=== PATIENT | female | born 1940 | race Caucasian/White ===

== ENCOUNTER 2017-03-16 14:24 | Emergency (ER) | payer MEDICARE, BC ==
[2017-03-16] MEDS ORDERED: SODIUM CHLORIDE 0.9% 1,000 ML IV ONE (14:33)
[2017-03-16] MEDS ORDERED: ONDANSETRON 4 MG/2 ML VIAL IVP STA (14:33)
--- NOTE | 2017-03-16 14:36 | ED ---
Dizziness HPI - General Stated Complaint: Dizziness Time Seen by Provider: 03/16/17 14:31 Source: patient, EMS Mode of arrival: EMS Limitations: no limitations - History of Present Illness Initial Comments: This is a 76-year-old female with a history of CAD and asthma who presents emergency department for an episode of lightheadedness associated with nausea and vomiting. She states that she had eaten a sandwich and then came home and laid on the couch. The phone rang and she got up to answer the phone answered talking to her son area and shortly after talking to her son she felt very nauseated and lightheaded and thought she was going to pass out. She did not pass out and called an ambulance. She states that she not have any associated chest pain or shortness of breath. She states that she no longer feels lightheaded however has some persistent nausea. No current chest pain. No history of blood clots. No recent trauma or surgeries. No other complaints. - Related Data Home Medications Medication Instructions Recorded Confirmed Beclomethasone Dipropionate [Qvar 2 puff INHALATION RT-BID 04/17/14 03/16/17 80 mcg/puff] Clopidogrel [Plavix] 75 mg PO Q48H 04/17/14 03/16/17 Famotidine [Pepcid] 20 mg PO BID 04/17/14 03/16/17 Montelukast [Singulair] 10 mg PO HS 04/17/14 03/16/17 Nitroglycerin Sl Tabs [Nitrostat] 0.4 mg SL Q5M PRN 04/17/14 03/16/17 Rosuvastatin Calcium [Crestor] 10 mg PO Q48H 04/17/14 03/16/17 Aspirin 81 mg PO DAILY 04/18/14 03/16/17 Metoprolol Tartrate [Lopressor] 25 mg PO BID 04/18/14 03/16/17 Ascorbic Acid [Vitamin C] 500 mg PO DAILY 03/16/17 03/16/17 Multivitamins, Thera [Multivitamin 1 tab PO DAILY 03/16/17 03/16/17 (formulary)] Vitamin E 200 unit PO DAILY 03/16/17 03/16/17 Allergies Allergy/AdvReac Type Severity Reaction Status Date / Time codeine Allergy Unknown Verified 03/16/17 15:20 Milk Containing Products AdvReac Mild Wheezing Verified 03/16/17 15:22 [Dairy] Review of Systems ROS Statement: Those systems with pertinent positive or pertinent negative responses have been documented in the HPI. ROS Other: All systems not noted in ROS Statement are negative. Past Medical History Past Medical History: Asthma, Coronary Artery Disease (CAD), Chest Pain / Angina , Fibromyalgia, GERD/Reflux, Hyperlipidemia, Hypertension Additional Past Medical History / Comment(s): hiatal hernia History of Any Multi-Drug Resistant Organisms: None Reported Past Surgical History: Appendectomy, Heart Catheterization With Stent, Tonsillectomy, Tubal Ligation Past Anesthesia/Blood Transfusion Reactions: No Reported Reaction Date of Last Stent Placement:: 12/2013 Past Psychological History: No Psychological Hx Reported Smoking Status: Never smoker Past Alcohol Use History: None Reported Past Drug Use History: None Reported - Past Family History Father Family Medical History: Coronary Artery Disease (CAD), Diabetes Mellitus General Exam - General Exam Comments Initial Comments: Constitutional: Awake alert Appears comfortable Head: Normocephalic atraumatic Eyes: no conjunctival injection No scleral icterus EOMI pupils are 3 mm reactive bilaterally Neck: No JVD Supple Heart: Regular rate rhythm normal S1-S2 no murmurs Lungs: Clear to auscultation bilaterally No wheezing No rales Abdomen: Soft nondistended nontender Extremities: Non edematous DP pulses intact Radial pulses intact Neuro: A&Ox3 No focal neurologic deficits Psych: Appropriate mood and affect Limitations: no limitations Course Vital Signs 03/16/17 14:30 Temperature 96.9 F L Pulse Rate 85 Respiratory 18 Rate Blood Pressure 169/77 O2 Sat by Pulse 99 Oximetry EKG Findings - EKG Comments: EKG Findings:: EKG showing normal sinus rhythm with a rate of 88. No abnormal ST segment changes or T-wave inversions. QTC is 433. Other intervals are normal. No ectopy. Medical Decision Making - Medical Decision Making This is a 76-year-old female came in for an episode of presyncope. The patient felt improved after IV fluids and Zofran in emergency department. Blood work was reviewed and unremarkable. EKG was unremarkable as well. At this time feel the patient's symptoms were likely neurocardiogenic in nature and likely a result of her getting up from laying down on the couch. This time I feel the patient is okay to go home. She is close follow-up with her primary doctor. If she has any worsening or changing symptoms please return emergency Department for reevaluation. All questions were answered. - Lab Data Result diagrams: 03/16/17 14:20 03/16/17 14:20 Lab Results 03/16/17 03/16/17 03/16/17 Range/Units 14:20 14:20 14:20 WBC 6.0 (3.8-10.6) k/uL RBC 4.37 (3.80-5.40) m/uL Hgb 13.5 (11.4-16.0) gm/dL Hct 42.2 (34.0-46.0) % MCV 96.6 (80.0-100.0) fL MCH 30.9 (25.0-35.0) pg MCHC 32.1 (31.0-37.0) g/dL RDW 12.9 (11.5-15.5) % Plt Count 303 (150-450) k/uL Neutrophils % 64 % Lymphocytes % 24 % Monocytes % 5 % Eosinophils % 1 % Basophils % 3 % Neutrophils # 3.8 (1.3-7.7) k/uL Lymphocytes # 1.5 (1.0-4.8) k/uL Monocytes # 0.3 (0-1.0) k/uL Eosinophils # 0.1 (0-0.7) k/uL Basophils # 0.2 (0-0.2) k/uL Sodium 139 (137-145) mmol/L Potassium 4.3 (3.5-5.1) mmol/L Chloride 103 (98-107) mmol/L Carbon Dioxide 26 (22-30) mmol/L Anion Gap 10 mmol/L BUN 19 H (7-17) mg/dL Creatinine 0.65 (0.52-1.04) mg/dL Est GFR (MDRD) Af Amer >60 (>60 ml/min/1.73 sqM) Est GFR (MDRD) Non-Af >60 (>60 ml/min/1.73 sqM) Glucose 123 H (74-99) mg/dL Calcium 9.6 (8.4-10.2) mg/dL Magnesium 1.9 (1.6-2.3) mg/dL Total Bilirubin 0.7 (0.2-1.3) mg/dL AST 35 (14-36) U/L ALT 20 (9-52) U/L Alkaline Phosphatase 54 (38-126) U/L Troponin I <0.012 (0.000-0.034) ng/mL Total Protein 8.3 H (6.3-8.2) g/dL Albumin 4.3 (3.5-5.0) g/dL Disposition Clinical Impression: Pre-syncope Disposition: HOME SELF-CARE Condition: Stable Instructions: Near Syncope (ED), Lightheadedness (ED) Referrals: Cedric Mccormack MD [Primary Care Provider] - 1-2 days
[2017-03-16 14:53] LABS: Basophils # (A) 0.2 k/uL (0-0.2); Basophils % (A) 3 %; CH 31.4; CHCM 32.7; Eosinophils # (A) 0.1 k/uL (0-0.7); Eosinophils % (A) 1 %; HCT 42.2 % (34.0-46.0); HDW 2.33; HGB 13.5 gm/dL (11.4-16.0); Luc # (Auto) 0.17; Luc % (Auto) 3; Lymphocytes # (A) 1.5 k/uL (1.0-4.8); Lymphocytes % (A) 24 %; MCH 30.9 pg (25.0-35.0); MCHC 32.1 g/dL (31.0-37.0); MCV 96.6 fL (80.0-100.0); Mean Platelet Volume 6.9; Monocytes # (A) 0.3 k/uL (0-1.0); Monocytes % (A) 5 %; Neutrophils # (A) 3.8 k/uL (1.3-7.7); Neutrophils % (A) 64 %; RBC 4.37 m/uL (3.80-5.40); RDW 12.9 % (11.5-15.5); WBC (Perox) 5.84
[2017-03-16 15:17] LABS: ALT 20 U/L (9-52); AST 35 U/L (14-36); Alkaline Phosphatase 54 U/L (38-126); Anion Gap 10 mmol/L; Blood Urea Nitrogen 19 mg/dL (7-17); Calcium 9.6 mg/dL (8.4-10.2); Carbon Dioxide 26 mmol/L (22-30); Chloride 103 mmol/L (98-107); Glucose 123 mg/dL (74-99); Magnesium 1.9 mg/dL (1.6-2.3); Non-African American GFR(MDRD) >60 (>60 ml/min/1.73 sqM); Sodium 139 mmol/L (137-145); Total Bilirubin 0.7 mg/dL (0.2-1.3); Total Protein 8.3 g/dL (6.3-8.2)
[2017-03-16 15:36] LABS: Potassium 4.3 mmol/L (3.5-5.1)
[2017-03-16 16:15] VITALS: BP 153/82; PULSE 86; RESP 16; TEMP 98.1
== END 2017-03-16 16:27 | disposition home or self-care (01) ==
LOC: EC 14:24
DX: R55 Syncope and collapse (principal); R11.2 Nausea with vomiting, unspecified; J45.909 Unspecified asthma, uncomplicated; I25.10 Atherosclerotic heart disease of native coronary artery without angina pectoris; M79.7 Fibromyalgia; K21.9 Gastro-esophageal reflux disease without esophagitis; E78.5 Hyperlipidemia, unspecified; I10 Essential (primary) hypertension; Z79.82 Long term (current) use of aspirin; Z79.51 Long term (current) use of inhaled steroids; Z79.02 Long term (current) use of antithrombotics/antiplatelets; Z79.899 Other long term (current) drug therapy; Z88.5 Allergy status to narcotic agent; Z91.011 Allergy to milk products; Z86.79 Personal history of other diseases of the circulatory system; Z95.5 Presence of coronary angioplasty implant and graft
CPT/HCPCS: 36415; 93005; 80053; 83735; 84484; 85025; 99284; 96374; 96361; J2405

== ENCOUNTER 2017-08-31 03:37 | Observation (INO) | payer MEDICARE, BC ==
--- NOTE | 2017-08-31 04:04 | ED ---
General Adult HPI - General Chief complaint: Recheck/Abnormal Lab/Rx Stated complaint: jaw pain,nausea Time Seen by Provider: 08/31/17 04:00 Source: patient, RN notes reviewed Mode of arrival: ambulatory Limitations: no limitations - History of Present Illness Initial comments: This is a 76-year-old female history of heart disease and cardiac stents the last stent being in 2013 states she was awakened by jaw pain tonight. It lasted for about an hour. She did take a baby aspirin during this time. She states she does not normally get jaw pain or chest pain. No nausea vomiting or other symptoms reported. The pain was mild to moderate in severity currently is 0 - Related Data Home Medications Medication Instructions Recorded Confirmed Beclomethasone Dipropionate [Qvar 2 puff INHALATION RT-BID 04/17/14 08/31/17 80 mcg/puff] Famotidine [Pepcid] 20 mg PO BID 04/17/14 08/31/17 Montelukast [Singulair] 10 mg PO HS 04/17/14 08/31/17 Nitroglycerin Sl Tabs [Nitrostat] 0.4 mg SL Q5M PRN 04/17/14 08/31/17 Rosuvastatin Calcium [Crestor] 10 mg PO Q48H 04/17/14 08/31/17 Aspirin 81 mg PO DAILY 04/18/14 08/31/17 Metoprolol Tartrate [Lopressor] 25 mg PO BID 04/18/14 08/31/17 Ascorbic Acid [Vitamin C] 500 mg PO DAILY 03/16/17 08/31/17 Multivitamins, Thera [Multivitamin 1 tab PO DAILY 03/16/17 08/31/17 (formulary)] Vitamin E 200 unit PO DAILY 03/16/17 08/31/17 Aspirin 81 mg PO DAILY 08/31/17 08/31/17 Allergies Allergy/AdvReac Type Severity Reaction Status Date / Time codeine Allergy Unknown Verified 08/31/17 03:43 Milk Containing Products AdvReac Mild Wheezing Verified 08/31/17 03:43 [Dairy] Review of Systems ROS Statement: Those systems with pertinent positive or pertinent negative responses have been documented in the HPI. ROS Other: All systems not noted in ROS Statement are negative. Past Medical History Past Medical History: Asthma, Coronary Artery Disease (CAD), Chest Pain / Angina , Fibromyalgia, GERD/Reflux, Hyperlipidemia, Hypertension Additional Past Medical History / Comment(s): hiatal hernia History of Any Multi-Drug Resistant Organisms: None Reported Past Surgical History: Appendectomy, Heart Catheterization With Stent, Tonsillectomy, Tubal Ligation Past Anesthesia/Blood Transfusion Reactions: No Reported Reaction Date of Last Stent Placement:: 12/2013 Past Psychological History: No Psychological Hx Reported Smoking Status: Never smoker Past Alcohol Use History: None Reported Past Drug Use History: None Reported - Past Family History Father Family Medical History: Coronary Artery Disease (CAD), Diabetes Mellitus General Exam - General Exam Comments Initial Comments: This is a well-developed well-nourished awake alert oriented 3 female Limitations: no limitations General appearance: alert, in no apparent distress Head exam: Present: atraumatic, normocephalic, normal inspection Eye exam: Present: normal appearance, PERRL, EOMI. Absent: scleral icterus, conjunctival injection, periorbital swelling ENT exam: Present: normal exam, mucous membranes moist Neck exam: Present: normal inspection. Absent: tenderness, meningismus, lymphadenopathy Respiratory exam: Present: normal lung sounds bilaterally. Absent: respiratory distress, wheezes, rales, rhonchi, stridor Cardiovascular Exam: Present: regular rate, normal rhythm, normal heart sounds. Absent: systolic murmur, diastolic murmur, rubs, gallop, clicks GI/Abdominal exam: Present: soft, normal bowel sounds. Absent: distended, tenderness, guarding, rebound, rigid Extremities exam: Present: normal inspection, full ROM, normal capillary refill. Absent: tenderness, pedal edema, joint swelling, calf tenderness Back exam: Present: normal inspection Neurological exam: Present: alert, oriented X3, CN II-XII intact Psychiatric exam: Present: normal affect, normal mood Skin exam: Present: warm, dry, intact, normal color. Absent: rash Course Vital Signs 08/31/17 08/31/17 08/31/17 03:41 04:25 05:27 Temperature 98.1 F Pulse Rate 103 H 93 89 Respiratory 16 18 16 Rate Blood Pressure 158/82 150/82 140/71 O2 Sat by Pulse 94 L 96 96 Oximetry EKG Findings - EKG Results: EKG: interpreted by AMBER, sinus rhythm (Sinus rhythm rate of 98 PA interval 198 QRS 70 daily QT since QTC of 336/428 evidence of old septal changes.) Medical Decision Making - Medical Decision Making Patient remains pain-free at did have a long discussion with her regarding the findings patient has not had any type of pain since the stenting procedure in 2013 this is a new occurrence she will be admitted for observation for evaluation by cardiology. She remains pain-free at this time. - Lab Data Result diagrams: 08/31/17 04:14 08/31/17 04:14 Lab Results 08/31/17 08/31/17 08/31/17 Range/Units 04:14 04:14 04:14 WBC 5.7 (3.8-10.6) k/uL RBC 4.03 (3.80-5.40) m/uL Hgb 12.5 (11.4-16.0) gm/dL Hct 40.1 (34.0-46.0) % MCV 99.6 (80.0-100.0) fL MCH 31.0 (25.0-35.0) pg MCHC 31.2 (31.0-37.0) g/dL RDW 13.8 (11.5-15.5) % Plt Count 278 (150-450) k/uL Neutrophils % 57 % Lymphocytes % 29 % Monocytes % 9 % Eosinophils % 2 % Basophils % 1 % Neutrophils # 3.3 (1.3-7.7) k/uL Lymphocytes # 1.7 (1.0-4.8) k/uL Monocytes # 0.5 (0-1.0) k/uL Eosinophils # 0.1 (0-0.7) k/uL Basophils # 0.0 (0-0.2) k/uL PT (9.0-12.0) sec INR (<1.2) APTT (22.0-30.0) sec Sodium 141 (137-145) mmol/L Potassium 4.4 (3.5-5.1) mmol/L Chloride 107 (98-107) mmol/L Carbon Dioxide 24 (22-30) mmol/L Anion Gap 10 mmol/L BUN 22 H (7-17) mg/dL Creatinine 0.59 (0.52-1.04) mg/dL Est GFR (MDRD) Af Amer >60 (>60 ml/min/1.73 sqM) Est GFR (MDRD) Non-Af >60 (>60 ml/min/1.73 sqM) Glucose 99 (74-99) mg/dL Calcium 9.3 (8.4-10.2) mg/dL Magnesium 2.0 (1.6-2.3) mg/dL Total Bilirubin 0.2 (0.2-1.3) mg/dL AST 20 (14-36) U/L ALT 32 (9-52) U/L Alkaline Phosphatase 57 (38-126) U/L Total Creatine Kinase 43 (30-135) U/L CK-MB (CK-2) 1.8 (0.0-2.4) ng/mL CK-MB (CK-2) Rel Index 4.2 Troponin I <0.012 (0.000-0.034) ng/mL Total Protein 6.9 (6.3-8.2) g/dL Albumin 4.0 (3.5-5.0) g/dL 08/31/17 Range/Units 04:35 WBC (3.8-10.6) k/uL RBC (3.80-5.40) m/uL Hgb (11.4-16.0) gm/dL Hct (34.0-46.0) % MCV (80.0-100.0) fL MCH (25.0-35.0) pg MCHC (31.0-37.0) g/dL RDW (11.5-15.5) % Plt Count (150-450) k/uL Neutrophils % % Lymphocytes % % Monocytes % % Eosinophils % % Basophils % % Neutrophils # (1.3-7.7) k/uL Lymphocytes # (1.0-4.8) k/uL Monocytes # (0-1.0) k/uL Eosinophils # (0-0.7) k/uL Basophils # (0-0.2) k/uL PT 9.6 (9.0-12.0) sec INR 0.9 (<1.2) APTT 18.6 L (22.0-30.0) sec Sodium (137-145) mmol/L Potassium (3.5-5.1) mmol/L Chloride (98-107) mmol/L Carbon Dioxide (22-30) mmol/L Anion Gap mmol/L BUN (7-17) mg/dL Creatinine (0.52-1.04) mg/dL Est GFR (MDRD) Af Amer (>60 ml/min/1.73 sqM) Est GFR (MDRD) Non-Af (>60 ml/min/1.73 sqM) Glucose (74-99) mg/dL Calcium (8.4-10.2) mg/dL Magnesium (1.6-2.3) mg/dL Total Bilirubin (0.2-1.3) mg/dL AST (14-36) U/L ALT (9-52) U/L Alkaline Phosphatase (38-126) U/L Total Creatine Kinase (30-135) U/L CK-MB (CK-2) (0.0-2.4) ng/mL CK-MB (CK-2) Rel Index Troponin I (0.000-0.034) ng/mL Total Protein (6.3-8.2) g/dL Albumin (3.5-5.0) g/dL - Radiology Data Radiology results: report reviewed (Imaging review shows no acute findings.), image reviewed Disposition Clinical Impression: Unstable angina Disposition: ADMITTED IP TO THIS [facility] Condition: Stable Referrals: Cedric Mccormack MD [Primary Care Provider] - 1-2 days
[2017-08-31 04:40] LABS: Basophils % (A) 1 %; CH 32.5; CHCM 32.9; Eosinophils # (A) 0.1 k/uL (0-0.7); Eosinophils % (A) 2 %; HCT 40.1 % (34.0-46.0); HDW 2.32; HGB 12.5 gm/dL (11.4-16.0); Luc # (Auto) 0.14; Luc % (Auto) 3; Lymphocytes # (A) 1.7 k/uL (1.0-4.8); Lymphocytes % (A) 29 %; MCHC 31.2 g/dL (31.0-37.0); MCV 99.6 fL (80.0-100.0); Mean Platelet Volume 7.4; Monocytes # (A) 0.5 k/uL (0-1.0); Monocytes % (A) 9 %; Neutrophils # (A) 3.3 k/uL (1.3-7.7); Neutrophils % (A) 57 %; RBC 4.03 m/uL (3.80-5.40); RDW 13.8 % (11.5-15.5); WBC 5.7 k/uL (3.8-10.6); WBC (Perox) 5.76
[2017-08-31 04:41] LABS: ALT 32 U/L (9-52); AST 20 U/L (14-36); Alkaline Phosphatase 57 U/L (38-126); Anion Gap 10 mmol/L; Blood Urea Nitrogen 22 mg/dL (7-17); Calcium 9.3 mg/dL (8.4-10.2); Carbon Dioxide 24 mmol/L (22-30); Chloride 107 mmol/L (98-107); Glucose 99 mg/dL (74-99); Non-African American GFR(MDRD) >60 (>60 ml/min/1.73 sqM); Potassium 4.4 mmol/L (3.5-5.1); Sodium 141 mmol/L (137-145); Total Bilirubin 0.2 mg/dL (0.2-1.3); Total Protein 6.9 g/dL (6.3-8.2)
--- NOTE | 2017-08-31 04:44 | XR ---
EXAM: XR Chest, 2 Views CLINICAL HISTORY: Reason: Chest Pain TECHNIQUE: Frontal and lateral views of the chest. COMPARISON: 04/17/14. FINDINGS: Lungs: Unremarkable. No consolidation. Pleural space: Unremarkable. No pneumothorax. Heart: Unremarkable. No cardiomegaly. Mediastinum: Unremarkable. Bones/joints: Osteopenia. IMPRESSION: No acute findings or substantial change
[2017-08-31 04:59] LABS: Creatine Kinase 43 U/L (30-135)
[2017-08-31 05:02] LABS: INR 0.9 (<1.2); Prothrombin Time 9.6 sec (9.0-12.0)
[2017-08-31 05:12] LABS: Creatine Kinase MB 1.8 ng/mL (0.0-2.4); Troponin I <0.012 ng/mL (0.000-0.034)
[2017-08-31 05:17] LABS: Partial Thromboplastin Time 18.6 sec (22.0-30.0)
[2017-08-31] MEDS ORDERED: NITROGLYCERIN SL TABS 0.4 MG TAB SUBLINGUAL PRN (06:10)
[2017-08-31] MEDS ORDERED: HEPARIN SODIUM,PORCINE 5,000 UNIT/ML 1 ML VIAL IV ONE (06:10)
[2017-08-31] MEDS ORDERED: ASPIRIN 81 MG PO STA (06:13)
[2017-08-31] MEDS ORDERED: HEPARIN SODIUM,PORCINE/D5W PMX 25,000 UNIT in DEXTROSE/WATER 1 500ML.BAG IV SCH (06:15)
[2017-08-31] MEDS ORDERED: ATORVASTATIN 20 MG TAB PO SCH (06:15)
[2017-08-31] MEDS ORDERED: SODIUM CHLORIDE 0.9% 1,000 ML IV SCH (06:15)
--- NOTE | 2017-08-31 08:35 | P.CRDCN ---
History of Present Illness Consult date: 08/31/17 Chief complaint: Jaw pain History of present illness: This is a pleasant 76-year-old female patient who sees Dr. RITIKA Pop in the office on regular basis with a known history of coronary artery disease and prior stenting of the LAD and left circumflex in 2013, hypertension, dyslipidemia, presented to the emergency room complaining of jaw The patient was in her usual state of health until yesterday when she had no power at home and she woke up at the middle of the night complaining of jaw pain. No chest pain or discomfort. No shortness of breath. No dizziness or lightheadedness and no syncope. The EKG shows sinus rhythm without any significant ST or T-wave abnormalities. We only have one set of enzymes came in to be unremarkable. The patient is not aware of any recent stress test was performed as an outpatient but we will obtain previous medical records and review them. She seems to be pain-free at this point and she is laying comfortably. Past Medical History Past Medical History: Asthma, Coronary Artery Disease (CAD), Chest Pain / Angina , Fibromyalgia, GERD/Reflux, Hyperlipidemia, Hypertension, Syncope Additional Past Medical History / Comment(s): Syncope twice in airplane, allergic rhinitis, UTIs, hiatal hernia History of Any Multi-Drug Resistant Organisms: None Reported Past Surgical History: Appendectomy, Heart Catheterization With Stent, Tonsillectomy, Tubal Ligation Past Anesthesia/Blood Transfusion Reactions: No Reported Reaction Date of Last Stent Placement:: 04/2014 Smoking Status: Never smoker - Past Family History Mother Family Medical History: Coronary Artery Disease (CAD), Diabetes Mellitus Additional Family Medical History / Comment(s): Pt is adopted. Father Family Medical History: Coronary Artery Disease (CAD), Diabetes Mellitus Additional Family Medical History / Comment(s): Pt is adopted. Medications and Allergies Home Medications Medication Instructions Recorded Confirmed Type Beclomethasone Dipropionate [Qvar 2 puff INHALATION RT-BID 04/17/14 08/31/17 History 80 mcg/puff] Famotidine [Pepcid] 20 mg PO BID 04/17/14 08/31/17 History Montelukast [Singulair] 10 mg PO HS 04/17/14 08/31/17 History Nitroglycerin Sl Tabs [Nitrostat] 0.4 mg SL Q5M PRN 04/17/14 08/31/17 History Rosuvastatin Calcium [Crestor] 10 mg PO Q48H 04/17/14 08/31/17 History Aspirin 81 mg PO DAILY 04/18/14 08/31/17 History Metoprolol Tartrate [Lopressor] 25 mg PO BID 04/18/14 08/31/17 History Ascorbic Acid [Vitamin C] 500 mg PO DAILY 03/16/17 08/31/17 History Multivitamins, Thera [Multivitamin 1 tab PO DAILY 03/16/17 08/31/17 History (formulary)] Vitamin E 200 unit PO DAILY 03/16/17 08/31/17 History Allergies Allergy/AdvReac Type Severity Reaction Status Date / Time codeine Allergy Unknown Verified 08/31/17 07:19 Milk Containing Products AdvReac Mild Wheezing Verified 08/31/17 07:19 [Dairy] Physical Exam Vitals: Vital Signs Temp Pulse Resp BP Pulse Ox 08/31/17 06:59 97 138/75 95 08/31/17 06:26 97.5 F L 89 18 138/75 95 08/31/17 05:27 89 16 140/71 96 08/31/17 04:25 93 18 150/82 96 08/31/17 03:41 98.1 F 103 H 16 158/82 94 L Intake and Output 08/30/17 08/31/17 08/31/17 22:59 06:59 14:59 Other: Weight 71.668 kg - Constitutional General appearance: no acute distress - Respiratory Respiratory: bilateral: CTA - Cardiovascular Rhythm: regular Heart sounds: normal: S1, S2 Results 08/31/17 04:14 08/31/17 04:14 Cardiac Enzymes 08/31/17 08/31/17 Range/Units 04:14 04:14 AST 20 (14-36) U/L CK-MB (CK-2) 1.8 (0.0-2.4) ng/mL Troponin I <0.012 (0.000-0.034) ng/mL Coagulation 08/31/17 Range/Units 04:35 PT 9.6 (9.0-12.0) sec APTT 18.6 L (22.0-30.0) sec CBC 08/31/17 Range/Units 04:14 WBC 5.7 (3.8-10.6) k/uL RBC 4.03 (3.80-5.40) m/uL Hgb 12.5 (11.4-16.0) gm/dL Hct 40.1 (34.0-46.0) % Plt Count 278 (150-450) k/uL Comprehensive Metabolic Panel 08/31/17 Range/Units 04:14 Sodium 141 (137-145) mmol/L Potassium 4.4 (3.5-5.1) mmol/L Chloride 107 (98-107) mmol/L Carbon Dioxide 24 (22-30) mmol/L BUN 22 H (7-17) mg/dL Creatinine 0.59 (0.52-1.04) mg/dL Glucose 99 (74-99) mg/dL Calcium 9.3 (8.4-10.2) mg/dL AST 20 (14-36) U/L ALT 32 (9-52) U/L Alkaline Phosphatase 57 (38-126) U/L Total Protein 6.9 (6.3-8.2) g/dL Albumin 4.0 (3.5-5.0) g/dL Current Medications Generic Name Dose Route Start Last Admin Trade Name Freq PRN Reason Stop Dose Admin Ascorbic Acid 500 mg 08/31/17 09:00 Vitamin C PO DAILY [facility] Aspirin 325 mg 09/01/17 09:00 Aspirin PO DAILY [facility] Atorvastatin Calcium 20 mg 08/31/17 06:15 Lipitor PO Q48H [facility] Beclomethasone Dipropionate 2 puff 08/31/17 08:00 Qvar INHALATION RT-BID [facility] Famotidine 20 mg 08/31/17 09:00 Pepcid PO BID [facility] Heparin Sodium/Dextrose 25,000 500 mls @ 17.2 mls/hr 08/31/17 06:15 08/31/17 06:25 unit/ IV Solution IV 12 units/kg/hr .Q24H [facility] 17.2 mls/hr Protocol Administration 12 UNITS/KG/HR Sodium Chloride 1,000 mls @ 20 mls/hr 08/31/17 06:15 08/31/17 06:24 Saline 0.9% IV 20 mls/hr .Q24H [facility] Administration Metoprolol Tartrate 25 mg 08/31/17 09:00 Lopressor PO BID [facility] Montelukast Sodium 10 mg 08/31/17 21:00 Singulair PO HS [facility] Nitroglycerin 0.4 mg 08/31/17 06:10 Nitrostat SUBLINGUAL Q5M PRN Chest Pain Vitamin E 400 unit 08/31/17 09:00 Vitamin E PO DAILY [facility] Intake and Output 08/30/17 08/31/17 08/31/17 22:59 06:59 14:59 Other: Weight 71.668 kg 08/31/17 04:14 08/31/17 04:14 Assessment and Plan Assessment: This is pleasant 76-year-old female patient with established CAD and prior revascularization in terms of stenting of the LAD and left circumflex in 2013 presented to the hospital complaining of jaw pain without any chest pain or discomfort. She does not recall what was the presentation when she underwent stenting in back in 2013. We will continue following up with the serial cardiac enzymes. Obtain the previous medical records from the office to assess the last time she underwent stress test and echocardiogram. And continue following up with her. Further recommendation depends on her workup in the hospital.
[2017-08-31] MEDS: BECLOMETHASONE DIP 80 MCG/PUFF INHALER INHALATION SCH ×2 (08:48→20:21)
[2017-08-31] MEDS: FAMOTIDINE 20 MG TAB PO SCH ×2 (11:02→21:14)
[2017-08-31 11:23] LABS: Creatine Kinase 40 U/L (30-135)
[2017-08-31 11:36] LABS: Creatine Kinase MB 1.5 ng/mL (0.0-2.4); Troponin I <0.012 ng/mL (0.000-0.034)
[2017-08-31] MEDS: METOPROLOL TARTRATE 25 MG TAB PO SCH ×2 (13:52→20:35)
--- NOTE | 2017-08-31 16:42 | P.HPIM ---
History of Present Illness H&P Date: 08/31/17 Chief Complaint: Chest pain This is a 76-year-old female patient of Dr. Huntley and Dr. RITIKA Pop with a past history of coronary artery disease, hypertension, hypertensive cardiovascular disease, hyperlipidemia. Patient underwent heart catheterization in December 2013 and drug-eluting stent was placed in the distal LAD. Patient presented in April 2014 with chest pain underwent another heart catheterization and PTCA and stenting of circumflex and proximal mid LAD. Patient complains of bilateral jaw pain. She denies any chest pain. She did take a baby aspirin that helped jaw pain. She has had none since then. She denies having any abdominal pain, no edema no lightheadedness or dizziness. No shortness of breath. Patient presented to [facility] emergency center. Chest x-ray showed no acute findings. EKG was a sinus rhythm with no significant ST-T wave changes. Troponins have been negative on 2 draws. Patient has been seen by living coach, Dr. Shah, with plan for additional troponin and stress test for tomorrow. Review of Systems All systems: negative Constitutional: Denies anorexia, Denies chills, Denies fatigue, Denies fever, Denies lethargy, Denies malaise, Denies poor appetite, Denies sweats, Denies weight loss Eyes: denies blurred vision, denies pain Ears, nose, mouth and throat: Denies dental pain, Denies headache, Denies mouth pain, Denies sore throat, Denies vertigo Cardiovascular: Reports chest pain, Denies decreased exercise tolerance, Denies dyspnea on exertion, Denies edema, Denies leg edema, Denies lightheadedness, Denies orthopnea, Denies shortness of breath, Denies syncope Respiratory: Denies cough, Denies cough with sputum, Denies dyspnea, Denies excessive sputum, Denies hemoptysis, Denies home oxygen Gastrointestinal: Denies abdominal pain, Denies diarrhea, Denies nausea, Denies vomiting Genitourinary: Denies dysuria, Denies hematuria, Denies urgency, Denies urinary frequency Musculoskeletal: Denies myalgias Integumentary: Denies pruritus, Denies rash Neurological: Denies numbness, Denies weakness Psychiatric: Denies anxiety, Denies depression Endocrine: Denies fatigue, Denies weight change Past Medical History Past Medical History: Asthma, Coronary Artery Disease (CAD), Chest Pain / Angina , Fibromyalgia, GERD/Reflux, Hyperlipidemia, Hypertension, Syncope Additional Past Medical History / Comment(s): Syncope twice in airplane, allergic rhinitis, UTIs, hiatal hernia History of Any Multi-Drug Resistant Organisms: None Reported Past Surgical History: Appendectomy, Heart Catheterization With Stent, Tonsillectomy, Tubal Ligation Past Anesthesia/Blood Transfusion Reactions: No Reported Reaction Date of Last Stent Placement:: 04/2014 Smoking Status: Never smoker Additional Past Alcohol Use History / Comment(s): Patient is a lifelong nonsmoker. She has used alcohol occasionally. - Past Family History Mother Family Medical History: Coronary Artery Disease (CAD), Diabetes Mellitus Additional Family Medical History / Comment(s): Pt is adopted. Father Family Medical History: Coronary Artery Disease (CAD), Diabetes Mellitus Additional Family Medical History / Comment(s): Pt is adopted. Medications and Allergies Home Medications Medication Instructions Recorded Confirmed Type Beclomethasone Dipropionate [Qvar 2 puff INHALATION RT-BID 04/17/14 08/31/17 History 80 mcg/puff] Famotidine [Pepcid] 20 mg PO BID 04/17/14 08/31/17 History Montelukast [Singulair] 10 mg PO HS 04/17/14 08/31/17 History Nitroglycerin Sl Tabs [Nitrostat] 0.4 mg SL Q5M PRN 04/17/14 08/31/17 History Rosuvastatin Calcium [Crestor] 10 mg PO Q48H 04/17/14 08/31/17 History Aspirin 81 mg PO DAILY 04/18/14 08/31/17 History Metoprolol Tartrate [Lopressor] 25 mg PO BID 04/18/14 08/31/17 History Ascorbic Acid [Vitamin C] 500 mg PO DAILY 03/16/17 08/31/17 History Multivitamins, Thera [Multivitamin 1 tab PO DAILY 03/16/17 08/31/17 History (formulary)] Vitamin E 200 unit PO DAILY 03/16/17 08/31/17 History Allergies Allergy/AdvReac Type Severity Reaction Status Date / Time codeine Allergy Unknown Verified 08/31/17 07:19 Milk Containing Products AdvReac Mild Wheezing Verified 08/31/17 07:19 [Dairy] Physical Exam Vitals: Vital Signs Temp Pulse Pulse Resp BP BP Pulse Ox 08/31/17 11:59 97.8 F 74 18 155/87 95 08/31/17 07:15 97.8 F 92 18 149/83 97 08/31/17 06:59 97 138/75 95 08/31/17 06:26 97.5 F L 89 18 138/75 95 08/31/17 05:27 89 16 140/71 96 08/31/17 04:25 93 18 150/82 96 08/31/17 03:41 98.1 F 103 H 16 158/82 94 L Intake and Output 08/30/17 08/31/17 08/31/17 22:59 06:59 14:59 Other: Weight 71.668 kg 73.2 kg Patient Weight 09/01/17 06:59 Weight 73.2 kg Gen: This is a 76-year-old female. She is sitting up in bed and appears to be in no acute distress. No respiratory distress noted. HEENT: Head is atraumatic, normocephalic. Pupils equal, round. Sclerae is anicteric. NECK: Supple. No JVD. No lymphadenopathy. No thyromegaly. LUNGS: Clear to auscultation. No wheezes or rhonchi. No intercostal retractions. HEART: Regular rate and rhythm. No murmur. ABDOMEN: Soft. Bowel sounds are present. No masses. No tenderness. EXTREMITIES: No pedal edema. No calf tenderness. Dorsalis pedis is palpable bilaterally. NEUROLOGICAL: Patient is awake, alert and oriented x3. Cranial nerves 2 through 12 are grossly intact. Results CBC & Chem 7: 08/31/17 04:14 08/31/17 04:14 Labs: Abnormal Lab Results - Last 24 Hours (Table) 08/31/17 08/31/17 Range/Units 04:14 04:35 APTT 18.6 L (22.0-30.0) sec BUN 22 H (7-17) mg/dL Thrombosis Risk Factor Assmnt - DVT/VTE Prophylaxis DVT/VTE Prophylaxis: Pharmacologic Prophylaxis ordered - Choose All That Apply Any of the Below Risk Factors Present?: Yes Other Risk Factors: Yes Each Risk Factor Represents 2 Points: Age 61-74 years Other congenital or acquired thrombophilia - If yes, enter type in comment: No Thrombosis Risk Factor Assessment Total Risk Factor Score: 2 Thrombosis Risk Factor Assessment Level: Low Risk Assessment and Plan Plan: 1. Jaw pain in a patient with history of coronary artery disease. Repeat troponins to be obtained. Stress test tomorrow. Cardiology consult appreciated. 2. Hypertension. Continue metoprolol 25 mg twice daily. 3. History of migraine headaches, stable. 4. Hyperlipidemia. Continue Crestor 10 mg every 48 hours. 5. History of mild intermittent asthma, stable. 6. Gastroesophageal reflux disease. Continue Pepcid. 7. ALLERGIC rhinitis, stable. Continue Singulair. Patient placed on the observation unit. Discharge plan: Return home Impression and plan of care have been directed as dictated by the signing physician. Triny Martinez nurse practitioner acting as scribe for signing physician.
[2017-08-31 17:01] LABS: Creatine Kinase 31 U/L (30-135)
[2017-08-31 17:13] LABS: Troponin I <0.012 ng/mL (0.000-0.034)
[2017-08-31] MEDS: VITAMIN E (DL,TOCOPHERYL ACET) 400 UNIT CAP PO SCH (17:54)
[2017-08-31] MEDS: ASCORBIC ACID 500 MG TAB PO SCH (17:54)
[2017-08-31] MEDS: ACETAMINOPHEN TAB 325 MG TAB PO PRN (20:35)
[2017-08-31] MEDS ORDERED: MONTELUKAST 10 MG TAB PO SCH (21:00)
[2017-09-01 03:20] LABS: Cholesterol 204 mg/dL (<200); HDL Cholesterol 43 mg/dL (40-60)
[2017-09-01] MEDS: ACETAMINOPHEN TAB 325 MG TAB PO PRN (03:41)
[2017-09-01] MEDS: BECLOMETHASONE DIP 80 MCG/PUFF INHALER INHALATION SCH (07:37)
[2017-09-01 08:09] VITALS: BP 165/92; PULSE 94; RESP 18; TEMP 97.8
[2017-09-01] MEDS ORDERED: ASPIRIN 325 MG TAB PO SCH (09:00)
[2017-09-01] MEDS: METOPROLOL TARTRATE 25 MG TAB PO SCH (09:32)
[2017-09-01] MEDS: ASCORBIC ACID 500 MG TAB PO SCH (09:33)
[2017-09-01] MEDS: FAMOTIDINE 20 MG TAB PO SCH (09:33)
[2017-09-01] MEDS: VITAMIN E (DL,TOCOPHERYL ACET) 400 UNIT CAP PO SCH (09:33)
--- NOTE | 2017-09-01 11:29 | P.DS ---
Providers Date of admission: 08/31/17 06:13 Attending physician: Alexia Vogel Consults: 08/31/17 06:10 Consult Physician Urgent Consulting Provider: Mayra Pop Consult Reason/Comments: Chest pain Do you want consulting provider notified?: Yes Primary care physician: [facility] Course: This is 76 years old female who presented to the hospital with new onset chest pain. Patient was evaluated by cardiology who recommended serial troponin and stress test on the second morning but patient did not go to stress test due to confusion with scheduling by cardiology and patient felt to be stable for discharge and follow-up outpatient for stress test on outpatient basis patient was agreeable to the current treatment plan was chest pain-free during the hospital stay and felt stable from the medical standpoint patient asked to follow up with her primary care physician in one to 2 days and with the closer on on the scheduled appointment plan discussed with the patient at length to the agreeable to the current treatment plan the patient was discharged in stable condition Patient Condition at Discharge: Stable Plan - Discharge Summary Discharge Rx Participant: No New Discharge Prescriptions: No Action Rosuvastatin Calcium [Crestor] 10 mg PO Q48H Nitroglycerin Sl Tabs [Nitrostat] 0.4 mg SL Q5M PRN PRN Reason: Pain Montelukast [Singulair] 10 mg PO HS Famotidine [Pepcid] 20 mg PO BID Beclomethasone Dipropionate [Qvar 80 mcg/puff] 2 puff INHALATION RT-BID Metoprolol Tartrate [Lopressor] 25 mg PO BID Aspirin 81 mg PO DAILY Vitamin E 200 unit PO DAILY Multivitamins, Thera [Multivitamin (formulary)] 1 tab PO DAILY Ascorbic Acid [Vitamin C] 500 mg PO DAILY Discharge Medication List Beclomethasone Dipropionate [Qvar 80 mcg/puff] 2 puff INHALATION RT-BID [History] Famotidine [Pepcid] 20 mg PO BID 04/17/14 [History] Montelukast [Singulair] 10 mg PO HS 04/17/14 [History] Nitroglycerin Sl Tabs [Nitrostat] 0.4 mg SL Q5M PRN 04/17/14 [History] Rosuvastatin Calcium [Crestor] 10 mg PO Q48H 04/17/14 [History] Aspirin 81 mg PO DAILY 04/18/14 [History] Metoprolol Tartrate [Lopressor] 25 mg PO BID 04/18/14 [History] Ascorbic Acid [Vitamin C] 500 mg PO DAILY 03/16/17 [History] Multivitamins, Thera [Multivitamin (formulary)] 1 tab PO DAILY 03/16/17 [History ] Vitamin E 200 unit PO DAILY 03/16/17 [History] Follow up Appointment(s)/Referral(s): Mayra Pop MD [STAFF PHYSICIAN] - 09/08/17 1:00 pm (Stress test. Nothing to eat or drink after midnight before your appointment. Please refer to prep sheet provided at discharge from [facility]. ) Cedric Mccormack MD [Primary Care Provider] - 1-2 days Patient Instructions/Handouts: Chest Pain (GEN)
--- NOTE | 2017-09-01 13:13 | P.PN ---
Subjective Progress Note Date: 09/01/17 Mrs. Pena is a very pleasant 76-year-old female who follows with Dr. Pop in the office on a regular basis. She has past medical history significant for known CAD with prior stenting of the LAD and left circumflex in 2013, hypertension and dyslipidemia. We are seeing her in consultation for complaints of jaw pain. She is being seen today in follow-up. She has had no further episodes of jaw pain. Denies chest pain, shortness of breath, dizziness , nausea or palpitations. Serial cardiac enzymes and EKG's have been done and rule out an acute coronary event. Blood pressure this morning 165/92 with heart rate 94. This was taken prior to administration of medications. Objective - Vital Signs Vital signs: Vital Signs Temp 97.8 F 09/01/17 08:00 Pulse 94 09/01/17 08:00 Resp 18 09/01/17 08:00 BP 165/92 09/01/17 08:00 Pulse Ox 94 L 09/01/17 08:00 Intake & Output 08/31/17 09/01/17 09/01/17 18:59 06:59 18:59 Intake Total 1020 250 Balance 1020 250 Weight 73.2 kg Intake: Oral 1020 250 Other: Voiding Method Toilet Toilet # Voids 1 - Exam GENERAL: Well-appearing, well-nourished and in no acute distress. NECK: Supple without JVD or thyromegaly. LUNGS: Breath sounds clear to auscultation bilaterally. Respiration equal and unlabored. No wheezes, rales or rhonchi. HEART: Regular rate and rhythm without murmurs, rubs or gallops. S1 and S2 heard. EXTREMITIES: Normal range of motion, no edema. No clubbing or cyanosis. Peripheral pulses intact and strong. - Labs CBC & Chem 7: 08/31/17 04:14 08/31/17 04:14 Labs: Abnormal Lab Results - Last 24 Hours (Table) 08/31/17 08/31/17 Range/Units 04:14 12:59 APTT 38.9 H (22.0-30.0) sec Triglycerides 207 H (<150) mg/dL Cholesterol 204 H (<200) mg/dL LDL Cholesterol, Calc 120 H (0-99) mg/dL Assessment and Plan Assessment: ASSESSMENT 1. Chest pain, atypical 2. History of known chronic stable CAD 3. Dyslipidemia PLAN She is stable for discharge home to follow up with Dr. Pop next week for a stress test in the office. Appointment has been made for Sep.08 at 1300. The patient is agreeable. Nurse Practitioner note has been reviewed, I agree with a documented findings and plan of care. Patient was seen and examined. Time with Patient: Greater than 30
== END 2017-09-01 12:00 | disposition home or self-care (01) ==
LOC: EC 03:37 → 3OBS 06:13
PROVIDERS: ADMIT Family Medicine; ATTEND Family Medicine
DX: R07.89 Other chest pain (principal); R68.84 Jaw pain; Z95.5 Presence of coronary angioplasty implant and graft; I25.10 Atherosclerotic heart disease of native coronary artery without angina pectoris; E78.5 Hyperlipidemia, unspecified; I11.9 Hypertensive heart disease without heart failure; J45.20 Mild intermittent asthma, uncomplicated; G43.909 Migraine, unspecified, not intractable, without status migrainosus; J30.9 Allergic rhinitis, unspecified; M79.7 Fibromyalgia; K21.9 Gastro-esophageal reflux disease without esophagitis; Z79.51 Long term (current) use of inhaled steroids; Z79.899 Other long term (current) drug therapy; Z79.82 Long term (current) use of aspirin; Z88.5 Allergy status to narcotic agent; Z91.011 Allergy to milk products; Z83.3 Family history of diabetes mellitus
CPT/HCPCS: 99285; 96365 ×2; 96376 ×2; 36415; 93005; 80061; 80053; 82550; 82553; 83735; 84484; 85025; 85610; 85730; 71020; G0378 ×2; J1644 ×2

== ENCOUNTER 2019-03-11 23:15 | Observation (INO) | payer MEDICARE, BC ==
[2019-03-11 23:51] LABS: Basophils # (A) 0.1 k/uL (0-0.2); Basophils % (A) 1 %; Eosinophils # (A) 0.2 k/uL (0-0.7); Eosinophils % (A) 2 %; HCT 40.4 % (34.0-46.0); HGB 13.2 gm/dL (11.4-16.0); Lymphocytes # (A) 1.7 k/uL (1.0-4.8); Lymphocytes % (A) 26 %; MCH 31.1 pg (25.0-35.0); MCHC 32.6 g/dL (31.0-37.0); MCV 95.3 fL (80.0-100.0); Mean Platelet Volume 6.7; Monocytes # (A) 0.4 k/uL (0-1.0); Monocytes % (A) 6 %; Neutrophils % (A) 62 %; Platelet Count 280 k/uL (150-450); RBC 4.24 m/uL (3.80-5.40); RDW 12.5 % (11.5-15.5); WBC 6.5 k/uL (3.8-10.6)
[2019-03-12] LABS: ALT 25 U/L (9-52); AST 18 U/L (14-36); Albumin 4.1 g/dL (3.5-5.0); Alkaline Phosphatase 67 U/L (38-126); Anion Gap 9 mmol/L; Blood Urea Nitrogen 26 mg/dL (7-17); Calcium 9.8 mg/dL (8.4-10.2); Carbon Dioxide 24 mmol/L (22-30); Chloride 107 mmol/L (98-107); Glucose 181 mg/dL (74-99); Magnesium 1.8 mg/dL (1.6-2.3); Potassium 3.9 mmol/L (3.5-5.1); Sodium 140 mmol/L (137-145); Total Bilirubin 0.2 mg/dL (0.2-1.3)
[2019-03-12 00:10] LABS: INR 0.9 (<1.2); Prothrombin Time 9.4 sec (9.0-12.0)
[2019-03-12 00:13] LABS: Partial Thromboplastin Time 21.7 sec (22.0-30.0)
--- NOTE | 2019-03-12 00:55 | XR ---
EXAM: XR Chest, 2 Views CLINICAL HISTORY: Chest Pain TECHNIQUE: Frontal and lateral views of the chest. COMPARISON: No relevant prior studies available. FINDINGS: Lungs: Unremarkable. No consolidation. Pleural space: Unremarkable. No pneumothorax. Heart: Unremarkable. No cardiomegaly. Mediastinum: Unremarkable. Bones/joints: Unremarkable. IMPRESSION: Unremarkable chest x-ray
[2019-03-12] MEDS ORDERED: HEPARIN SODIUM,PORCINE 5,000 UNIT/ML 1 ML VIAL IV ONE (01:11)
[2019-03-12] MEDS ORDERED: HEPARIN SODIUM,PORCINE 5,000 UNIT/ML 1 ML VIAL IV PRN (01:11)
--- NOTE | 2019-03-12 01:11 | ED ---
General Adult HPI - General Source: patient, EMS Mode of arrival: EMS Limitations: no limitations <Tasia Koroma - Last Filed: 03/12/19 02:02> <Cheryl Jones - Last Filed: 03/15/19 04:24> - General Chief complaint: Arrhythmia/Palpitations Stated complaint: Heart Palpitations Time Seen by Provider: 03/11/19 23:16 - History of Present Illness Initial comments: 78 year-old female patient presents to the emergency department today for evaluation of palpitations. Patient states that throughout the day today she's had intermittent episodes were she felt like her heart was pounding out of her chest. Patient states that she did get a little nauseated with these episodes but denies any chest pain, shortness of breath, or chest tightness. Patient states that she has had intermittent episodes similar to this in the past but they resolved on her own. Patient denies any history of irregular heartbeat or atrial fibrillation. Patient denies any leg or calf pain. Denies any fever or chills. Patient denies any recent rash, abdominal pain, nausea, vomiting, diarrhea, constipation, back pain, numbness, tingling, dizziness, weakness, hematuria, dysuria, urinary urgency, urinary frequency, headache, visual changes, or any other complaints. (Tasia Koroma) - Related Data Home Medications Medication Instructions Recorded Confirmed Beclomethasone Dipropionate [Qvar 2 puff INHALATION RT-BID 04/17/14 03/12/19 80 mcg/puff] Famotidine [Pepcid] 20 mg PO BID 04/17/14 03/12/19 Montelukast [Singulair] 10 mg PO HS 04/17/14 03/12/19 Rosuvastatin Calcium [Crestor] 10 mg PO DAILY 04/17/14 03/12/19 Aspirin 81 mg PO DAILY 04/18/14 03/12/19 Previous Rx's Medication Instructions Recorded Apixaban [Eliquis] 5 mg PO BID #60 tab 03/12/19 Metoprolol Tartrate [Lopressor] 50 mg PO BID #60 tab 03/12/19 Allergies Allergy/AdvReac Type Severity Reaction Status Date / Time codeine Allergy Unknown Verified 03/12/19 07:09 Milk Containing Products AdvReac Mild Wheezing Verified 03/12/19 07:09 [Dairy] Review of Systems ROS Other: All systems not noted in ROS Statement are negative. <Tasia Koroma - Last Filed: 03/12/19 02:02> ROS Other: All systems not noted in ROS Statement are negative. <RobertCheryl P - Last Filed: 03/15/19 04:24> ROS Statement: Those systems with pertinent positive or pertinent negative responses have been documented in the HPI. Past Medical History Past Medical History: Asthma, Coronary Artery Disease (CAD), Chest Pain / Angina, Fibromyalgia, GERD/Reflux, Hyperlipidemia, Hypertension, Syncope Additional Past Medical History / Comment(s): Syncope twice in airplane, allergic rhinitis, UTIs, hiatal hernia History of Any Multi-Drug Resistant Organisms: None Reported Past Surgical History: Appendectomy, Heart Catheterization With Stent, Tonsillectomy, Tubal Ligation Past Anesthesia/Blood Transfusion Reactions: No Reported Reaction Date of Last Stent Placement:: 04/2014 Past Psychological History: No Psychological Hx Reported Smoking Status: Never smoker Past Alcohol Use History: None Reported Past Drug Use History: None Reported - Past Family History Mother Family Medical History: Coronary Artery Disease (CAD), Diabetes Mellitus Additional Family Medical History / Comment(s): Pt is adopted. Father Family Medical History: Coronary Artery Disease (CAD), Diabetes Mellitus Additional Family Medical History / Comment(s): Pt is adopted. <Tasia Koroma Any - Last Filed: 03/12/19 02:02> General Exam Limitations: no limitations General appearance: alert, in no apparent distress, other (Physical well- developed, well-nourished adult female patient in no acute distress. Vital signs upon presentation are temperature 98.3F, pulse 87, respirations 17, blood pressure 137/70, pulse ox 97% on room air.) Eye exam: Present: normal appearance, PERRL, EOMI. Absent: scleral icterus, conjunctival injection, periorbital swelling ENT exam: Present: normal exam, normal oropharynx, mucous membranes moist Respiratory exam: Present: normal lung sounds bilaterally. Absent: respiratory distress, wheezes, rales, rhonchi, stridor Cardiovascular Exam: Present: tachycardia, irregular rhythm, normal heart soun ds. Absent: normal rhythm, systolic murmur, diastolic murmur, rubs, gallop, clicks GI/Abdominal exam: Present: soft, normal bowel sounds. Absent: distended, tenderness, guarding, rebound, rigid Neurological exam: Present: alert, oriented X3, CN II-XII intact Psychiatric exam: Present: normal affect, normal mood Skin exam: Present: warm, dry, intact, normal color. Absent: rash <Tasia Koroma - Last Filed: 03/12/19 02:02> Course Vital Signs 03/11/19 03/12/19 03/12/19 23:32 01:11 02:26 Temperature 98.3 F 98.1 F Pulse Rate 87 101 H 88 Respiratory 17 16 16 Rate Blood Pressure 137/70 118/67 111/67 O2 Sat by Pulse 97 96 94 L Oximetry EKG Findings - EKG Comments: EKG Findings:: EKG obtained at 2318 shows atrial fibrillation with RVR with a ventricular rate of 103, QRS duration 66, QT 328, QTC 429. No evidence of ST elevation or depression. <Tasia Koroma - Last Filed: 03/12/19 02:02> Medical Decision Making - Lab Data Result diagrams: 03/11/19 23:25 03/11/19 23:25 - Radiology Data Radiology results: report reviewed, image reviewed <Tasia Koroma - Last Filed: 03/12/19 02:02> - Lab Data Result diagrams: 03/12/19 05:25 03/11/19 23:25 <Cheryl Jones - Last Filed: 03/15/19 04:24> - Medical Decision Making 78 year-old female patient presents to the emergency department today for evaluation of palpitations. Patient reports intermittent episodes of feeling her heart pounding out of her chest. Upon arrival patient is in A. fib with RVR . Labs reviewed and were unremarkable. Patient denies chest pain or shortness of breath. Patient did convert to normal sinus rhythm in the department. Given that this is the first time patient has been in atrial fibrillation was admitted to the hospital for anticoagulation and further evaluation by cardiology. I did discuss findings, results, and plan with the patient, she is agreeable. (Tasia Koroma) I personally saw and examined the patient. I reviewed and agree with the mid- level provider findings including all diagnostic interpretations and treatment plans as written unless otherwise stated. Patient to be admitted for evaluation by cardiology. (Cheryl Jones) - Lab Data Lab Results 03/11/19 03/11/19 03/11/19 Range/Units 23:25 23:25 23:25 WBC 6.5 (3.8-10.6) k/uL RBC 4.24 (3.80-5.40) m/uL Hgb 13.2 (11.4-16.0) gm/dL Hct 40.4 (34.0-46.0) % MCV 95.3 (80.0-100.0) fL MCH 31.1 (25.0-35.0) pg MCHC 32.6 (31.0-37.0) g/dL RDW 12.5 (11.5-15.5) % Plt Count 280 (150-450) k/uL Neutrophils % 62 % Lymphocytes % 26 % Monocytes % 6 % Eosinophils % 2 % Basophils % 1 % Neutrophils # 4.0 (1.3-7.7) k/uL Lymphocytes # 1.7 (1.0-4.8) k/uL Monocytes # 0.4 (0-1.0) k/uL Eosinophils # 0.2 (0-0.7) k/uL Basophils # 0.1 (0-0.2) k/uL PT 9.4 (9.0-12.0) sec INR 0.9 (<1.2) APTT 21.7 L (22.0-30.0) sec Sodium 140 (137-145) mmol/L Potassium 3.9 (3.5-5.1) mmol/L Chloride 107 (98-107) mmol/L Carbon Dioxide 24 (22-30) mmol/L Anion Gap 9 mmol/L BUN 26 H (7-17) mg/dL Creatinine 0.61 (0.52-1.04) mg/dL Est GFR (CKD-EPI)AfAm >90 (>60 ml/min/1.73 sqM) Est GFR (CKD-EPI)NonAf 88 (>60 ml/min/1.73 sqM) Glucose 181 H (74-99) mg/dL Calcium 9.8 (8.4-10.2) mg/dL Magnesium 1.8 (1.6-2.3) mg/dL Total Bilirubin 0.2 (0.2-1.3) mg/dL AST 18 (14-36) U/L ALT 25 (9-52) U/L Alkaline Phosphatase 67 (38-126) U/L Troponin I (0.000-0.034) ng/mL NT-Pro-B Natriuret Pep pg/mL Total Protein 7.0 (6.3-8.2) g/dL Albumin 4.1 (3.5-5.0) g/dL TSH 1.350 (0.465-4.680) mIU/L 03/11/19 03/11/19 Range/Units 23:25 23:25 WBC (3.8-10.6) k/uL RBC (3.80-5.40) m/uL Hgb (11.4-16.0) gm/dL Hct (34.0-46.0) % MCV (80.0-100.0) fL MCH (25.0-35.0) pg MCHC (31.0-37.0) g/dL RDW (11.5-15.5) % Plt Count (150-450) k/uL Neutrophils % % Lymphocytes % % Monocytes % % Eosinophils % % Basophils % % Neutrophils # (1.3-7.7) k/uL Lymphocytes # (1.0-4.8) k/uL Monocytes # (0-1.0) k/uL Eosinophils # (0-0.7) k/uL Basophils # (0-0.2) k/uL PT (9.0-12.0) sec INR (<1.2) APTT (22.0-30.0) sec Sodium (137-145) mmol/L Potassium (3.5-5.1) mmol/L Chloride (98-107) mmol/L Carbon Dioxide (22-30) mmol/L Anion Gap mmol/L BUN (7-17) mg/dL Creatinine (0.52-1.04) mg/dL Est GFR (CKD-EPI)AfAm (>60 ml/min/1.73 sqM) Est GFR (CKD-EPI)NonAf (>60 ml/min/1.73 sqM) Glucose (74-99) mg/dL Calcium (8.4-10.2) mg/dL Magnesium (1.6-2.3) mg/dL Total Bilirubin (0.2-1.3) mg/dL AST (14-36) U/L ALT (9-52) U/L Alkaline Phosphatase (38-126) U/L Troponin I <0.012 (0.000-0.034) ng/mL NT-Pro-B Natriuret Pep 88 pg/mL Total Protein (6.3-8.2) g/dL Albumin (3.5-5.0) g/dL TSH (0.465-4.680) mIU/L - Radiology Data Two-view x-ray of the chest is obtained. Report was reviewed in its entirety. Impression by Dr. Zambrano shows shows unremarkable chest x-ray. (Tasia Koroma) Disposition Decision to Admit Reason: Admit from [facility] Decision Date: 03/12/19 Decision Time: 01:27 <Tasia Koroma - Last Filed: 03/12/19 02:02> <Cheryl Jones - Last Filed: 03/15/19 04:24> Clinical Impression: New onset a-fib Disposition: ADMITTED IP TO THIS [facility] Condition: Serious
[2019-03-12] MEDS ORDERED: HEPARIN SOD,PORK IN 0.45% NACL 25,000 UNIT in 0.45% NACL 1 250ML.BAG IV SCH (01:15)
[2019-03-12] MEDS ORDERED: NALOXONE 0.4 MG/ML 1 ML VIAL IV PRN (02:40)
[2019-03-12 04:30] VITALS: BMI 26.3
[2019-03-12 05:48] LABS: Basophils % (A) 1 %; Eosinophils # (A) 0.1 k/uL (0-0.7); Eosinophils % (A) 2 %; HCT 38.8 % (34.0-46.0); HGB 12.5 gm/dL (11.4-16.0); Lymphocytes # (A) 1.6 k/uL (1.0-4.8); Lymphocytes % (A) 32 %; MCH 30.9 pg (25.0-35.0); MCHC 32.2 g/dL (31.0-37.0); Mean Platelet Volume 6.7; Monocytes # (A) 0.3 k/uL (0-1.0); Monocytes % (A) 7 %; Neutrophils # (A) 2.8 k/uL (1.3-7.7); Neutrophils % (A) 54 %; Platelet Count 277 k/uL (150-450); RBC 4.04 m/uL (3.80-5.40); RDW 12.5 % (11.5-15.5); WBC 5.1 k/uL (3.8-10.6)
[2019-03-12 06:18] LABS: INR 0.9 (<1.2); Partial Thromboplastin Time 49.2 sec (22.0-30.0); Prothrombin Time 9.6 sec (9.0-12.0)
[2019-03-12 09:04] VITALS: RESP 18
[2019-03-12] MEDS ORDERED: ASPIRIN 81 MG PO SCH (10:00)
[2019-03-12] MEDS ORDERED: METOPROLOL TARTRATE 25 MG TAB PO SCH (10:00)
[2019-03-12] MEDS ORDERED: IPRATROPIUM-ALBUTEROL 3 ML NEB INHALATION PRN (10:09)
--- NOTE | 2019-03-12 10:30 | P.CRDCN ---
History of Present Illness Consult date: 03/12/19 Chief complaint: Palpitations History of present illness: This is a pleasant 78-year-old female patient with a past medical history significant for coronary artery disease and prior stenting of the LAD and left circumflex, the patient does follows Dr. Pop in the office on regular basis, hypertension, and dyslipidemia, presented to the emergency room complaining of palpitations. She was in her usual state of health yesterday and after she ate dinner she started experiencing palpitations in the chest without any symptoms of dizziness or lightheadedness, or syncope. No symptoms of chest pain or chest discomfort. She presented to the emergency room where she was found to be in atrial fibrillation and subsequently she was converted to normal sinus mechanism. The atrial fibrillation is new to the patient. Since she has been in the hospital she has been maintaining normal sinus rhythm. Her heart rate has been in the 80s. She was receiving metoprolol at 25 mg by mouth twice a day at home. The EKG showed atrial fibrillation with nonspecific changes. The chest x-ray did not show any acute abnormalities. The the blood work including CBC and BMP came in to be unremarkable. I am going to increase the dose of metoprolol to 50 mg by mouth twice a day. I we will also start the patient on oral anticoagulation. I discussed with the patient that she might be able to be discharged home later on today Past Medical History Past Medical History: Asthma, Coronary Artery Disease (CAD), Chest Pain / Angina, Fibromyalgia, GERD/Reflux, Hyperlipidemia, Hypertension, Syncope Additional Past Medical History / Comment(s): Syncope twice in airplane, allergic rhinitis, UTIs, hiatal hernia. hernia repair (groin-01/2018). new onset afib (03/12/2019) History of Any Multi-Drug Resistant Organisms: None Reported Past Surgical History: Appendectomy, Heart Catheterization With Stent, Tonsillectomy, Tubal Ligation Past Anesthesia/Blood Transfusion Reactions: No Reported Reaction Additional Past Anesthesia/Blood Transfusion Reaction / Comment(s): hard time waking up the patient Date of Last Stent Placement:: 04/2014 Smoking Status: Never smoker - Past Family History Mother Family Medical History: Coronary Artery Disease (CAD), Diabetes Mellitus Additional Family Medical History / Comment(s): Pt is adopted. Father Family Medical History: Coronary Artery Disease (CAD), Diabetes Mellitus Additional Family Medical History / Comment(s): Pt is adopted. Medications and Allergies Home Medications Medication Instructions Recorded Confirmed Type Beclomethasone Dipropionate [Qvar 2 puff INHALATION RT-BID 04/17/14 03/12/19 History 80 mcg/puff] Famotidine [Pepcid] 20 mg PO BID 04/17/14 03/12/19 History Montelukast [Singulair] 10 mg PO HS 04/17/14 03/12/19 History Rosuvastatin Calcium [Crestor] 10 mg PO DAILY 04/17/14 03/12/19 History Aspirin 81 mg PO DAILY 04/18/14 03/12/19 History Metoprolol Tartrate [Lopressor] 25 mg PO BID 04/18/14 03/12/19 History Allergies Allergy/AdvReac Type Severity Reaction Status Date / Time codeine Allergy Unknown Verified 03/12/19 07:09 Milk Containing Products AdvReac Mild Wheezing Verified 03/12/19 07:09 [Dairy] Physical Exam Vitals: Vital Signs Temp Pulse Pulse Resp BP BP Pulse Ox 03/12/19 08:00 98.0 F 86 18 128/85 94 L 03/12/19 04:26 98.1 F 75 17 137/72 96 03/12/19 04:00 75 17 03/12/19 03:57 98.1 F 80 17 115/69 95 03/12/19 02:26 98.1 F 88 16 111/67 94 L 03/12/19 01:11 101 H 16 118/67 96 03/11/19 23:32 98.3 F 87 17 137/70 97 Intake and Output 03/11/19 03/12/19 03/12/19 22:59 06:59 14:59 Intake Total 77.739 Balance 77.739 Intake: IV 40 normal saline 40 Intake, IV Titration 37.739 Amount Heparin Sod,Pork in 0.45% 37.739 NaCl 25,000 unit In 0.45 % NaCl 1 250ml.bag @ 12 UNITS/KG/HR 8.709 mls/hr IV .Q24H [facility] Rx#: [id number] Other: Voiding Method Toilet Toilet # Voids 1 Weight 74.6 kg - Constitutional General appearance: no acute distress - Respiratory Respiratory: bilateral: CTA - Cardiovascular Rhythm: regular Heart sounds: normal: S1, S2 Results 03/12/19 05:25 03/11/19 23:25 Cardiac Enzymes 03/11/19 03/11/19 Range/Units 23:25 23:25 AST 18 (14-36) U/L Troponin I <0.012 (0.000-0.034) ng/mL Coagulation 03/11/19 03/12/19 Range/Units 23:25 05:25 PT 9.4 9.6 (9.0-12.0) sec APTT 21.7 L 49.2 H (22.0-30.0) sec CBC 03/11/19 03/12/19 Range/Units 23:25 05:25 WBC 6.5 5.1 (3.8-10.6) k/uL RBC 4.24 4.04 (3.80-5.40) m/uL Hgb 13.2 12.5 (11.4-16.0) gm/dL Hct 40.4 38.8 (34.0-46.0) % Plt Count 280 277 (150-450) k/uL Comprehensive Metabolic Panel 03/11/19 Range/Units 23:25 Sodium 140 (137-145) mmol/L Potassium 3.9 (3.5-5.1) mmol/L Chloride 107 (98-107) mmol/L Carbon Dioxide 24 (22-30) mmol/L BUN 26 H (7-17) mg/dL Creatinine 0.61 (0.52-1.04) mg/dL Glucose 181 H (74-99) mg/dL Calcium 9.8 (8.4-10.2) mg/dL AST 18 (14-36) U/L ALT 25 (9-52) U/L Alkaline Phosphatase 67 (38-126) U/L Total Protein 7.0 (6.3-8.2) g/dL Albumin 4.1 (3.5-5.0) g/dL Current Medications Generic Name Dose Route Start Last Admin Trade Name Freq PRN Reason Stop Dose Admin Albuterol/Ipratropium 3 ml 03/12/19 10:09 Duoneb 0.5 Mg-3 Mg/3 Ml Soln INHALATION RT-TID PRN Shortness Of Breath Or Wheezing Aspirin 81 mg 03/12/19 10:00 03/12/19 10:19 Aspirin PO 81 mg DAILY ANNE MARIE Administration Atorvastatin Calcium 20 mg 03/13/19 09:00 Lipitor PO DAILY [facility] Famotidine 20 mg 03/12/19 21:00 Pepcid PO BID [facility] Heparin Sodium (Porcine) 0 unit 03/12/19 01:11 Heparin IV PER PROTOCOL PRN Low PTT Protocol Heparin Sodium/Sodium Chloride 250 mls @ 8.709 mls/hr 03/12/19 01:15 03/12/19 06:27 25,000 unit/ Sodium Chloride IV 12 units/kg/hr .Q24H ANNE MARIE 8.709 mls/hr Titration Protocol 12 UNITS/KG/HR Insulin Aspart 0 unit 03/12/19 12:30 Novolog SQ ACHS [facility] Protocol Metoprolol Tartrate 50 mg 03/12/19 21:00 Lopressor PO BID [facility] Montelukast Sodium 10 mg 03/12/19 21:00 Singulair PO HS ANNE MARIE Naloxone HCl 0.2 mg 03/12/19 02:40 Narcan IV Q2M PRN Opioid Reversal Intake and Output 03/11/19 03/12/19 03/12/19 22:59 06:59 14:59 Intake Total 77.739 Balance 77.739 Intake: IV 40 normal saline 40 Intake, IV Titration 37.739 Amount Heparin Sod,Pork in 0.45% 37.739 NaCl 25,000 unit In 0.45 % NaCl 1 250ml.bag @ 12 UNITS/KG/HR 8.709 mls/hr IV .Q24H [facility] Rx#: [id number] Other: Voiding Method Toilet Toilet # Voids 1 Weight 74.6 kg 03/12/19 05:25 03/11/19 23:25 Assessment and Plan Assessment: Assessment #1 paroxysmal atrial fibrillation. This is a new to the patient #2 coronary artery disease and prior coronary artery vascularization #3 hypertension #4 dyslipidemia Plan #1 increase the dose of metoprolol #2 start oral anticoagulation #3 from the cardiovascular standpoint of view, she might be able to be discharged home Thank you for allowing us participate in her care
[2019-03-12] MEDS ORDERED: ATORVASTATIN 20 MG TAB PO SCH (11:53)
[2019-03-12] MEDS ORDERED: FAMOTIDINE 20 MG TAB PO SCH ×2 (12:00→21:00)
[2019-03-12] MEDS ORDERED: APIXABAN 5 MG TAB PO SCH ×2 (12:00→21:00)
--- NOTE | 2019-03-12 12:23 | P.HPIM ---
History of Present Illness H&P Date: 03/12/19 Chief Complaint: Palpitations HISTORY AND PHYSICAL AND DISCHARGE SUMMARY: This is a 78-year-old female patient of Dr. Mccormack and Dr. RITIKA Pop with past medical history of coronary artery disease with prior stenting of the LAD and left circumflex in 2013, hypertension, hyperlipidemia, macular degeneration on the right eye. Patient complains of palpitations that started after she ate pizza last evening about 920. After 1 hour they contacted EMS. She denies having any dizziness lightheadedness, chest pain. She states she has had this a little bit in the past after she has eaten high carb diet and it goes away on its own. She states she follows with Dr. RITIKA Pop on a regular basis and last August had stress test and echocardiogram done at that time. She denies history of atrial fibrillation. No fever or chills. No nausea vomiting diarrhea. Patient states that recently, Dr. Mccormack changed her Lopressor to assess and 8 but she felt it did not make any difference that she is still didn't feel well and went back to Lopressor 25 mg twice daily Patient came into [facility] emergency center for evaluation. She was afebrile, heart rate 87, blood pressure 137/70 and pulse ox 97% on room air. EKG showed atrial fibrillation with RVR at a rate of 103. CBC was within normal limits as well as electrolytes. BUN 26 and creatinine 0.61, blood sugar 181. Troponin was negative and proBNP 88. Chest x-ray was unremarkable. Patient was placed on the cardiac stepdown unit and cardiology consult requested. Patient did convert to normal sinus rhythm while in the emergency center and remains in a normal sinus rhythm. She was started on a heparin drip and echocardiogram has been ordered. Patient was seen by Dr. Shah this morning and is been started on eliquis and increased Lopressor to 50 mg twice daily and cleared for discharge home. Patient will be discharged home today in stable condition. Review of Systems All systems: negative Constitutional: Denies anorexia, Denies chills, Denies fatigue, Denies fever, Denies lethargy, Denies malaise, Denies poor appetite, Denies weakness Eyes: denies blurred vision, denies pain Ears, nose, mouth and throat: Denies dysphagia, Denies headache, Denies nasal congestion, Denies nasal discharge, Denies sore throat, Denies vertigo Cardiovascular: Reports irregular heart beat, Reports palpitations, Denies chest pain, Denies decreased exercise tolerance, Denies dyspnea on exertion, Denies edema, Denies lightheadedness, Denies shortness of breath, Denies syncope Respiratory: Denies cough, Denies cough with sputum, Denies dyspnea, Denies excessive sputum, Denies hemoptysis, Denies home oxygen, Denies wheezing Gastrointestinal: Denies abdominal pain, Denies diarrhea, Denies loss of appetite, Denies nausea, Denies vomiting Genitourinary: Denies dysuria, Denies hematuria, Denies urgency, Denies urinary frequency Musculoskeletal: Denies myalgias Integumentary: Denies pruritus, Denies rash, Denies wounds Neurological: Denies aphasia, Denies change in mentation, Denies change in speech, Denies confusion, Denies numbness, Denies seizures, Denies weakness Psychiatric: Denies anxiety, Denies depression Endocrine: Denies fatigue, Denies weight change Past Medical History Past Medical History: Asthma, Coronary Artery Disease (CAD), Chest Pain / Angina, Fibromyalgia, GERD/Reflux, Hyperlipidemia, Hypertension, Syncope Additional Past Medical History / Comment(s): Syncope twice in airplane, allergic rhinitis, UTIs, hiatal hernia. hernia repair (groin-01/2018). new onset afib (03/12/2019) History of Any Multi-Drug Resistant Organisms: None Reported Past Surgical History: Appendectomy, Heart Catheterization With Stent, Tonsillectomy, Tubal Ligation Past Anesthesia/Blood Transfusion Reactions: No Reported Reaction Additional Past Anesthesia/Blood Transfusion Reaction / Comment(s): hard time waking up the patient Date of Last Stent Placement:: 04/2014 Smoking Status: Never smoker Additional Past Alcohol Use History / Comment(s): Patient is a lifelong nonsmoker, no marijuana or illicit drug use, occasional wine. Patient lives at home with her . - Past Family History Mother Family Medical History: Coronary Artery Disease (CAD), Diabetes Mellitus Additional Family Medical History / Comment(s): Pt is adopted. Father Family Medical History: Coronary Artery Disease (CAD), Diabetes Mellitus Additional Family Medical History / Comment(s): Pt is adopted. Medications and Allergies Home Medications Medication Instructions Recorded Confirmed Type Beclomethasone Dipropionate [Qvar 2 puff INHALATION RT-BID 04/17/14 03/12/19 History 80 mcg/puff] Famotidine [Pepcid] 20 mg PO BID 04/17/14 03/12/19 History Montelukast [Singulair] 10 mg PO HS 04/17/14 03/12/19 History Rosuvastatin Calcium [Crestor] 10 mg PO DAILY 04/17/14 03/12/19 History Aspirin 81 mg PO DAILY 04/18/14 03/12/19 History Apixaban [Eliquis] 5 mg PO BID #60 tab 03/12/19 Rx Metoprolol Tartrate [Lopressor] 50 mg PO BID #60 tab 03/12/19 Rx Allergies Allergy/AdvReac Type Severity Reaction Status Date / Time codeine Allergy Unknown Verified 03/12/19 07:09 Milk Containing Products AdvReac Mild Wheezing Verified 03/12/19 07:09 [Dairy] Physical Exam Vitals: Vital Signs Temp Pulse Pulse Resp BP BP Pulse Ox 03/12/19 08:00 98.0 F 86 18 128/85 94 L 03/12/19 04:26 98.1 F 75 17 137/72 96 03/12/19 04:00 75 17 03/12/19 03:57 98.1 F 80 17 115/69 95 03/12/19 02:26 98.1 F 88 16 111/67 94 L 03/12/19 01:11 101 H 16 118/67 96 03/11/19 23:32 98.3 F 87 17 137/70 97 Intake and Output 03/11/19 03/12/19 03/12/19 22:59 06:59 14:59 Intake Total 77.739 Balance 77.739 Intake: IV 40 normal saline 40 Intake, IV Titration 37.739 Amount Heparin Sod,Pork in 0.45% 37.739 NaCl 25,000 unit In 0.45 % NaCl 1 250ml.bag @ 12 UNITS/KG/HR 8.709 mls/hr IV .Q24H [facility] Rx#: [id number] Other: Voiding Method Toilet Toilet # Voids 1 Weight 74.6 kg Gen: This is a 78-year-old female. Patient is resting in bed and appears comfortable and in no acute distress. HEENT: Head is atraumatic, normocephalic. Pupils equal, round. Sclerae is anicteric. NECK: Supple. No JVD. No lymphadenopathy. No thyromegaly. LUNGS: Clear to auscultation. No wheezes or rhonchi. No intercostal retractions. HEART: Regular rate and rhythm. No murmur. ABDOMEN: Soft. Bowel sounds are present. No masses. No tenderness. EXTREMITIES: No pedal edema. No calf tenderness. NEUROLOGICAL: Patient is awake, alert and oriented x3. Cranial nerves 2 through 12 are grossly intact. Results CBC & Chem 7: 03/12/19 05:25 03/11/19 23:25 Labs: Abnormal Lab Results - Last 24 Hours (Table) 03/11/19 03/11/19 03/12/19 Range/Units 23:25 23:25 05:25 APTT 21.7 L 49.2 H (22.0-30.0) sec BUN 26 H (7-17) mg/dL Glucose 181 H (74-99) mg/dL Thrombosis Risk Factor Assmnt - DVT/VTE Prophylaxis DVT/VTE Prophylaxis: Pharmacologic Prophylaxis ordered - Choose All That Apply Any of the Below Risk Factors Present?: No Each Risk Factor Represents 3 Points: Age 75 years or older Thrombosis Risk Factor Assessment Total Risk Factor Score: 3 Thrombosis Risk Factor Assessment Level: Moderate Risk Assessment and Plan Plan: 1. New onset atrial fibrillation, paroxysmal atrial fibrillation. Patient was started on a heparin drip, cardiology consult. Patient will be resumed on her Lopressor 25 mg twice daily and increase by cardiology to 50 mg twice daily. 2. Hypertension. Continue Lopressor. 3. History of coronary artery disease status post stent in the LAD and left circumflex in 2013. Continue aspirin 81 mg daily, Crestor 10 mg daily, Lopressor 25 mg twice daily. 4. Gastroesophageal reflux disease. Continue Pepcid. 5. Mild persistent asthma. DuoNeb treatments as needed. Patient is on Qvar, continue Singulair. 6. DVT prophylaxis. Heparin drip. 7. Macular degeneration right eye, stable. 8. Hyperlipidemia. Continue Crestor. Patient placed as an observation status. Discharge plan: Return home today. Discharge Medication List Beclomethasone Dipropionate [Qvar 80 mcg/puff] 2 puff INHALATION RT-BID 04/17/14 [History] Famotidine [Pepcid] 20 mg PO BID 04/17/14 [History] Montelukast [Singulair] 10 mg PO HS 04/17/14 [History] Rosuvastatin Calcium [Crestor] 10 mg PO DAILY 04/17/14 [History] Aspirin 81 mg PO DAILY 04/18/14 [History] Apixaban [Eliquis] 5 mg PO BID #60 tab 03/12/19 [Rx] Metoprolol Tartrate [Lopressor] 50 mg PO BID #60 tab 03/12/19 [Rx] Impression and plan of care have been directed as dictated by the signing physician. Triny Martinez nurse practitioner acting as scribe for signing physician.
[2019-03-12] MEDS ORDERED: INSULIN ASPART (NovoLOG) 100 UNIT/ML VIAL SQ SCH (12:30)
[2019-03-12 14:45] VITALS: BP 120/76; PULSE 74; TEMP 98.3
[2019-03-12] MEDS ORDERED: MONTELUKAST 10 MG TAB PO SCH (21:00)
[2019-03-12] MEDS ORDERED: METOPROLOL TARTRATE 50 MG TAB PO SCH (21:00)
[2019-03-13] MEDS ORDERED: ATORVASTATIN 20 MG TAB PO SCH (09:00)
== END 2019-03-12 14:49 | disposition home or self-care (01) ==
LOC: EC 23:15 → 3SCARD 03-12 02:43
PROVIDERS: ADMIT Internal Medicine; ATTEND Internal Medicine
DX: I48.0 Paroxysmal atrial fibrillation (principal); I25.10 Atherosclerotic heart disease of native coronary artery without angina pectoris; E78.5 Hyperlipidemia, unspecified; J30.9 Allergic rhinitis, unspecified; K44.9 Diaphragmatic hernia without obstruction or gangrene; I10 Essential (primary) hypertension; K21.9 Gastro-esophageal reflux disease without esophagitis; M79.7 Fibromyalgia; J45.30 Mild persistent asthma, uncomplicated; Z87.440 Personal history of urinary (tract) infections; H35.30 Unspecified macular degeneration; Z79.82 Long term (current) use of aspirin; Z79.51 Long term (current) use of inhaled steroids; Z79.899 Other long term (current) drug therapy; Z79.01 Long term (current) use of anticoagulants; Z98.51 Tubal ligation status; Z95.5 Presence of coronary angioplasty implant and graft; Z88.5 Allergy status to narcotic agent; Z91.011 Allergy to milk products; Z83.3 Family history of diabetes mellitus; Z82.49 Family history of ischemic heart disease and other diseases of the circulatory system
CPT/HCPCS: 36415; 71046; 80053; 83735; 83880; 84443; 84484; 85025; 85610; 85730; 93005; 96365; 96366; 96376; 99285

== ENCOUNTER 2019-05-05 19:02 | Observation (INO) | payer MEDICARE, BC ==
--- NOTE | 2019-05-05 19:30 | ED ---
Chest Pain HPI - General Chief Complaint: Chest Pain Stated Complaint: CHEST PAIN Time Seen by Provider: 05/05/19 19:23 Source: patient Mode of arrival: wheelchair Limitations: no limitations - History of Present Illness Initial Comments: This patient is a 78-year-old woman who presents to be evaluated for chest pain that started approximately one hour ago, right after she had finished eating and had gotten up to walk from restaurant. She does have history of previous coronary artery disease including having stenting of the LAD and left circumflex on 04/18/2014. She follows with Dr. Pop from cardiology. The patient states that she also had a similar episode of discomfort last evening after eating. The patient indicates that the pain has now resolved. She describes as feeling like a "gripping" sensation. She did not notice any worsening or relieving factors. She had some accompanying nausea but no vomiting. No other coming symptoms. MD Complaint: chest pain Onset/Timin -: hour(s) Onset: after eating Pain Location: substernal Pain Radiation: neck Severity: moderate Quality: tightness ("Like a gripping ") Consistency: now resolved Improves With: nothing Anginal Symptoms: nausea Treatments Prior to Arrival: none - Related Data Home Medications Medication Instructions Recorded Confirmed Beclomethasone Dipropionate [Qvar 2 puff INHALATION RT-BID 04/17/14 05/05/19 80 mcg/puff] Famotidine [Pepcid] 20 mg PO BID 04/17/14 05/05/19 Montelukast [Singulair] 10 mg PO HS 04/17/14 05/05/19 Rosuvastatin Calcium [Crestor] 10 mg PO DAILY 04/17/14 05/05/19 Clopidogrel Bisulfate [Plavix] 75 mg PO Q48H 05/05/19 05/05/19 Previous Rx's Medication Instructions Recorded Apixaban [Eliquis] 5 mg PO BID #60 tab 03/12/19 Metoprolol Tartrate [Lopressor] 50 mg PO BID #60 tab 03/12/19 Allergies Allergy/AdvReac Type Severity Reaction Status Date / Time Milk Containing Products Allergy Mild Wheezing Verified 05/05/19 19:45 [Dairy] codeine AdvReac Nausea & Verified 05/05/19 19:45 Vomiting Review of Systems ROS Statement: Those systems with pertinent positive or pertinent negative responses have been documented in the HPI. ROS Other: All systems not noted in ROS Statement are negative. Constitutional: Denies: fever, chills Respiratory: Denies: cough, dyspnea Cardiovascular: Reports: chest pain. Denies: palpitations, edema, syncope Gastrointestinal: Reports: nausea. Denies: abdominal pain, vomiting, diarrhea Genitourinary: Denies: dysuria, hematuria Musculoskeletal: Denies: back pain Skin: Denies: rash Neurological: Denies: headache, weakness, numbness Psychiatric: Denies: anxiety EKG Findings - EKG Comments: EKG Findings:: Possible old anteroseptal infarct. Low voltage QRS complex. - EKG Results: EKG: interpreted by YOSEPHD, sinus rhythm, normal axis EKG shows: tachycardia (Rate 102 BPM) Past Medical History Past Medical History: Atrial Fibrillation, Asthma, Coronary Artery Disease (CAD), Chest Pain / Angina, Fibromyalgia, GERD/Reflux, Hyperlipidemia, Hypertension, Syncope Additional Past Medical History / Comment(s): Syncope History of Any Multi-Drug Resistant Organisms: None Reported Past Surgical History: Appendectomy, Heart Catheterization With Stent, Hernia Repair, Tonsillectomy, Tubal Ligation Past Anesthesia/Blood Transfusion Reactions: No Reported Reaction Additional Past Anesthesia/Blood Transfusion Reaction / Comment(s): hard time waking up the patient Date of Last Stent Placement:: 04/2014 Past Psychological History: No Psychological Hx Reported Smoking Status: Never smoker Past Alcohol Use History: None Reported Past Drug Use History: None Reported - Past Family History Mother Family Medical History: Coronary Artery Disease (CAD), Diabetes Mellitus Additional Family Medical History / Comment(s): Pt is adopted. Father Family Medical History: Coronary Artery Disease (CAD), Diabetes Mellitus Additional Family Medical History / Comment(s): Pt is adopted. General Exam Limitations: no limitations General appearance: alert, in no apparent distress Head exam: Present: atraumatic, normocephalic Eye exam: Present: normal appearance. Absent: scleral icterus, conjunctival injection ENT exam: Present: normal oropharynx Neck exam: Present: normal inspection Respiratory exam: Present: normal lung sounds bilaterally. Absent: respiratory distress, wheezes, rales, rhonchi, stridor, chest wall tenderness Cardiovascular Exam: Present: regular rate, normal rhythm, normal heart sounds. Absent: systolic murmur, diastolic murmur, rubs, gallop GI/Abdominal exam: Present: soft. Absent: distended, tenderness, guarding, rebound, rigid, mass Extremities exam: Present: normal inspection, normal capillary refill. Absent: pedal edema, calf tenderness Back exam: Present: normal inspection. Absent: CVA tenderness (R), CVA tender ness (L) Neurological exam: Present: alert Skin exam: Present: warm, dry, intact, normal color. Absent: rash Course Vital Signs 05/05/19 05/05/19 05/05/19 19:06 19:43 20:18 Temperature 98.7 F Pulse Rate 104 H 102 H 101 H Respiratory 18 17 18 Rate Blood Pressure 147/78 133/73 137/77 O2 Sat by Pulse 96 95 97 Oximetry 05/05/19 20:53 Temperature 98.3 F Pulse Rate 100 Respiratory 18 Rate Blood Pressure 133/72 O2 Sat by Pulse 94 L Oximetry Disposition Clinical Impression: Chest pain Disposition: [facility]ITT[facility] Condition: Good Instructions (If sedation given, give patient instructions): Chest Pain (ED) Is patient prescribed a controlled substance at d/c from ED?: No Referrals: Cedric Mccormack MD [Primary Care Provider] - 1-2 days
[2019-05-05] MEDS ORDERED: ASPIRIN 81 MG PO STA (20:03)
[2019-05-05 20:10] LABS: Basophils % (A) 1 %; Eosinophils # (A) 0.2 k/uL (0-0.7); Eosinophils % (A) 3 %; HCT 43.6 % (34.0-46.0); HGB 13.9 gm/dL (11.4-16.0); Lymphocytes # (A) 1.7 k/uL (1.0-4.8); Lymphocytes % (A) 29 %; MCH 30.5 pg (25.0-35.0); MCHC 31.8 g/dL (31.0-37.0); MCV 96.1 fL (80.0-100.0); Mean Platelet Volume 7.1; Monocytes # (A) 0.4 k/uL (0-1.0); Monocytes % (A) 7 %; Neutrophils # (A) 3.5 k/uL (1.3-7.7); Neutrophils % (A) 58 %; Platelet Count 300 k/uL (150-450); RBC 4.54 m/uL (3.80-5.40); RDW 12.6 % (11.5-15.5)
--- NOTE | 2019-05-05 20:17 | XR ---
EXAMINATION: XR chest 1V portable DATE AND TIME: 05/05/2019 7:48 PM CLINICAL INDICATION: PHH; chest pain TECHNIQUE: AP upright portable COMPARISON: 03/12/2019 FINDINGS: The lungs are clear. The pleural spaces are negative. The cardiac silhouette is borderline enlarged. Tortuous thoracic aorta noted. The skeletal structures and soft tissues are negative for acute findings. IMPRESSION: NO ACUTE PROCESS.
[2019-05-05 20:19] LABS: ALT 19 U/L (9-52); AST 27 U/L (14-36); African American GFR (CKD) >90 (>60 ml/min/1.73 sqM); Albumin 4.5 g/dL (3.5-5.0); Alkaline Phosphatase 61 U/L (38-126); Amylase 51 U/L (30-110); Anion Gap 11 mmol/L; Blood Urea Nitrogen 16 mg/dL (7-17); Calcium 9.7 mg/dL (8.4-10.2); Carbon Dioxide 28 mmol/L (22-30); Chloride 99 mmol/L (98-107); Glucose 169 mg/dL (74-99); Lipase 209 U/L (23-300); Magnesium 1.9 mg/dL (1.6-2.3); Sodium 138 mmol/L (137-145); Total Bilirubin 0.5 mg/dL (0.2-1.3); Total Protein 7.6 g/dL (6.3-8.2)
[2019-05-05 21:02] LABS: D-Dimer 0.22 mg/L FEU (<0.60); INR 0.9 (<1.2); Partial Thromboplastin Time 22.5 sec (22.0-30.0); Prothrombin Time 9.8 sec (9.0-12.0)
[2019-05-05 21:04] LABS: Appearance,Urine Clear (Clear); Bilirubin,Urine Negative (Negative); Blood,Urine Negative (Negative); Color,Urine Yellow; Glucose,Urine (UA) Negative (Negative); Ketones,Urine Negative (Negative); Leukocyte Esterase,Urine Negative (Negative); Nitrite,Urine Negative (Negative); PH, Urine 6.5 (5.0-8.0); Protein,Urine Negative (Negative); Specific Gravity,Urine 1.011 (1.001-1.035); Urobilinogen,Urine <2.0 mg/dL (<2.0)
[2019-05-05] MEDS ORDERED: NITROGLYCERIN SL TABS 0.4 MG TAB SUBLINGUAL PRN (21:13)
[2019-05-05] MEDS: NITROGLYCERIN OINT 1 INCH/GM PACKET TOPICAL SCH (23:32)
[2019-05-05] MEDS ORDERED: CLOPIDOGREL 75 MG TAB PO SCH (23:45)
[2019-05-06] MEDS ORDERED: MONTELUKAST 10 MG TAB PO SCH
[2019-05-06] MEDS: FAMOTIDINE 20 MG TAB PO SCH ×2 (00:15→09:06)
[2019-05-06] MEDS: APIXABAN 5 MG TAB PO SCH ×2 (00:15→09:06)
[2019-05-06 03:26] LABS: Cholesterol 178 mg/dL (<200); HDL Cholesterol 47 mg/dL (40-60); LDL Cholesterol,Calculated 103 mg/dL (0-99); Triglycerides 139 mg/dL (<150)
[2019-05-06] MEDS ORDERED: ONDANSETRON 4 MG/2 ML VIAL IVP PRN (05:11)
[2019-05-06] MEDS ORDERED: NITROGLYCERIN OINT 1 INCH/GM PACKET TOPICAL SCH (06:00)
[2019-05-06] MEDS: NITROGLYCERIN OINT 1 INCH/GM PACKET TOPICAL SCH (06:05)
[2019-05-06] MEDS ORDERED: PANTOPRAZOLE 40 MG TABLET PO SCH (07:45)
[2019-05-06] MEDS ORDERED: FLUTICASONE 110 MCG INHALER INHALATION SCH (08:00)
[2019-05-06] MEDS ORDERED: HEPARIN SODIUM,PORCINE 5,000 UNIT/ML 1 ML VIAL SQ SCH (09:00)
[2019-05-06] MEDS ORDERED: CLOPIDOGREL 75 MG TAB PO SCH (09:00)
[2019-05-06] MEDS ORDERED: METOPROLOL TARTRATE 50 MG TAB PO SCH (09:00)
[2019-05-06] MEDS ORDERED: ASPIRIN 325 MG TAB PO SCH (09:00)
[2019-05-06] MEDS ORDERED: ATORVASTATIN 20 MG TAB PO SCH (09:00)
--- NOTE | 2019-05-06 10:56 | CONS ---
TATYANA Pena is a 78-year-old lady who is well known to me and I see her in the office. She has history of previous stenting of LAD performed in 2013. Since then, she has done fairly well. She has underlying bronchial asthma. She also has recent diagnosis of paroxysmal atrial fibrillation in March of this year. She has been on a combination of Eliquis 5 mg b.i.d., Plavix 75 mg every other day. She has been doing fairly well. She went to dinner with her , walked out of the restaurant, felt a sensation of a gripping feeling in the lower chest that seemed to occur after eating. She had a similar feeling the day before after she ate something. This seemed to persist and she came into the hospital. She has no further pain. She is resting comfortably. Two sets of troponins are normal. EKG is unremarkable. The quality of pain seems atypical. She is also known to have hiatal hernia with reflux type symptoms and does have discomfort in the epigastric and chest area with eating. She feels her symptoms are quite similar at this time. She is asymptomatic, resting comfortably. PAST MEDICAL HISTORY: 1. CAD with LAD stenting. 2. Hypertension. 3. Bronchial asthma. 4. Gastroesophageal reflux disease. 5. Hypertension. 6. History of atrial fibrillation recently. MEDICATIONS: At home include Crestor 10 mg daily, Plavix 75 mg every other day, Pepcid 20 mg b.i.d., Singulair 10 mg daily, inhalers, Lopressor 50 mg b.i.d. and Eliquis 5 mg b.i.d. EXAMINATION: Blood pressure is 118/70, pulse rate is 70 per minute. HEENT unremarkable. Fundus was not examined by me. Neck is supple. No JVD. I do not hear a carotid bruit. There is no thyromegaly. Heart exam reveals S1, S2 heard normally without a rub murmur or gallop. Lungs are clear. Abdomen is soft, nontender. Lower extremities reveal normal pulses. No edema. Central nervous system is normal. EKG revealed sinus mechanism, no acute changes. This patient apparently had a stress test as recently as August 2018 within the last 1 year, which was negative and I will verify this. IMPRESSION: 1. Atypical pain, probably reflux type symptoms. 2. History of coronary artery disease . 3. Paroxysmal atrial fibrillation, maintaining sinus rhythm. 4. Hypertension. 5. Bronchial asthma. RECOMMENDATIONS: I am recommending that we increase activity, have her walk up and down the hallways briskly and also perform an additional troponin and if these are normal, she can be discharged and I will see her in the office in 1-2 weeks. I discussed my thoughts in detail with the patient. Thank you very much for the consult. LARS / IJN: [id number] /
[2019-05-06 11:21] VITALS: BP 102/68; PULSE 70; RESP 18; TEMP 98.1
--- NOTE | 2019-05-06 20:57 | P.HPIM ---
History of Present Illness H&P Date: 05/06/19 Chief Complaint: Chest pain This will serve both in H&P and discharge summary This is a 78-year-old female patient of Dr. Mccormack and Dr. RITIKA Pop with past medical history of coronary artery disease with prior stenting of the LAD and left circumflex in 2013, hypertension, hyperlipidemia, macular degeneration on the right eye. Her last admission was in March 2019, yanna she presented with A. fib with RVR, she is on eliquis and Lopressor, no presenting with chest pain emergency room, for the past 2 days, related to food intake, not with exertion, epigastric in location, postprandial. Patient denies any aspirated events, no previous EGD in the past however she does have hiatal hernia, patient denies any melena hematochezia, cardiology is consulted during this admission . Patient came into [facility] emergency center for evaluation., EKG showed sinus tachycardia heart rate 102, cannot rule out anteroseptal infarct age undetermined, no QRS, cardiology has seen the patient, with 3 negative troponins, patient presented with atypical chest pain, suspect GERD against achalasia, esophagram was discussed with done as an outpatient, patient wants to wait for the test prior to consultation to Dr. Ricardo gastroenterology. Patient is to see Dr. Mccormack PCP, keep her appointment with cardiology post discharge Review of Systems Constitutional: Reports as per HPI, Denies anorexia, Denies chills, Denies chronic headaches, Denies chronic pain, Denies daytime sleepiness, Denies fatigue, Denies fever, Denies lethargy, Denies malaise, Denies night sweats, Denies poor appetite, Denies sweats, Denies weakness, Denies weight gain, Denies weight loss Ears, nose, mouth and throat: Reports as per HPI, Denies ant. neck pain, Denies bleeding gums, Denies dental pain, Denies dysphagia, Denies epistaxis, Denies headache, Denies hoarseness, Denies mouth pain, Denies nasal congestion, Denies nasal discharge, Denies neck fullness/pressure, Denies neck lump, Denies nose pain, Denies odynophagia, Denies post-nasal drip, Denies sinus pain, Denies sinus pressure, Denies swelling in mouth, Denies swelling in throat, Denies sore throat, Denies vertigo, Denies voice changes Cardiovascular: Reports as per HPI, Denies chest pain, Denies claudication, Denies decreased exercise tolerance, Denies dyspnea on exertion, Denies edema, Denies high blood pressure, Denies irregular heart beat, Denies leg edema, Denies lightheadedness, Denies orthopnea, Denies palpitations, Denies paroxysmal nocturnal dyspnea, Denies phlebitis, Denies rapid heart beat, Denies shortness of breath, Denies syncope Respiratory: Reports as per HPI, Denies congestion, Denies cough, Denies cough with sputum, Denies dyspnea, Denies excessive sputum, Denies hemoptysis, Denies home oxygen, Denies pain, Denies pain on inspiration, Denies pleurisy, Denies respiratory infections, Denies sleep apnea, Denies snoring, Denies wheezing Gastrointestinal: Reports as per HPI, Reports bloating, Reports dyspepsia, Reports indigestion, Denies abdominal pain, Denies belching, Denies BRBPR, Denies change in bowel habits, Denies coffee ground emesis, Denies constipation, Denies diarrhea, Denies early satiety, Denies excessive gas, Denies heartburn, Denies hematemesis, Denies hematochezia, Denies jaundice, Denies lactose intolerance, Denies loss of appetite, Denies melena, Denies nausea, Denies vomiting Genitourinary: Reports as per HPI, Denies abnormal vaginal bleeding, Denies decreased libido, Denies difficulty conceiving, Denies difficulty voiding, Denies dysmenorrhea, Denies dyspareunia, Denies dysuria, Denies flank pain, Denies genital sores, Denies hematuria, Denies hot flashes, Denies incomplete emptying, Denies kidney stones, Denies menorrhagia, Denies mixed incontinence, Denies nocturia, Denies pelvic pain, Denies post void dribbling, Denies , Denies prolapse symptoms, Denies stress incontinence, Denies urge incontinence, Denies urgency, Denies urinary frequency, Denies vaginal discharge, Denies vaginal dryness, Denies vaginal itching, Denies vaginal odor Menstruation: Reports as per HPI, Denies amenorrhea, Denies amenorrhea on BC, Denies currently menstrual, Denies cycle < 21 days, Denies cycle > 35 days, Denies cycle variable, Denies menses 1-7 days, Denies menses 8 or > days, Denies menses variable, Denies period heavy, Denies period light, Denies period normal, Denies period spotting, Denies post hysterectomy, Denies postmenopausal, Denies premenarcheal Musculoskeletal: Reports as per HPI Integumentary: Reports as per HPI, Denies acne, Denies boils, Denies brittle nails, Denies change in hair/nails, Denies color changes, Denies darkening of skin, Denies depigmentation, Denies dryness, Denies foot/leg ulcers, Denies growths, Denies hirsutism, Denies lesions, Denies onychomycosis, Denies pruritus, Denies rash, Denies sores, Denies striae, Denies unusual bruising, Denies wounds Neurological: Reports as per HPI, Denies aphasia, Denies ataxia, Denies balance difficulties, Denies burning pain, Denies change in mentation, Denies change in smell/taste, Denies change in speech, Denies confusion, Denies convulsions, Denies double vision, Denies gait dysfunction, Denies head injury, Denies headaches, Denies hearing difficulties, Denies lack of coordination, Denies loss of vision, Denies memory loss, Denies migraines, Denies motor disturbance, Denies numbness, Denies paralysis, Denies paresthesias, Denies seizures, Denies sensory deficit, Denies spasticity, Denies syncope, Denies tic, Denies tingling, Denies transient paralysis, Denies tremors, Denies vertigo, Denies weakness, Denies visual changes Psychiatric: Reports as per HPI Endocrine: Reports as per HPI Hematologic/Lymphatic: Reports as per HPI Allergic/Immunologic: Reports as per HPI Past Medical History Past Medical History: Atrial Fibrillation, Asthma, Coronary Artery Disease (CAD), Chest Pain / Angina, Fibromyalgia, GERD/Reflux, Hyperlipidemia, Hypertension, Syncope Additional Past Medical History / Comment(s): Syncope, hiatal hernia History of Any Multi-Drug Resistant Organisms: None Reported Past Surgical History: Appendectomy, Heart Catheterization With Stent, Hernia Repair, Tonsillectomy, Tubal Ligation Past Anesthesia/Blood Transfusion Reactions: No Reported Reaction Additional Past Anesthesia/Blood Transfusion Reaction / Comment(s): hard time waking up the patient Date of Last Stent Placement:: 04/2014 Past Psychological History: No Psychological Hx Reported Additional Psychological History / Comment(s): Pt resides with her spouse. She is independent. Smoking Status: Never smoker Past Alcohol Use History: None Reported Additional Past Alcohol Use History / Comment(s): Patient is a lifelong nonsmoker, no marijuana or illicit drug use, occasional wine. Patient lives at home with her . Past Drug Use History: None Reported - Past Family History Mother Family Medical History: Coronary Artery Disease (CAD), Diabetes Mellitus Additional Family Medical History / Comment(s): Pt is adopted. Father Family Medical History: Coronary Artery Disease (CAD), Diabetes Mellitus Additional Family Medical History / Comment(s): Pt is adopted. Medications and Allergies Home Medications Medication Instructions Recorded Confirmed Type Beclomethasone Dipropionate [Qvar 2 puff INHALATION RT-BID 04/17/14 05/05/19 History 80 mcg/puff] Famotidine [Pepcid] 20 mg PO BID 04/17/14 05/05/19 History Montelukast [Singulair] 10 mg PO HS 04/17/14 05/05/19 History Rosuvastatin Calcium [Crestor] 10 mg PO DAILY 04/17/14 05/05/19 History Apixaban [Eliquis] 5 mg PO BID #60 tab 03/12/19 05/05/19 Rx Metoprolol Tartrate [Lopressor] 50 mg PO BID #60 tab 03/12/19 05/05/19 Rx Clopidogrel Bisulfate [Plavix] 75 mg PO Q48H 05/05/19 05/05/19 History Pantoprazole Sodium [Protonix] 40 mg PO DAILY #30 tablet. 05/06/19 Rx Allergies Allergy/AdvReac Type Severity Reaction Status Date / Time Milk Containing Products Allergy Mild Wheezing Verified 05/05/19 19:45 [Dairy] codeine AdvReac Nausea & Verified 05/05/19 19:45 Vomiting Physical Exam Vitals: Vital Signs Temp Pulse Pulse Resp BP BP Pulse Ox 05/06/19 11:19 98.1 F 70 18 102/68 94 L 05/06/19 10:04 98 05/06/19 08:07 97.7 F 77 123/77 94 L 05/06/19 07:20 97.8 F 98 81 H 120/72 99 05/06/19 05:26 74 18 137/89 98 05/06/19 04:16 97.7 F 67 17 116/59 98 05/06/19 03:22 98 05/05/19 23:27 98.5 F 91 18 121/83 93 L 05/05/19 22:36 97.7 F 101 H 18 127/74 95 05/05/19 20:53 98.3 F 100 18 133/72 94 L 05/05/19 20:18 101 H 18 137/77 97 05/05/19 19:43 102 H 17 133/73 95 05/05/19 19:06 98.7 F 104 H 18 147/78 96 Intake and Output 05/05/19 05/06/19 05/06/19 22:59 06:59 14:59 Intake Total 480 Balance 480 Intake: Oral 480 Other: Voiding Method Toilet # Voids 2 Weight 72.121 kg - Constitutional General appearance: average body habitus, cooperative, no acute distress - EENT Eyes: EOMI, PERRLA, dentition normal, normal appearance ENT: NA/AT, normal oropharynx - Neck Neck: normal ROM - Respiratory Respiratory: bilateral: CTA, negative: diminished, dullness - Cardiovascular Rhythm: regular Heart sounds: normal: S1, S2 Abnormal Heart Sounds: no systolic murmur, no diastolic murmur, no rub, no S3 Gallop, no S4 Gallop, no click, no other - Gastrointestinal General gastrointestinal: normal bowel sounds, soft - Integumentary Integumentary: decreased turgor, normal - Neurologic Neurologic: CNII-XII intact - Musculoskeletal Musculoskeletal: gait normal, strength equal bilaterally - Psychiatric Psychiatric: A&O x's 3, appropriate affect, intact judgment & insight Results CBC & Chem 7: 05/05/19 19:46 05/05/19 19:46 Labs: Abnormal Lab Results - Last 24 Hours (Table) 05/05/19 05/06/19 Range/Units 19:46 02:48 Creatinine 0.51 L (0.52-1.04) mg/dL Glucose 169 H (74-99) mg/dL LDL Cholesterol, Calc 103 H (0-99) mg/dL Laboratory Results WBC 6.0 k/uL (3.8-10.6) 05/05/19 19:46 RBC 4.54 m/uL (3.80-5.40) 05/05/19 19:46 Hgb 13.9 gm/dL (11.4-16.0) 05/05/19 19:46 Hct 43.6 % (34.0-46.0) 05/05/19 19:46 MCV 96.1 fL (80.0-100.0) 05/05/19 19:46 MCH 30.5 pg (25.0-35.0) 05/05/19 19:46 MCHC 31.8 g/dL (31.0-37.0) 05/05/19 19:46 RDW 12.6 % (11.5-15.5) 05/05/19 19:46 Plt Count 300 k/uL (150-450) 05/05/19 19:46 Neutrophils % 58 % 05/05/19 19:46 Lymphocytes % 29 % 05/05/19 19:46 Monocytes % 7 % 05/05/19 19:46 Eosinophils % 3 % 05/05/19 19:46 Basophils % 1 % 05/05/19 19:46 Neutrophils # 3.5 k/uL (1.3-7.7) 05/05/19 19:46 Lymphocytes # 1.7 k/uL (1.0-4.8) 05/05/19 19:46 Monocytes # 0.4 k/uL (0-1.0) 05/05/19 19:46 Eosinophils # 0.2 k/uL (0-0.7) 05/05/19 19:46 Basophils # 0.0 k/uL (0-0.2) 05/05/19 19:46 PT 9.8 sec (9.0-12.0) 05/05/19 19:46 INR 0.9 (<1.2) 05/05/19 19:46 APTT 22.5 sec (22.0-30.0) 05/05/19 19:46 D-Dimer 0.22 mg/L FEU (<0.60) 05/05/19 19:46 Sodium 138 mmol/L (137-145) 05/05/19 19:46 Potassium 4.0 mmol/L (3.5-5.1) 05/05/19 19:46 Chloride 99 mmol/L (98-107) 05/05/19 19:46 Carbon Dioxide 28 mmol/L (22-30) 05/05/19 19:46 Anion Gap 11 mmol/L 05/05/19 19:46 BUN 16 mg/dL (7-17) 05/05/19 19:46 Creatinine 0.51 mg/dL (0.52-1.04) L 05/05/19 19:46 Est GFR (CKD-EPI)AfAm >90 (>60 ml/min/1.73 sqM) 05/05/19 19:46 Est GFR (CKD-EPI)NonAf >90 (>60 ml/min/1.73 sqM) 05/05/19 19:46 Glucose 169 mg/dL (74-99) H 05/05/19 19:46 Plasma Lactic Acid Samir 1.9 mmol/L (0.7-2.0) 05/05/19 19:46 Calcium 9.7 mg/dL (8.4-10.2) 05/05/19 19:46 Magnesium 1.9 mg/dL (1.6-2.3) 05/05/19 19:46 Total Bilirubin 0.5 mg/dL (0.2-1.3) 05/05/19 19:46 AST 27 U/L (14-36) 05/05/19 19:46 ALT 19 U/L (9-52) 05/05/19 19:46 Alkaline Phosphatase 61 U/L (38-126) 05/05/19 19:46 Troponin I <0.012 ng/mL (0.000-0.034) 05/06/19 07:30 NT-Pro-B Natriuret Pep 89 pg/mL 05/05/19 19:46 Total Protein 7.6 g/dL (6.3-8.2) 05/05/19 19:46 Albumin 4.5 g/dL (3.5-5.0) 05/05/19 19:46 Triglycerides 139 mg/dL (<150) 05/06/19 02:48 Cholesterol 178 mg/dL (<200) 05/06/19 02:48 LDL Cholesterol, Calc 103 mg/dL (0-99) H 05/06/19 02:48 HDL Cholesterol 47 mg/dL (40-60) 05/06/19 02:48 Amylase 51 U/L (30-110) 06/28/19 19:46 Lipase 209 U/L (23-300) 05/05/19 19:46 Urine Color Yellow 05/05/19 20:40 Urine Appearance Clear (Clear) 05/05/19 20:40 Urine pH 6.5 (5.0-8.0) 05/05/19 20:40 Ur Specific [place] 1.011 (1.001-1.035) 05/05/19 20:40 Urine Protein Negative (Negative) 05/05/19 20:40 Urine Glucose (UA) Negative (Negative) 05/05/19 20:40 Urine Ketones Negative (Negative) 05/05/19 20:40 Urine Blood Negative (Negative) 05/05/19 20:40 Urine Nitrite Negative (Negative) 05/05/19 20:40 Urine Bilirubin Negative (Negative) 05/05/19 20:40 Urine Urobilinogen <2.0 mg/dL (<2.0) 05/05/19 20:40 Ur Leukocyte Esterase Negative (Negative) 05/05/19 20:40 Assessment and Plan Plan: 1. Atypical chest pain, with postprandial abdominal pain and dysphagia, patient would need esophagram, scheduled to be done as an outpatient, we've offered her to see Dr. Ricardo gastrology, patient wanted to wait on this consultation, she also has a gallbladder present, and was worked up in the past by Dr. Mccormack, as per patient this was normal, patient has been cleared by cardiology as well for discharge, 3 cardiac troponins are negative during this admission, d-dimer was negative, BNP is normal, and lipase was normal 2 paroxysmal atrial fibrillation, currently in sinus mechanism Lopressor 50 mg twice daily maintenance as well as liquids 5 mg twice a day 2. Hypertension. Continue Lopressor. 3. History of coronary artery disease status post stent in the LAD and left circumflex in 2013. Continue aspirin 81 mg daily, Crestor 10 mg daily, Lopressor 25 mg twice daily. 4. Gastroesophageal reflux disease. Continue Pepcid. Add Protonix for home discharge 5. Mild persistent asthma. DuoNeb treatments as needed. Patient is on Qvar, continue Singulair. 6. DVT prophylaxis. On maintenance [place] 7. Macular degeneration right eye, stable. 8. Hyperlipidemia. Continue Crestor. Patient placed as an observation status. Discharge plan: Return home today stable for discharge outpatient esophagram, will need consultation with gastroenterology. Discharge Medication List Beclomethasone Dipropionate [Qvar 80 mcg/puff] 2 puff INHALATION RT-BID 04/17/14 [History] Famotidine [Pepcid] 20 mg PO BID 04/17/14 [History] Montelukast [Singulair] 10 mg PO HS 04/17/14 [History] Rosuvastatin Calcium [Crestor] 10 mg PO DAILY 04/17/14 [History] Apixaban [Eliquis] 5 mg PO BID #60 tab 03/12/19 [Rx] Metoprolol Tartrate [Lopressor] 50 mg PO BID #60 tab 03/12/19 [Rx] Clopidogrel Bisulfate [Plavix] 75 mg PO Q48H 05/05/19 [History] Pantoprazole Sodium [Protonix] 40 mg PO DAILY #30 tablet. 05/06/19 [Rx]
== END 2019-05-06 14:30 | disposition home or self-care (01) ==
LOC: EC 19:02 → 1SOBS 21:15
PROVIDERS: ADMIT Family Medicine; ATTEND Family Medicine
DX: R07.89 Other chest pain (principal); I25.10 Atherosclerotic heart disease of native coronary artery without angina pectoris; M79.7 Fibromyalgia; J45.30 Mild persistent asthma, uncomplicated; K21.9 Gastro-esophageal reflux disease without esophagitis; R11.0 Nausea; R10.13 Epigastric pain; R13.10 Dysphagia, unspecified; I10 Essential (primary) hypertension; E78.5 Hyperlipidemia, unspecified; I48.0 Paroxysmal atrial fibrillation; K44.9 Diaphragmatic hernia without obstruction or gangrene; R00.0 Tachycardia, unspecified; H35.30 Unspecified macular degeneration; Z79.01 Long term (current) use of anticoagulants; Z79.02 Long term (current) use of antithrombotics/antiplatelets; Z79.51 Long term (current) use of inhaled steroids; Z79.899 Other long term (current) drug therapy; Z88.5 Allergy status to narcotic agent; Z91.011 Allergy to milk products; Z95.5 Presence of coronary angioplasty implant and graft; Z86.79 Personal history of other diseases of the circulatory system; Z90.49 Acquired absence of other specified parts of digestive tract; Z98.51 Tubal ligation status; Z83.3 Family history of diabetes mellitus; Z82.49 Family history of ischemic heart disease and other diseases of the circulatory system
CPT/HCPCS: 96374; 99285; 36415; 93005 ×2; 85379; 83880; 80061; 80053; 82150; 83605; 83690; 83735; 84484 ×2; 85025; 85610; 85730; 81003; 71045; G0378 ×2; J2405

== ENCOUNTER 2019-05-07 18:18 | Inpatient (IN) | payer MEDICARE, BC ==
[2019-05-07] MEDS ORDERED: ASPIRIN 81 MG PO STA (19:22)
--- NOTE | 2019-05-07 20:25 | XR ---
EXAMINATION TYPE: XR chest 2V DATE OF EXAM: 05/07/2019 COMPARISON: 05/05/2019 HISTORY: 78-year-old female with chest pain TECHNIQUE: PA and lateral views FINDINGS: Heart normal size. Mild elongation thoracic aorta. Hyperinflation with flattening of the hemidiaphrag ms. Epicardial fat pad at the cardiac apex. No consolidation or pleural effusion seen. IMPRESSION: COPD without acute cardiopulmonary process.
[2019-05-07 20:27] LABS: Basophils % (A) 1 %; Eosinophils # (A) 0.1 k/uL (0-0.7); Eosinophils % (A) 2 %; HCT 40.7 % (34.0-46.0); HGB 13.3 gm/dL (11.4-16.0); Lymphocytes # (A) 1.6 k/uL (1.0-4.8); Lymphocytes % (A) 25 %; MCH 30.8 pg (25.0-35.0); MCHC 32.7 g/dL (31.0-37.0); MCV 93.9 fL (80.0-100.0); Mean Platelet Volume 7.3; Monocytes # (A) 0.5 k/uL (0-1.0); Monocytes % (A) 7 %; Neutrophils # (A) 4.1 k/uL (1.3-7.7); Neutrophils % (A) 63 %; Platelet Count 286 k/uL (150-450); RBC 4.33 m/uL (3.80-5.40); RDW 14.5 % (11.5-15.5); WBC 6.5 k/uL (3.8-10.6)
[2019-05-07 20:34] LABS: INR 0.9 (<1.2)
[2019-05-07 20:35] LABS: Partial Thromboplastin Time 24.3 sec (22.0-30.0); Prothrombin Time 9.9 sec (9.0-12.0)
[2019-05-07 20:37] LABS: ALT 19 U/L (9-52); AST 23 U/L (14-36); African American GFR (CKD) >90 (>60 ml/min/1.73 sqM); Albumin 4.4 g/dL (3.5-5.0); Alkaline Phosphatase 66 U/L (38-126); Anion Gap 10 mmol/L; Blood Urea Nitrogen 18 mg/dL (7-17); Calcium 9.6 mg/dL (8.4-10.2); Carbon Dioxide 25 mmol/L (22-30); Chloride 104 mmol/L (98-107); Glucose 95 mg/dL (74-99); Lipase 178 U/L (23-300); Sodium 139 mmol/L (137-145); Total Bilirubin 0.5 mg/dL (0.2-1.3); Total Protein 7.4 g/dL (6.3-8.2)
[2019-05-07] MEDS ORDERED: HEPARIN SODIUM,PORCINE 5,000 UNIT/ML 1 ML VIAL IV ONE (21:29)
[2019-05-07] MEDS ORDERED: HEPARIN SODIUM,PORCINE 5,000 UNIT/ML 1 ML VIAL IV PRN (21:29)
[2019-05-07] MEDS ORDERED: HEPARIN SOD,PORK IN 0.45% NACL 25,000 UNIT in 0.45% NACL 1 250ML.BAG IV SCH (21:30)
--- NOTE | 2019-05-07 21:32 | ED ---
Chest Pain HPI - General Chief Complaint: Chest Pain Stated Complaint: Chest pain Time Seen by Provider: 05/07/19 19:15 Source: patient Mode of arrival: ambulatory Limitations: no limitations - History of Present Illness Initial Comments: The patient is a 78 year old female who presents to the emergency room with complaint of chest pain. The patient was recently discharged from the hospital for evaluation of similar complaint. Previously she stated that she developed chest pain after she ate. She was evaluated from a cardiac standpoint as well as for her hiatal hernia. She is discharged from the hospital and was to follow-up with Dr. Pop. States that today she went shopping in [place] and while she was shopping she began having exertional shortness of breath and chest pain. Pain would stop when she rested. It is located substernally with radiation to her jaws. She called Dr. Pop's office who instructed her to come back to the emergency department. She denies associated nausea, vomiting or diaphoresis. She does have a history of stent placement x3 in 2013. She is currently on Eliquis. Denies ripping or tearing sensation to her back. No cough or hemoptysis. No unilateral calf pain or swelling. No history of DVTs or PEs. No recent travel or prolonged immobility. There are no other alleviating, precipitating or modifying factors - Related Data Home Medications Medication Instructions Recorded Confirmed Beclomethasone Dipropionate [Qvar 2 puff INHALATION RT-BID 04/17/14 05/07/19 80 mcg/puff] Famotidine [Pepcid] 20 mg PO BID 04/17/14 05/07/19 Montelukast [Singulair] 10 mg PO HS 04/17/14 05/07/19 Rosuvastatin Calcium [Crestor] 10 mg PO DAILY 04/17/14 05/07/19 Clopidogrel Bisulfate [Plavix] 75 mg PO Q48H 05/05/19 05/07/19 Previous Rx's Medication Instructions Recorded Apixaban [Eliquis] 5 mg PO BID #60 tab 03/12/19 Metoprolol Tartrate [Lopressor] 50 mg PO BID #60 tab 03/12/19 Pantoprazole Sodium [Protonix] 40 mg PO DAILY #30 tablet. 05/06/19 Allergies Allergy/AdvReac Type Severity Reaction Status Date / Time Milk Containing Products Allergy Mild Wheezing Verified 05/07/19 19:51 [Dairy] codeine AdvReac Nausea & Verified 05/07/19 19:51 Vomiting Review of Systems ROS Statement: Those systems with pertinent positive or pertinent negative responses have been documented in the HPI. ROS Other: All systems not noted in ROS Statement are negative. EKG Findings - EKG Comments: EKG Findings:: EKG demonstrates a normal sinus rhythm with a ventricular rate of 71. [place] interval 182. QRS 74. Qtc 408. There are no acute ST segment elevations or depressions concerning for ischemic changes. Past Medical History Past Medical History: Atrial Fibrillation, Asthma, Coronary Artery Disease (CAD), Chest Pain / Angina, Fibromyalgia, GERD/Reflux, Hyperlipidemia, Hypertension, Syncope Additional Past Medical History / Comment(s): Syncope, hiatal hernia History of Any Multi-Drug Resistant Organisms: None Reported Past Surgical History: Appendectomy, Heart Catheterization With Stent, Hernia Repair, Tonsillectomy, Tubal Ligation Past Anesthesia/Blood Transfusion Reactions: No Reported Reaction Additional Past Anesthesia/Blood Transfusion Reaction / Comment(s): hard time waking up the patient Date of Last Stent Placement:: 04/2014 Past Psychological History: No Psychological Hx Reported Smoking Status: Never smoker Past Alcohol Use History: None Reported Past Drug Use History: None Reported - Past Family History Mother Family Medical History: Coronary Artery Disease (CAD), Diabetes Mellitus Additional Family Medical History / Comment(s): Pt is adopted. Father Family Medical History: Coronary Artery Disease (CAD), Diabetes Mellitus Additional Family Medical History / Comment(s): Pt is adopted. General Exam Limitations: no limitations General appearance: alert, in no apparent distress Head exam: Present: atraumatic, normocephalic, normal inspection Eye exam: Present: normal appearance, PERRL, EOMI. Absent: scleral icterus, conjunctival injection, periorbital swelling ENT exam: Present: normal exam, mucous membranes moist Neck exam: Present: normal inspection. Absent: tenderness, meningismus, lymphadenopathy Respiratory exam: Present: normal lung sounds bilaterally. Absent: respiratory distress, wheezes, rales, rhonchi, stridor Cardiovascular Exam: Present: regular rate, normal rhythm, normal heart sounds, other (Symmetric pulses in the upper extremities). Absent: systolic murmur, diastolic murmur, rubs, gallop, clicks GI/Abdominal exam: Present: soft, normal bowel sounds. Absent: distended, tenderness, guarding, rebound, rigid Extremities exam: Present: normal inspection, full ROM, normal capillary refill. Absent: tenderness, pedal edema, joint swelling, calf tenderness Back exam: Present: normal inspection Neurological exam: Present: alert, oriented X3, CN II-XII intact Psychiatric exam: Present: normal affect, normal mood Skin exam: Present: warm, dry, intact, normal color. Absent: rash Course Vital Signs 05/07/19 05/07/19 05/07/19 19:04 19:50 20:00 Temperature 98.5 F Pulse Rate 76 74 74 Respiratory 18 13 29 H Rate Blood Pressure 152/81 128/83 O2 Sat by Pulse 94 L 93 L Oximetry 05/07/19 05/07/19 05/07/19 20:10 20:20 20:30 Temperature Pulse Rate 73 76 Respiratory 13 14 Rate Blood Pressure 132/82 132/82 132/82 O2 Sat by Pulse 94 L 92 L Oximetry 05/07/19 05/07/19 05/07/19 20:40 20:50 21:00 Temperature Pulse Rate 74 74 75 Respiratory 14 12 18 Rate Blood Pressure 132/82 132/82 132/82 O2 Sat by Pulse 92 L 94 L 93 L Oximetry 05/07/19 05/07/19 05/07/19 21:10 21:20 21:30 Temperature Pulse Rate 80 Respiratory 10 L Rate Blood Pressure 132/82 132/82 166/111 O2 Sat by Pulse 98 Oximetry 05/07/19 05/07/19 05/07/19 21:40 21:50 22:00 Temperature Pulse Rate 75 81 81 Respiratory 14 15 15 Rate Blood Pressure 166/111 166/111 166/111 O2 Sat by Pulse 94 L 93 L 93 L Oximetry 05/07/19 05/07/19 05/07/19 22:10 22:20 22:30 Temperature Pulse Rate 75 78 77 Respiratory 15 17 11 L Rate Blood Pressure 123/84 123/84 123/84 O2 Sat by Pulse 92 L 91 L 92 L Oximetry 05/07/19 05/07/19 05/07/19 22:37 22:40 22:50 Temperature Pulse Rate 80 79 77 Respiratory 28 H 23 11 L Rate Blood Pressure 123/84 123/84 O2 Sat by Pulse 93 L 94 L 94 L Oximetry 05/07/19 05/07/19 05/07/19 23:00 23:10 23:20 Temperature Pulse Rate 79 80 Respiratory 11 L 9 L 16 Rate Blood Pressure 123/84 126/77 126/77 O2 Sat by Pulse 94 L 93 L Oximetry 05/07/19 05/07/19 05/07/19 23:30 23:40 23:50 Temperature Pulse Rate 78 79 77 Respiratory 14 13 9 L Rate Blood Pressure 126/77 126/77 126/77 O2 Sat by Pulse 93 L 94 L 95 Oximetry 05/08/19 05/08/19 05/08/19 00:00 00:10 00:20 Temperature Pulse Rate 73 71 Respiratory 12 14 Rate Blood Pressure 126/77 O2 Sat by Pulse 92 L 89 L Oximetry 05/08/19 05/08/19 00:30 01:00 Temperature Pulse Rate 73 81 Respiratory 9 L 20 Rate Blood Pressure 115/61 O2 Sat by Pulse 94 L 100 Oximetry Chest Pain MDM - Core Measures AMI Core Measures Followed: Yes - Differential Diagnosis AMI, ACS, PE, Pericarditis, Pneumonia, GERD, Esophageal Spasm - MDM Patient was placed into room 3. She is placed on continuous pulse ox and cardiac monitoring. A 12-lead EKG is performed which demonstrates no acute ST segment elevations or depressions. She was given 324 mg of chewable asa. I offered nitroglycerin for her chest pain however she states that her pain is resolved at this time. Laboratory studies were conducted. Patient was sent for chest x-ray. She also has a CT of her abdomen and pelvis performed to evaluate her hiatal hernia as her records do not have a CT reported. Upon return of the results, I did discuss them with the patient. The patient does have an elevated troponin at this time. The patient was heparinized. I did hold her Eliquis. I talked to Dr. Pop. He is recommended the patient be made nothing by mouth at midnight. We will continue to trend her troponins. The patient understood the treatment plan and was in agreement. She remained in stable condition awaiting transport to the floor Disposition Clinical Impression: NSTEMI (non-ST elevated myocardial infarction), Chest pain, Hiatal hernia Disposition: ADMITTED IP TO THIS HOSP Condition: Stable Is patient prescribed a controlled substance at d/c from ED?: No Decision to Admit Reason: Admit from EC Decision Date: 05/07/19 Decision Time: 21:33
[2019-05-07] MEDS ORDERED: NALOXONE 0.4 MG/ML 1 ML VIAL IV PRN (21:34)
--- NOTE | 2019-05-07 21:59 | CT ---
EXAMINATION TYPE: CT abdomen pelvis w con DATE OF EXAM: 05/07/2019 COMPARISON: NONE HISTORY: 78-year-old female with pain in chest, patient is unsure if the pain is secondary to her hia angela hernia. TECHNIQUE: Contiguous axial scanning of the abdomen and pelvis following administration of 100 ml Iso antonio 300 IV contrast. Delayed images through the kidneys and coronal/sagittal reconstructions perform ed. CT DLP: 787.7 mGycm Automated exposure control for dose reduction was used. FINDINGS: Heart normal size without pericardial effusion. Strandy atelectasis in the lower lungs. No pleural ef fusion. There is a small to moderate sized hiatal hernia demonstrated. Possible soft tissue shouldering/thick ening at the GE junction, axial image 13 and coronal image 43. No focal liver lesion or biliary ductal dilatation. Portal venous system is patent. Gallbladder, adrenal glands, kidneys, spleen with tiny posterior splenule, and pancreas appear within normal limits. Small diverticulum of the second portion of the duodenum projecting into the pancreat ic head region. Generalized fold thickening of the stomach may be secondary to nondistention. Mild to moderate atherosclerotic calcifications abdominal aorta and iliac arteries. No dilated small bowel, free fluid, or free air. No mesenteric or retroperitoneal lymphadenopathy. Scattered [id number] stool. Minimal diverticular change along the sigmoid colon. No pericolonic inflammatory change. Bladder is urine distended. Uterus and both ovaries are visualized. Ovaries are high riding in the pe lvis. There is a 2.2 cm cystic lesion of the right ovary. No suspicious soft tissue nodularity is see n. No abnormal fluid collection in the pelvis or pelvic lymphadenopathy. Bones: Degenerative dextroconvex curvature of the lumbar spine. Severe degenerative disc disease L3-L 4 with grade 1 anterolisthesis at this level. IMPRESSION: 1. SMALL TO MODERATE SIZE HIATAL HERNIA. DIFFICULT TO EXCLUDE SOME SHOULDERING/SOFT TISSUE THICKENING AT THE GE JUNCTION. CONSIDER DIRECT VISUALIZATION TO EXCLUDE EARLY NEOPLASM IF INDICATED. 2. MILD DIFFUSE GASTRIC FOLD THICKENING MAY BE SECONDARY TO GASTRITIS OR POOR DISTENTION. CLINICALLY CORRELATE. 3. MINIMAL DIVERTICULAR CHANGE IN THE SIGMOID COLON. NO EVIDENCE FOR ACUTE DIVERTICULITIS. 4. A 2.2 CM CYST OF THE RIGHT OVARY. IN A POSTMENOPAUSAL FEMALE, CONSENSUS GUIDELINES RECOMMEND ANNUA L ULTRASOUND SURVEILLANCE.
[2019-05-07] MEDS: METOPROLOL TARTRATE 50 MG TAB PO SCH (22:34)
[2019-05-07] MEDS: ATORVASTATIN 20 MG TAB PO SCH (22:35)
[2019-05-08] MEDS: MONTELUKAST 10 MG TAB PO SCH ×2 (00:05→19:48)
[2019-05-08 02:41] LABS: Basophils % (A) 1 %; Eosinophils # (A) 0.1 k/uL (0-0.7); Eosinophils % (A) 2 %; HCT 40.2 % (34.0-46.0); HGB 12.6 gm/dL (11.4-16.0); Lymphocytes % (A) 36 %; MCHC 31.3 g/dL (31.0-37.0); MCV 95.8 fL (80.0-100.0); Mean Platelet Volume 6.7; Monocytes # (A) 0.3 k/uL (0-1.0); Monocytes % (A) 6 %; Neutrophils # (A) 2.8 k/uL (1.3-7.7); Neutrophils % (A) 51 %; Platelet Count 254 k/uL (150-450); RDW 12.6 % (11.5-15.5); WBC 5.5 k/uL (3.8-10.6)
[2019-05-08] MEDS ORDERED: ATORVASTATIN 40 MG TAB PO STA ×2 (05:42→08:08)
[2019-05-08] MEDS: ASPIRIN 325 MG TAB PO STA ×2 (06:07→06:08)
[2019-05-08] MEDS: ATORVASTATIN 20 MG TAB PO SCH (06:08)
[2019-05-08] MEDS: METOPROLOL TARTRATE 50 MG TAB PO SCH ×2 (06:08→19:48)
[2019-05-08] MEDS: PANTOPRAZOLE 40 MG TABLET PO SCH (06:08)
[2019-05-08] MEDS: ONDANSETRON 4 MG/2 ML VIAL IVP PRN ×2 (06:42→13:24)
[2019-05-08] MEDS ORDERED: BUDESONIDE 1 MG/2 ML NEBU INHALATION SCH (08:00)
[2019-05-08] MEDS ORDERED: SODIUM CHLORIDE 0.9% 1,000 ML in EMPTY BAG 1 BAG IV ONE (08:08)
[2019-05-08] MEDS ORDERED: ALPRAZolam 0.5 MG TAB PO PRN ×2 (08:08→08:21)
[2019-05-08] MEDS ORDERED: ALPRAZolam 0.25 MG TAB PO PRN (08:08)
[2019-05-08] MEDS ORDERED: NITROGLYCERIN SL TABS 0.4 MG TAB SUBLINGUAL PRN (08:08)
[2019-05-08] MEDS ORDERED: ASPIRIN 325 MG TAB PO STA (08:08)
[2019-05-08] MEDS: FAMOTIDINE 20 MG TAB PO SCH ×2 (09:05→19:48)
[2019-05-08 09:51] LABS: Glucose,Whole Blood 88 mg/dL (75-99)
--- NOTE | 2019-05-08 10:39 | CONS ---
CONSULTATION Mrs. Pena was recently seen by me and discharged home on Wednesday when she presented to the hospital with discomfort in the epigastric and chest area after eating. Troponins are normal. EKG was unremarkable and I discharged her home with the appointment to see me today. However, she came into the hospital yesterday after complaining of having some discomfort in the chest when she went for a walk. She did a brisk walk and felt she had chest pressure and called me and I suggested her to come into the hospital. On arrival, her troponin was 0.64 and the repeat level was also 0.64. She is heparinized, comfortable, asymptomatic at the time of my evaluation. Her EKG revealed a sinus mechanism with poor R-wave progression over precordial leads. No acute changes. Please refer to my detailed consultation a couple of days ago. This patient has history of CAD, underwent multiple stents in the LAD. The last PTCA procedure was performed in 2013 and at that time, I performed PTCA and stenting of proximal and mid LAD and also PTCA of circumflex coronary artery. She had a drug- eluting stent deployed at 2.75 caliber 8 mm stent in the circumflex and LAD had multiple stents performed. A 2.5 caliber Xience stent was deployed last. She also has bronchial asthma and hyperlipidemia, has some intolerance to statins, but has been tolerating Crestor fairly well. She also has developed paroxysmal atrial fibrillation and has been on Eliquis 5 mg b.i.d. MEDICATIONS: Home medications include Crestor 10 mg daily, Lopressor 50 mg b.i.d., Singulair 10 mg daily, Plavix 75 mg daily, Eliquis 5 mg b.i.d. PHYSICAL EXAMINATION: On examination, blood pressure is 130/70, pulse rate 70 per minute. HEENT: Unremarkable. Fundus was not examined by me. NECK: Is supple. No JVD. I do not hear a carotid bruit. There is no thyromegaly. HEART: Exam reveals S1, S2 heard normally in all areas. There is no significant rub, murmur or gallop. LUNGS: Are clear. ABDOMEN: Is soft, nontender. LOWER EXTREMITIES: Reveal normal pulses. No edema. CENTRAL NERVOUS SYSTEM: Is grossly within normal limits. EKG revealed sinus mechanism with poor R-wave progression in lead V1, V2. IMPRESSION: 1. Chest pain syndrome with troponin elevation suggestive of non-ST elevation myocardial infarction in a patient with known multivessel PCI. 2. Hypertension. 3. Hyperlipidemia. 4. Bronchial asthma. 5. Paroxysmal atrial fibrillation, maintaining sinus rhythm. RECOMMENDATIONS: I am recommending that we will proceed with cardiac catheterization. The rationale, risks, benefits and options explained. Patient understands all details and wishes to proceed with the procedure. LARS / WICHO: [id number] /
[2019-05-08] MEDS ORDERED: IV FLUID CONTINUATION 1,000 ML IV ONE (11:20)
[2019-05-08] MEDS: MIDAZOLAM (PF) 2 MG/2 ML VIAL IV ONE ×2 (11:23→11:27)
[2019-05-08] MEDS ORDERED: LIDOCAINE 1% INJ 10MG/ML (20 ML MDV) SQ ONE (11:26)
[2019-05-08] MEDS ORDERED: HYDROmorphone 1 MG/ML 1 ML SYRINGE IVP ONE (11:42)
[2019-05-08] MEDS ORDERED: BIVALIRUDIN BOLUS 250 MG/50 ML IV ONE (11:44)
[2019-05-08] MEDS ORDERED: BIVALIRUDIN 250 MG in SODIUM CHLORIDE 0.9% 50 ML IV ONE (11:45)
[2019-05-08] MEDS ORDERED: IOPAMIDOL-370 100ML BTL INJ ONE ×2 (11:59→12:33)
[2019-05-08] MEDS ORDERED: NITROGLYCERIN 1000MCG/10ML SYRINGE INTRACORON ONE (12:27)
[2019-05-08] MEDS ORDERED: NITROGLYCERIN SL TABS 0.4 MG TAB SUBLINGUAL ONE (12:55)
[2019-05-08] MEDS ORDERED: CLOPIDOGREL 75 MG TAB PO ONE (12:55)
--- NOTE | 2019-05-08 14:53 | CC ---
CARDIAC CATHETERIZATION REPORT DATE OF SERVICE: 05/08/2019. PROCEDURE: 1. Left heart catheterization and coronary angiography. 2. PTCA and stenting of a complex calcified proximal/mid RCA with a 2 drug-eluting stents. RCA origin was somewhat ectopic. Moderate conscious sedation time was 66 minutes. Patient was administered Versed and Dilaudid. Oxygen saturation, hemodynamics and EKG were monitored closely. CLINICAL INFORMATION: Mrs. Elaine Pena is a 78-year-old lady with a known history of CAD. She underwent stenting of LAD on multiple occasions and the last [employer] procedure was in April of 2014. She had a stent of the LAD which was the restenotic lesion performed with another drug- eluting stent and I also performed stent of mid circumflex at that time. Since then, she did well for 5 years, came into the hospital. Chest pain, was discharged with the office followup but came back with exertional chest pain this time and was hospitalized with borderline troponin elevation. She was advised cardiac catheterization after due discussion regarding risks, benefits, and options. PROCEDURE NOTE: Under local anesthesia and strict aseptic precautions, a 6-Mauritanian introducer was placed in the right femoral artery. Using standard Jv catheters, I performed coronary angiography and a pigtail catheter was used to check LV pressure. I proceeded to perform PCI of the RCA which was a new de Ivan lesion which is very tight calcified lesion. Following the PCI procedure, I placed an Angio-Seal device and she was sent to the room in a stable condition. The patient received Angiomax bolus and infusion as per protocol and she received 300 mg of Plavix and patient was already taking Plavix prior to that, along with Eliquis 5 mg b.i.d. This patient has history of paroxysmal atrial fibrillation, CAD, hypertension, and hyperlipidemia. Recently in March of this year, a diagnosis of paroxysmal atrial fibrillation was made. CARDIAC CATHETERIZATION FINDINGS: Underlying this the left foot end-diastolic pressure was 18 mmHg without any gradient across aortic valve. Coronary angiography findings the right coronary artery dominant vessel, heavily calcified in the mid segment has a 95% proximal lesion in the mid segment. There is a 70% lesion after which the caliber improves and vessel bifurcates in large PDA and PLV, both of which supply a sizable amount of myocardium. LEFT MAIN CORONARY ARTERY: Short patent disease-free vessel that bifurcates into LAD and circumflex. LEFT ANTERIOR DESCENDING CORONARY ARTERY: Good caliber vessel extends along the anterior wall. There extends along the anterior wall. The LAD is widely patent within the stented segment with some diffuse disease in the mid and distal portion, but there are lesions of no more than 40%. Distally the stented segment is widely patent with remarkably good flow. The diagonal branches are small in caliber, have mild diffuse disease. The last stent performed was in 2013 and that area looks widely patent. LEFT POSTERIOR CIRCUMFLEX CORONARY ARTERY: This vessel was stented in the midportion in 2013. The vessel is widely patent with fair caliber distribution, supplies a sizable amount of myocardium, has no significant disease in the stented segment is widely patent. Left ventriculogram was not performed. FINAL IMPRESSION: This patient has elevated filling pressures no gradient across aortic valve, 95% stenosis in the proximal right coronary artery, 70% in the mid right coronary artery, long area of disease. The previously stented LAD and circumflex are widely patent with good flow. LV gram was not performed. RECOMMENDATION: Recommended PCI of RCA and proceeded to perform this in the same setting. Initially I used a JR4 catheter and then switched over to a KRH catheter and then also Amplatz 1 and Karley guide catheters. I could not get a good guide support. Eventually with a KRS catheter, I was able to cannulate the right coronary artery. A run-through wire was used to cross the lesion. I pre-dilated the lesion with a 2.5 caliber 12 mm NC Trek balloon. There was a flap in the proximal lesion with a small intrinsic dissection. The distal area was stented with a 15 mm long 2.75 caliber Xience stent and another 12 mm stent was telescoped into the previous stent proximally. This was a 2.75 caliber 12 mm long Xience stent. Excellent angiographic result was achieved. Patient had chest pain and EKG changes with inflations. She received Angiomax bolus and infusion as per protocol and also received 3 mg of Plavix. Patient was already on Plavix and Eliquis. Excellent angiographic result was achieved without complication. Results were discussed with the patient and family and she was sent to the room in stable condition. MMODL / IJN: [id number] /
--- NOTE | 2019-05-08 15:06 | P.HPIM ---
History of Present Illness H&P Date: 05/08/19 This is a 78-year-old female patient of Dr. Mccormack and Dr. RITIKA Pop with past medical history of coronary artery disease with prior stenting of the LAD and left circumflex in 2013, hypertension, hyperlipidemia, macular degeneration on the right eye. Her last admission was in March 2019, she presented with A. fib with RVR, she is on eliquis and Lopressor, no presenting with chest pain emergency room, for the past 2 days, related to food intake, not with exertion, epigastric in location, postprandial. Patient denies any aspirated events, no previous EGD in the past however she does have hiatal hernia, patient denies any melena hematochezia, cardiology is consulted during this admission . Patient came into [facility] emergency center for evaluation initially on May 07 EKG showed sinus tachycardia heart rate 102, cannot rule out anteroseptal infarct age undetermined, no QRS, cardiology has seen the patient, with 3 negative troponins, patient presented with atypical chest pain, suspect GERD against achalasia, esophagram was discussed with done as an outpatient, patient wants to wait for the test prior to consultation to Dr. Ricardo gastroenterology. Patient is to see Dr. Mccormack PCP, and patient was discharged home. Patient returns to the hospital with chest pain with exertion especially when she attempted to call the bathroom. She denies having any lower extremity edema, no cough no blood thinners stools. She does complain of some slight nausea. She states the pain is in the upper anterior chest and goes across the chest and sometimes into the neck. She did not use nitroglycerin at home. She returned to the emergency center and has been scheduled for heart catheterization today. Review of Systems Constitutional: Reports fatigue, Denies anorexia, Denies chills, Denies chronic headaches, Denies fever, Denies lethargy, Denies night sweats, Denies poor appetite, Denies weakness Ears, nose, mouth and throat: Denies dysphagia, Denies epistaxis, Denies headache, Denies mouth pain, Denies nasal congestion, Denies nasal discharge, Denies sore throat Cardiovascular: Reports chest pain, Reports decreased exercise tolerance, Reports dyspnea on exertion, Denies edema, Denies lightheadedness, Denies shortness of breath, Denies syncope Respiratory: Denies cough, Denies cough with sputum, Denies excessive sputum Gastrointestinal: Denies abdominal pain, Denies diarrhea, Denies loss of appetite, Denies nausea, Denies vomiting Genitourinary: Denies dysuria, Denies hematuria Musculoskeletal: Denies frequent falls, Denies gait dysfunction, Denies muscle weakness Integumentary: Denies pruritus, Denies rash, Denies wounds Past Medical History Past Medical History: Atrial Fibrillation, Asthma, Coronary Artery Disease (CAD), Chest Pain / Angina, Fibromyalgia, GERD/Reflux, Hyperlipidemia, Hypertension, Syncope Additional Past Medical History / Comment(s): Syncope, hiatal hernia History of Any Multi-Drug Resistant Organisms: None Reported Past Surgical History: Appendectomy, Heart Catheterization With Stent, Hernia Repair, Tonsillectomy, Tubal Ligation Past Anesthesia/Blood Transfusion Reactions: No Reported Reaction Additional Past Anesthesia/Blood Transfusion Reaction / Comment(s): hard time waking up the patient Date of Last Stent Placement:: 04/2014 Past Psychological History: No Psychological Hx Reported Smoking Status: Never smoker Past Alcohol Use History: None Reported Past Drug Use History: None Reported - Past Family History Mother Family Medical History: Coronary Artery Disease (CAD), Diabetes Mellitus Additional Family Medical History / Comment(s): Pt is adopted. Father Family Medical History: Coronary Artery Disease (CAD), Diabetes Mellitus Additional Family Medical History / Comment(s): Pt is adopted. Medications and Allergies Home Medications Medication Instructions Recorded Confirmed Type Beclomethasone Dipropionate [Qvar 2 puff INHALATION RT-BID 04/17/14 05/07/19 History 80 mcg/puff] Famotidine [Pepcid] 20 mg PO BID 04/17/14 05/07/19 History Montelukast [Singulair] 10 mg PO HS 04/17/14 05/07/19 History Rosuvastatin Calcium [Crestor] 10 mg PO DAILY 04/17/14 05/07/19 History Apixaban [Eliquis] 5 mg PO BID #60 tab 03/12/19 05/07/19 Rx Metoprolol Tartrate [Lopressor] 50 mg PO BID #60 tab 03/12/19 05/07/19 Rx Clopidogrel Bisulfate [Plavix] 75 mg PO Q48H 05/05/19 05/07/19 History Pantoprazole Sodium [Protonix] 40 mg PO DAILY #30 tablet. 05/06/19 05/07/19 Rx Allergies Allergy/AdvReac Type Severity Reaction Status Date / Time Milk Containing Products Allergy Mild Wheezing Verified 05/07/19 19:51 [Dairy] codeine AdvReac Nausea & Verified 05/07/19 19:51 Vomiting Physical Exam Vitals: Vital Signs Temp Pulse Pulse Resp BP BP Pulse Ox 05/08/19 08:10 97.9 F 70 16 130/67 93 L 05/08/19 08:00 97.9 F 70 16 130/67 93 L 05/08/19 05:30 78 16 05/08/19 04:00 78 16 124/65 97 05/08/19 01:30 97.7 F 84 19 137/91 93 L 05/08/19 01:00 81 20 115/61 100 05/08/19 00:30 73 9 L 94 L 05/08/19 00:20 71 14 89 L 05/08/19 00:10 73 12 92 L 05/08/19 00:00 126/77 05/07/19 23:50 77 9 L 126/77 95 05/07/19 23:40 79 13 126/77 94 L 05/07/19 23:30 78 14 126/77 93 L 05/07/19 23:20 16 126/77 05/07/19 23:10 80 9 L 126/77 93 L 05/07/19 23:00 79 11 L 123/84 94 L 05/07/19 22:50 77 11 L 123/84 94 L 05/07/19 22:40 79 23 123/84 94 L 05/07/19 22:37 80 28 H 93 L 05/07/19 22:30 77 11 L 123/84 92 L 05/07/19 22:20 78 17 123/84 91 L 05/07/19 22:10 75 15 123/84 92 L 05/07/19 22:00 81 15 166/111 93 L 05/07/19 21:50 81 15 166/111 93 L 05/07/19 21:40 75 14 166/111 94 L 05/07/19 21:30 80 10 L 166/111 98 05/07/19 21:20 132/82 05/07/19 21:10 132/82 05/07/19 21:00 75 18 132/82 93 L 05/07/19 20:50 74 12 132/82 94 L 05/07/19 20:40 74 14 132/82 92 L 05/07/19 20:30 76 14 132/82 92 L 05/07/19 20:20 132/82 05/07/19 20:10 73 13 132/82 94 L 05/07/19 20:00 74 29 H 128/83 93 L 05/07/19 19:50 74 13 05/07/19 19:04 98.5 F 76 18 152/81 94 L Intake and Output 05/07/19 05/08/19 05/08/19 22:59 06:59 14:59 Output Total 1 Balance -1 Output: Urine 1 Other: Voiding Method Toilet Toilet # Voids 3 Weight 72.121 kg 72.8 kg - Constitutional General appearance: average body habitus, cooperative, no acute distress - EENT Eyes: EOMI, PERRLA, dentition normal, normal appearance ENT: NA/AT, normal oropharynx - Neck Neck: normal ROM - Respiratory Respiratory: bilateral: CTA, negative: diminished, dullness - Cardiovascular Rhythm: regular Heart sounds: normal: S1, S2 Abnormal Heart Sounds: no systolic murmur, no diastolic murmur, no rub, no S3 Gallop, no S4 Gallop, no click, no other - Gastrointestinal General gastrointestinal: normal bowel sounds, soft - Integumentary Integumentary: decreased turgor, normal - Neurologic Neurologic: CNII-XII intact - Musculoskeletal Musculoskeletal: gait normal, strength equal bilaterally - Psychiatric Psychiatric: A&O x's 3, appropriate affect, intact judgment & insight Results CBC & Chem 7: 05/08/19 02:07 05/07/19 20:06 Labs: Abnormal Lab Results - Last 24 Hours (Table) 05/07/19 05/07/19 05/08/19 Range/Units 20:06 20:06 02:07 APTT 64.5 H (22.0-30.0) sec BUN 18 H (7-17) mg/dL Troponin I 0.064 H* (0.000-0.034) ng/mL 05/08/19 05/08/19 Range/Units 02:07 08:11 APTT (22.0-30.0) sec BUN (7-17) mg/dL Troponin I 0.064 H* 0.042 H* (0.000-0.034) ng/mL Thrombosis Risk Factor Assmnt - Choose All That Apply Any of the Below Risk Factors Present?: Yes Each Factor Represents 1 point: Obesity (BMI >25) Other Risk Factors: Yes Each Risk Factor Represents 3 Points: Age 75 years or older Thrombosis Risk Factor Assessment Total Risk Factor Score: 4 Thrombosis Risk Factor Assessment Level: Moderate Risk Assessment and Plan Plan: 1. Chest pain with exertion. Consult with cardiology. Patient is scheduled for heart catheterization today with Dr. Chino Pop. 2. Paroxysmal atrial fibrillation, currently in sinus mechanism Lopressor 50 mg twice daily and eliquis 5 mg twice a day 2. Hypertension. Continue Lopressor. 3. History of coronary artery disease status post stent in the LAD and left circumflex in 2013. Continue aspirin 81 mg daily, Crestor 10 mg daily, Lopressor 25 mg twice daily. 4. Gastroesophageal reflux disease. Continue Pepcid. Add Protonix for home discharge 5. Mild persistent asthma. DuoNeb treatments as needed. Patient is on Qvar, continue Singulair. 6. DVT prophylaxis. On maintenance A[place] 7. Macular degeneration right eye, stable. 8. Hyperlipidemia. Continue Crestor. Patient admitted to the hospital for a minimum of 2 night stay. Discharge plan: Return home Impression and plan of care have been directed as dictated by the signing physician. Triny Martinez nurse practitioner acting as scribe for signing physician.
[2019-05-08] MEDS ORDERED: MD COMMUNICATION TO PHARMACY 1 EACH MISC PO PRN (16:27)
[2019-05-08] MEDS ORDERED: ACETAMINOPHEN TAB 500 MG TAB PO PRN (18:49)
[2019-05-08] MEDS: QVAR 80 MCG INHALATION SCH (19:48)
[2019-05-08] MEDS: APIXABAN 2.5 MG TABLET PO SCH (19:48)
[2019-05-08] MEDS ORDERED: FLUTICASONE 110 MCG INHALER INHALATION SCH (20:00)
[2019-05-08] MEDS ORDERED: METOPROLOL TARTRATE 50 MG TAB PO SCH (21:00)
[2019-05-08] MEDS ORDERED: CRESTOR 10 MG PO SCH ×2 (21:00)
[2019-05-09 05:51] LABS: Basophils % (A) 0 %; Eosinophils # (A) 0.1 k/uL (0-0.7); Eosinophils % (A) 1 %; HCT 37.9 % (34.0-46.0); HGB 12.1 gm/dL (11.4-16.0); Lymphocytes # (A) 1.1 k/uL (1.0-4.8); Lymphocytes % (A) 21 %; MCH 30.5 pg (25.0-35.0); MCV 95.2 fL (80.0-100.0); Mean Platelet Volume 6.5; Monocytes # (A) 0.4 k/uL (0-1.0); Monocytes % (A) 8 %; Neutrophils # (A) 3.6 k/uL (1.3-7.7); Neutrophils % (A) 66 %; Platelet Count 259 k/uL (150-450); RBC 3.98 m/uL (3.80-5.40); RDW 12.5 % (11.5-15.5); WBC 5.4 k/uL (3.8-10.6)
[2019-05-09 06:08] LABS: African American GFR (CKD) >90 (>60 ml/min/1.73 sqM); Anion Gap 5 mmol/L; Blood Urea Nitrogen 9 mg/dL (7-17); Calcium 8.9 mg/dL (8.4-10.2); Carbon Dioxide 28 mmol/L (22-30); Chloride 105 mmol/L (98-107); Glucose 98 mg/dL (74-99); Potassium 3.9 mmol/L (3.5-5.1); Sodium 138 mmol/L (137-145)
[2019-05-09] MEDS: QVAR 80 MCG INHALATION SCH (07:48)
[2019-05-09] MEDS ORDERED: ASPIRIN 81 MG PO SCH (09:00)
[2019-05-09] MEDS ORDERED: CLOPIDOGREL 75 MG TAB PO SCH ×2 (09:00)
[2019-05-09] MEDS: PANTOPRAZOLE 40 MG TABLET PO SCH (09:31)
[2019-05-09] MEDS: APIXABAN 2.5 MG TABLET PO SCH (09:32)
[2019-05-09] MEDS: FAMOTIDINE 20 MG TAB PO SCH (09:32)
[2019-05-09] MEDS: METOPROLOL TARTRATE 50 MG TAB PO SCH (09:38)
[2019-05-09 10:47] VITALS: BP 123/74; PULSE 84; RESP 16; TEMP 97.4
--- NOTE | 2019-05-09 16:30 | PN ---
PROGRESS NOTE DATE OF SERVICE: Mrs. Pena was hospitalized with chest pain and mild troponin elevation. She underwent stenting of a very tight RCA yesterday. She is doing well. Right groin is clean and dry. Vitals are stable. EKG and labs are unremarkable. S1, S2 heard normally. Lungs are clear. Abdomen and lower extremity exam unchanged. Plan is to continue current medications, increase activity. She will be on Plavix 75 mg every day, Eliquis 2.5 mg b.i.d., aspirin 81 mg daily. After 2 weeks, I will drop the aspirin and continue Eliquis and Plavix alone. Her previously stented LAD was patent and circumflex was patent. Plan is to discharge her today. I will see her in the office in 2 weeks. MMODL / IJN: [id number] /
--- NOTE | 2019-05-10 08:43 | P.DS ---
Providers Date of admission: 05/07/19 21:37 Expected date of discharge: 05/09/19 Attending physician: Cedric Mccormack Consults: 05/07/19 21:34 Consult Physician Urgent Consulting Provider: [facility] Consult Reason/Comments: NSTEMI Do you want consulting provider notified?: Yes Primary care physician: Cedric Mccormack [facility] Course: This is a 78-year-old female patient of Dr. Mccormack and Dr. RITIKA Pop with past medical history of coronary artery disease with prior stenting of the LAD and left circumflex in 2013, hypertension, hyperlipidemia, macular degeneration on the right eye. Her last admission was in March 2019, she presented with A. fib with RVR, she is on eliquis and Lopressor, no presenting with chest pain emergency room, for the past 2 days, related to food intake, not with exertion, epigastric in location, postprandial. Patient denies any aspirated events, no previous EGD in the past however she does have hiatal hernia, patient denies any melena hematochezia, cardiology is consulted during this admission . Patient came into [facility] emergency center for evaluation initially on May 07 EKG showed sinus tachycardia heart rate 102, cannot rule out anteroseptal infarct age undetermined, no QRS, cardiology has seen the patient, with 3 negative troponins, patient presented with atypical chest pain, suspect GERD against achalasia, esophagram was discussed with done as an outpatient, patient wants to wait for the test prior to consultation to Dr. Ricardo gastroenterology. Patient is to see Dr. Mccormack PCP, and patient was discharged home. Patient returns to the hospital with chest pain with exertion especially when she attempted to call the bathroom. She denies having any lower extremity edema, no cough no blood thinners stools. She does complain of some slight nausea. She states the pain is in the upper anterior chest and goes across the chest and sometimes into the neck. She did not use nitroglycerin at home. She returned to the emergency center and has been scheduled for heart catheterization today. 05/08: Yesterday, patient underwent left heart catheterization with Dr. RITIKA Pop, PTCA and stenting of the complex calcified proximal/mid RCA with 2 drug-eluting stents. RCA origin was somewhat ectopic. Today, patient has been cleared for discharge by Dr. Pop with plan to continue current medications increasing Plavix every day, eliquis 2.5 mg twice daily, aspirin 81 mg daily. Plan is that he will drop aspirin in 2 weeks at follow-up appointment. The patient denies any chest pain or shortness of breath. Patient was discharged home in stable condition. Discharge diagnoses: 1. Chest pain with exertion secondary to coronary artery disease of the RCA. 2. Paroxysmal atrial fibrillation, currently in sinus mechanism 3. Hypertension. 4. History of coronary artery disease status post stent in the LAD and left circumflex in 2013. 5. Gastroesophageal reflux disease. 6. Mild persistent asthma. 7. Macular degeneration right eye, stable. 8. Hyperlipidemia. Discharge plan: Return home Impression and plan of care have been directed as dictated by the signing physician. Triny Martinez nurse practitioner acting as scribe for signing physician. Patient Condition at Discharge: Good Plan - Discharge Summary New Discharge Prescriptions: New Aspirin 81 mg PO DAILY chew Apixaban [Eliquis] 2.5 mg PO BID #60 tablet Continue Rosuvastatin Calcium [Crestor] 10 mg PO DAILY Montelukast [Singulair] 10 mg PO HS Famotidine [Pepcid] 20 mg PO BID Beclomethasone Dipropionate [Qvar 80 mcg/puff] 2 puff INHALATION RT-BID Metoprolol Tartrate [Lopressor] 50 mg PO BID #60 tab Clopidogrel Bisulfate [Plavix] 75 mg PO Q48H Pantoprazole Sodium [Protonix] 40 mg PO DAILY #30 tablet. Discontinued Apixaban [Eliquis] 5 mg PO BID #60 tab Discharge Medication List Beclomethasone Dipropionate [Qvar 80 mcg/puff] 2 puff INHALATION RT-BID 04/17/14 [History] Famotidine [Pepcid] 20 mg PO BID 04/17/14 [History] Montelukast [Singulair] 10 mg PO HS 04/17/14 [History] Rosuvastatin Calcium [Crestor] 10 mg PO DAILY 04/17/14 [History] Metoprolol Tartrate [Lopressor] 50 mg PO BID #60 tab 03/12/19 [Rx] Clopidogrel Bisulfate [Plavix] 75 mg PO Q48H 05/05/19 [History] Pantoprazole Sodium [Protonix] 40 mg PO DAILY #30 tablet. 05/06/19 [Rx] Apixaban [Eliquis] 2.5 mg PO BID #60 tablet 05/09/19 [Rx] Aspirin 81 mg PO DAILY chew 05/09/19 [Rx] Follow up Appointment(s)/Referral(s): Mayra Pop MD [STAFF PHYSICIAN] - 05/25/19 9:30 am (Office will call with follow up appointment. ) Cedric Mccormack MD [Primary Care Provider] - 1 Week (Office will call with follow up appointment. ) Patient Instructions/Handouts: Heart Healthy Diet (DC), Safe Use of Anticoagulants (DC), Coronary Intravascular Stent Placement (DC) Activity/Diet/Wound Care/Special Instructions: pt to continue home med crestor 10 daily. Eliqus 2.5 mg daily- new dose ASA daily Discharge Disposition: HOME SELF-CARE
== END 2019-05-09 13:09 | disposition home or self-care (01) | DRG 247 ==
LOC: EC 18:18 → 3SCARD 21:37
PROVIDERS: ADMIT Internal Medicine Geriatric Medicine; ATTEND Internal Medicine Geriatric Medicine
PROC: B2111ZZ Fluoroscopy of Multiple Coronary Arteries using Low Osmolar Contrast (ICD-10-PCS; 2019-05-08)
PROC: 027035Z Dilation of Coronary Artery, One Artery with Two Drug-eluting Intraluminal Devices, Percutaneous Approach (ICD-10-PCS; principal; 2019-05-08 10:56)
PROC: 4A023N7 Measurement of Cardiac Sampling and Pressure, Left Heart, Percutaneous Approach (ICD-10-PCS; 2019-05-08 10:56)
DX: I21.4 Non-ST elevation (NSTEMI) myocardial infarction (principal); I48.0 Paroxysmal atrial fibrillation; I25.10 Atherosclerotic heart disease of native coronary artery without angina pectoris; E78.5 Hyperlipidemia, unspecified; H35.30 Unspecified macular degeneration; I10 Essential (primary) hypertension; J45.30 Mild persistent asthma, uncomplicated; K21.9 Gastro-esophageal reflux disease without esophagitis; K44.9 Diaphragmatic hernia without obstruction or gangrene; M79.7 Fibromyalgia; Z79.01 Long term (current) use of anticoagulants; Z79.82 Long term (current) use of aspirin; Z79.899 Other long term (current) drug therapy; Z79.02 Long term (current) use of antithrombotics/antiplatelets; Z88.5 Allergy status to narcotic agent; Z91.011 Allergy to milk products; Z90.49 Acquired absence of other specified parts of digestive tract; Z98.51 Tubal ligation status; Z82.49 Family history of ischemic heart disease and other diseases of the circulatory system; Z83.3 Family history of diabetes mellitus
CPT/HCPCS: 36415; 71046; 74177; 80048; 80053; 83690; 83735; 83880; 84484; 85025; 85610; 85730; 93005; 93458; 94640; 96365; 96366; 96376; 99285; C1874

== ENCOUNTER 2020-01-09 17:07 | Emergency (ER) | payer MEDICARE, BC ==
[2020-01-09 17:14] VITALS: TEMP 98.1
[2020-01-09] MEDS ORDERED: NITROGLYCERIN OINT 1 INCH/GM PACKET TOPICAL STA (17:34)
[2020-01-09] MEDS ORDERED: ASPIRIN 81 MG PO STA (17:34)
--- NOTE | 2020-01-09 17:40 | ED ---
General Adult HPI - General Chief complaint: Chest Pain Stated complaint: Left arm pain Time Seen by Provider: 01/09/20 17:10 Source: patient, RN notes reviewed, old records reviewed Mode of arrival: ambulatory Limitations: no limitations - History of Present Illness Initial comments: This is a 79-year-old female presents to the emergency department today with a past medical history significant for 5 previous stents hypertension and high cholesterol strong family history of heart disease. Patient states today she started having bilateral arm heaviness. Patient states it has almost subsided at this point. Did start a couple of hours ago. Patient states it's only now in her left arm and more in the forearm. Patient states movement did not make it worse. Patient denies any chest pain or any shortness of breath or difficulty breathing. Patient denied any diaphoresis or nausea. Patient denies any recent fever chills or cough per patient denies headache patient denies numbness weakness. Patient denies lightheadedness dizziness or near-syncopal episode. - Related Data Home Medications Medication Instructions Recorded Confirmed Beclomethasone Dipropionate [Qvar 2 puff INHALATION RT-BID 04/17/14 05/07/19 80 mcg/puff] Famotidine [Pepcid] 20 mg PO BID 04/17/14 05/07/19 Montelukast [Singulair] 10 mg PO HS 04/17/14 05/07/19 Rosuvastatin Calcium [Crestor] 10 mg PO DAILY 04/17/14 05/07/19 Clopidogrel Bisulfate [Plavix] 75 mg PO Q48H 05/05/19 05/07/19 Previous Rx's Medication Instructions Recorded Metoprolol Tartrate [Lopressor] 50 mg PO BID #60 tab 03/12/19 Pantoprazole Sodium [Protonix] 40 mg PO DAILY #30 tablet. 05/06/19 Apixaban [Eliquis] 2.5 mg PO BID #60 tablet 05/09/19 Aspirin 81 mg PO DAILY chew 05/09/19 Allergies Allergy/AdvReac Type Severity Reaction Status Date / Time Milk Containing Products Allergy Mild Wheezing Verified 01/09/20 17:14 [Dairy] codeine AdvReac Nausea & Verified 01/09/20 17:14 Vomiting Review of Systems ROS Statement: Those systems with pertinent positive or pertinent negative responses have been documented in the HPI. ROS Other: All systems not noted in ROS Statement are negative. Past Medical History Past Medical History: Atrial Fibrillation, Asthma, Coronary Artery Disease (CAD), Chest Pain / Angina, Fibromyalgia, GERD/Reflux, Hyperlipidemia, Hypertension, Syncope Additional Past Medical History / Comment(s): Syncope, hiatal hernia History of Any Multi-Drug Resistant Organisms: None Reported Past Surgical History: Appendectomy, Heart Catheterization With Stent, Hernia Repair, Tonsillectomy, Tubal Ligation Past Anesthesia/Blood Transfusion Reactions: No Reported Reaction Additional Past Anesthesia/Blood Transfusion Reaction / Comment(s): hard time waking up the patient Date of Last Stent Placement:: 04/2014 Past Psychological History: No Psychological Hx Reported Smoking Status: Never smoker Past Alcohol Use History: None Reported Past Drug Use History: None Reported - Past Family History Mother Family Medical History: Coronary Artery Disease (CAD), Diabetes Mellitus Additional Family Medical History / Comment(s): Pt is adopted. Father Family Medical History: Coronary Artery Disease (CAD), Diabetes Mellitus Additional Family Medical History / Comment(s): Pt is adopted. General Exam - General Exam Comments Initial Comments: GENERAL: Patient is well-developed and well-nourished. Patient is nontoxic and well- hydrated and is in mild distress. ENT: Neck is soft and supple. No significant lymphadenopathy is noted. Oropharynx is clear. Moist mucous membranes. Neck has full range of motion without eliciting any pain. EYES: The sclera were anicteric and conjunctiva were pink and moist. Extraocular movements were intact and pupils were equal round and reactive to light. Eyelids were unremarkable. PULMONARY: Unlabored respirations. Good breath sounds bilaterally. No audible rales rhonchi or wheezing was noted. CARDIOVASCULAR: There is a regular rate and rhythm without any murmurs gallops or rubs. ABDOMEN: Soft and nontender with normal bowel sounds. SKIN: Skin is clear with no lesions or rashes and otherwise unremarkable. NEUROLOGIC: Patient is alert and oriented x3. Cranial nerves II through XII are grossly intact. Motor and sensory are also intact. Normal speech, volume and content. Symmetrical smile. MUSCULOSKELETAL: Normal extremities with adequate strength and full range of motion. No lower extremity swelling or edema. No calf tenderness. LYMPHATICS: No significant lymphadenopathy is noted PSYCHIATRIC: Normal psychiatric evaluation. Limitations: no limitations Course Vital Signs 01/09/20 01/09/20 17:11 17:55 Temperature 98.1 F Pulse Rate 91 83 Respiratory 18 16 Rate Blood Pressure 168/95 132/84 O2 Sat by Pulse 96 93 L Oximetry Medical Decision Making - Medical Decision Making EKG shows normal sinus rhythm at 86 bpm NC interval is 176 dresses 60 QT interval 356 QTC is 426. Patient's EKG shows no ST segment elevation or depression. Chest x-ray shows no acute abnormality. I initially told the patient that she would need to stay based on her presentation. When the lab results BACK I again indicated to her I want her to stay to be ruled out and see cardiology she did not want to stay and she stated she would call her doctor tomorrow and she decided ago even knowing the risks of going home. - Lab Data Result diagrams: 01/09/20 17:45 01/09/20 17:45 Lab Results 01/09/20 01/09/20 01/09/20 Range/Units 17:45 17:45 17:45 WBC 5.5 (3.8-10.6) k/uL RBC 4.64 (3.80-5.40) m/uL Hgb 14.5 (11.4-16.0) gm/dL Hct 45.4 (34.0-46.0) % MCV 97.7 (80.0-100.0) fL MCH 31.2 (25.0-35.0) pg MCHC 31.9 (31.0-37.0) g/dL RDW 12.2 (11.5-15.5) % Plt Count 248 (150-450) k/uL Neutrophils % 53 % Lymphocytes % 33 % Monocytes % 8 % Eosinophils % 2 % Basophils % 1 % Neutrophils # 2.9 (1.3-7.7) k/uL Lymphocytes # 1.8 (1.0-4.8) k/uL Monocytes # 0.4 (0-1.0) k/uL Eosinophils # 0.1 (0-0.7) k/uL Basophils # 0.0 (0-0.2) k/uL PT (9.0-12.0) sec INR (<1.2) APTT (22.0-30.0) sec Sodium 137 (137-145) mmol/L Potassium 4.9 (3.5-5.1) mmol/L Chloride 104 (98-107) mmol/L Carbon Dioxide 21 L (22-30) mmol/L Anion Gap 12 mmol/L BUN 22 H (7-17) mg/dL Creatinine 0.59 (0.52-1.04) mg/dL Est GFR (CKD-EPI)AfAm >90 (>60 ml/min/1.73 sqM) Est GFR (CKD-EPI)NonAf 89 (>60 ml/min/1.73 sqM) Glucose 117 H (74-99) mg/dL Calcium 9.7 (8.4-10.2) mg/dL Magnesium 1.9 (1.6-2.3) mg/dL Total Bilirubin 0.4 (0.2-1.3) mg/dL AST 36 (14-36) U/L ALT 16 (4-34) U/L Alkaline Phosphatase 53 (38-126) U/L Troponin I <0.012 (0.000-0.034) ng/mL Total Protein 7.8 (6.3-8.2) g/dL Albumin 4.7 (3.5-5.0) g/dL 01/09/20 Range/Units 19:11 WBC (3.8-10.6) k/uL RBC (3.80-5.40) m/uL Hgb (11.4-16.0) gm/dL Hct (34.0-46.0) % MCV (80.0-100.0) fL MCH (25.0-35.0) pg MCHC (31.0-37.0) g/dL RDW (11.5-15.5) % Plt Count (150-450) k/uL Neutrophils % % Lymphocytes % % Monocytes % % Eosinophils % % Basophils % % Neutrophils # (1.3-7.7) k/uL Lymphocytes # (1.0-4.8) k/uL Monocytes # (0-1.0) k/uL Eosinophils # (0-0.7) k/uL Basophils # (0-0.2) k/uL PT 9.6 (9.0-12.0) sec INR 0.9 (<1.2) APTT 23.4 (22.0-30.0) sec Sodium (137-145) mmol/L Potassium (3.5-5.1) mmol/L Chloride (98-107) mmol/L Carbon Dioxide (22-30) mmol/L Anion Gap mmol/L BUN (7-17) mg/dL Creatinine (0.52-1.04) mg/dL Est GFR (CKD-EPI)AfAm (>60 ml/min/1.73 sqM) Est GFR (CKD-EPI)NonAf (>60 ml/min/1.73 sqM) Glucose (74-99) mg/dL Calcium (8.4-10.2) mg/dL Magnesium (1.6-2.3) mg/dL Total Bilirubin (0.2-1.3) mg/dL AST (14-36) U/L ALT (4-34) U/L Alkaline Phosphatase (38-126) U/L Troponin I (0.000-0.034) ng/mL Total Protein (6.3-8.2) g/dL Albumin (3.5-5.0) g/dL Disposition Clinical Impression: Chest pain Disposition: HOME SELF-CARE Condition: Good Instructions (If sedation given, give patient instructions): Chest Pain (ED) Is patient prescribed a controlled substance at d/c from ED?: No Referrals: Cedric Mccormack MD [Primary Care Provider] - 1-2 days Time of Disposition: 19:49
[2020-01-09 18:10] LABS: Basophils % (A) 1 %; Eosinophils # (A) 0.1 k/uL (0-0.7); Eosinophils % (A) 2 %; HCT 45.4 % (34.0-46.0); HGB 14.5 gm/dL (11.4-16.0); Lymphocytes # (A) 1.8 k/uL (1.0-4.8); Lymphocytes % (A) 33 %; MCH 31.2 pg (25.0-35.0); MCHC 31.9 g/dL (31.0-37.0); MCV 97.7 fL (80.0-100.0); Mean Platelet Volume 7.3; Monocytes # (A) 0.4 k/uL (0-1.0); Monocytes % (A) 8 %; Neutrophils # (A) 2.9 k/uL (1.3-7.7); Neutrophils % (A) 53 %; Platelet Count 248 k/uL (150-450); RBC 4.64 m/uL (3.80-5.40); RDW 12.2 % (11.5-15.5); WBC 5.5 k/uL (3.8-10.6)
--- NOTE | 2020-01-09 18:15 | XR ---
EXAMINATION TYPE: XR chest 2V DATE OF EXAM: 01/09/2020 COMPARISON: 05/07/2019 HISTORY: Chest pain TECHNIQUE: FINDINGS: Heart is normal. Lungs are clear. Diaphragm is normal. Bony thorax is intact. There are jose st leads. IMPRESSION: Normal chest. No change.
[2020-01-09 18:38] LABS: ALT 16 U/L (4-34); AST 36 U/L (14-36); African American GFR (CKD) >90 (>60 ml/min/1.73 sqM); Albumin 4.7 g/dL (3.5-5.0); Alkaline Phosphatase 53 U/L (38-126); Anion Gap 12 mmol/L; Blood Urea Nitrogen 22 mg/dL (7-17); Calcium 9.7 mg/dL (8.4-10.2); Carbon Dioxide 21 mmol/L (22-30); Chloride 104 mmol/L (98-107); Glucose 117 mg/dL (74-99); Magnesium 1.9 mg/dL (1.6-2.3); Non-African American GFR(CKD) 89 (>60 ml/min/1.73 sqM); Potassium 4.9 mmol/L (3.5-5.1); Sodium 137 mmol/L (137-145); Total Bilirubin 0.4 mg/dL (0.2-1.3); Total Protein 7.8 g/dL (6.3-8.2)
[2020-01-09 19:29] LABS: INR 0.9 (<1.2); Partial Thromboplastin Time 23.4 sec (22.0-30.0); Prothrombin Time 9.6 sec (9.0-12.0)
[2020-01-09 20:07] VITALS: BP 146/81; PULSE 74; RESP 18
== END 2020-01-09 20:00 | disposition home or self-care (01) ==
LOC: EC 17:07
DX: R07.9 Chest pain, unspecified (principal); R29.898 Other symptoms and signs involving the musculoskeletal system; I48.91 Unspecified atrial fibrillation; J45.909 Unspecified asthma, uncomplicated; I25.119 Atherosclerotic heart disease of native coronary artery with unspecified angina pectoris; K21.9 Gastro-esophageal reflux disease without esophagitis; E78.5 Hyperlipidemia, unspecified; I10 Essential (primary) hypertension; Z88.5 Allergy status to narcotic agent; Z91.011 Allergy to milk products; Z79.02 Long term (current) use of antithrombotics/antiplatelets; Z79.51 Long term (current) use of inhaled steroids; Z79.899 Other long term (current) drug therapy; Z95.5 Presence of coronary angioplasty implant and graft; Z82.49 Family history of ischemic heart disease and other diseases of the circulatory system
CPT/HCPCS: 36415; 71046; 80053; 83735; 84484; 85025; 85610; 85730; 93005; 99285

== ENCOUNTER 2021-02-07 11:39 | Emergency (ER) | payer MEDICARE, BC ==
[2021-02-07 11:48] VITALS: BP 136/87; PULSE 89; RESP 18; TEMP 98
[2021-02-07] MEDS ORDERED: OXYMETAZOLINE 0.05% NASL SPRAY 1 SPRAY BOTTLE NASAL STA (13:30)
--- NOTE | 2021-02-07 13:30 | ED ---
ENT HPI - General Chief complaint: ENT Stated complaint: Bloody Nose Time Seen by Provider: 02/07/21 12:36 Source: EMS Mode of arrival: EMS Limitations: no limitations - History of Present Illness Initial comments: Patient is a 80-year-old female presenting to the emergency Department with complaints of a bloody nose. Patient states she dropped something in her bathroom, bent over to pick it up when her nose started bleeding. She did not hit her nose, no trauma. She does take Plavix about every other day. She denies having a headache, no chest pain or short of breath, no recent fevers or chills. She has no further complaints. Upon arrival to the ER, her vitals are stable. - Related Data Home Medications Medication Instructions Recorded Confirmed Montelukast [Singulair] 10 mg PO HS@209904/17/14 02/07/21 Clopidogrel Bisulfate [Plavix] 75 mg PO Q48H 05/05/19 02/07/21 Apixaban [Eliquis] 5 mg PO BID@0900,209902/07/21 02/07/21 Metoprolol Tartrate [Lopressor] 50 mg PO BID@0900,209902/07/21 02/07/21 Pantoprazole Sodium [Protonix] 40 mg PO DAILY@0900 02/07/21 02/07/21 Rosuvastatin [Crestor] 20 mg PO DAILY@0900 02/07/21 02/07/21 Allergies Allergy/AdvReac Type Severity Reaction Status Date / Time Milk Containing Products Allergy Mild Wheezing Verified 02/07/21 13:49 [Dairy] codeine AdvReac Nausea & Verified 02/07/21 13:49 Vomiting Review of Systems ROS Statement: Those systems with pertinent positive or pertinent negative responses have been documented in the HPI. ROS Other: All systems not noted in ROS Statement are negative. Past Medical History Past Medical History: Atrial Fibrillation, Asthma, Coronary Artery Disease (CAD), Chest Pain / Angina, Fibromyalgia, GERD/Reflux, Hyperlipidemia, Hypertension, Syncope Additional Past Medical History / Comment(s): Syncope, hiatal hernia History of Any Multi-Drug Resistant Organisms: None Reported Past Surgical History: Appendectomy, Heart Catheterization With Stent, Hernia Repair, Tonsillectomy, Tubal Ligation Past Anesthesia/Blood Transfusion Reactions: No Reported Reaction Additional Past Anesthesia/Blood Transfusion Reaction / Comment(s): hard time waking up the patient Date of Last Stent Placement:: 04/2014 Past Psychological History: No Psychological Hx Reported Smoking Status: Never smoker Past Alcohol Use History: Occasional Past Drug Use History: None Reported - Past Family History Mother Family Medical History: Coronary Artery Disease (CAD), Diabetes Mellitus Additional Family Medical History / Comment(s): Pt is adopted. Father Family Medical History: Coronary Artery Disease (CAD), Diabetes Mellitus Additional Family Medical History / Comment(s): Pt is adopted. General Exam - General Exam Comments Initial Comments: GENERAL: Patient is well-developed and well-nourished. Patient is nontoxic and in no acute distress. HEAD: Atraumatic, normocephalic. EYES: Pupils equal round and reactive to light, extraocular movements intact, sclera anicteric, conjunctiva are normal. Eyelids were unremarkable. ENT: TMs normal, nares patent, oropharynx clear without exudates. Moist mucous membranes. No active nasal bleeding. NECK: Normal range of motion, supple without lymphadenopathy or JVD. LUNGS: Unlabored respirations. Breath sounds clear to auscultation bilaterally and equal. No wheezes rales or rhonchi. HEART: Regular rate and rhythm without murmurs, rubs or gallops. ABDOMEN: Soft, nontender, normoactive bowel sounds. No guarding, no rebound. No masses appreciated. : Deferred MUSCULOSKELETAL: Normal extremities with adequate strength and normal range of motion, no pitting or edema. No clubbing or cyanosis. NEUROLOGICAL: Patient is alert and oriented x 3. Motor and sensory are also intact. Cranial nerves II through XII grossly intact. Symmetrical smile. Normal speech, normal gait. PSYCH: Normal mood, normal affect. SKIN: Warm, Dry, normal turgor, no rashes or lesions noted. Limitations: no limitations Course Vital Signs 02/07/21 11:42 Temperature 98 F Pulse Rate 89 Respiratory 18 Rate Blood Pressure 136/87 O2 Sat by Pulse 95 Oximetry Medical Decision Making - Medical Decision Making Patient is a 80-year-old female who presenting with a nosebleed. No trauma or injury. She does take Plavix every other day. On examination, there is no active bleeding. Patient was observed for another 30 minutes with no active bleeding. She is stable for discharge. I discussed with patient that if her nosebleed restarts to apply pressure for 10 minutes, leaning forward, blow out the clots and may also use Afrin. She is in agreement with this plan of care. She can follow-up with her PCP. Case discussed with Dr. Sen. Disposition Clinical Impression: Nosebleed Disposition: HOME SELF-CARE Condition: Stable Instructions (If sedation given, give patient instructions): Nosebleed (ED) Additional Instructions: Please return to the Emergency Department if symptoms worsen or any other concerns. If nose bleed restarts, apply pressure with nose clamp for 10 minutes, blowout blood clot is present, repeat this process. May also use Afrin nasal spray. Follow-up with your regular doctor. Is patient prescribed a controlled substance at d/c from ED?: No Referrals: Cedric Mccormack MD [Primary Care Provider] - 1-2 days
== END 2021-02-07 14:14 | disposition home or self-care (01) ==
LOC: EC 11:39
DX: R04.0 Epistaxis (principal); I48.91 Unspecified atrial fibrillation; J45.909 Unspecified asthma, uncomplicated; I25.10 Atherosclerotic heart disease of native coronary artery without angina pectoris; E78.5 Hyperlipidemia, unspecified; M79.7 Fibromyalgia; I10 Essential (primary) hypertension; K21.9 Gastro-esophageal reflux disease without esophagitis; Z79.899 Other long term (current) drug therapy
CPT/HCPCS: 99283

== ENCOUNTER → 2021-09-26 | Outpatient (CLI) | payer MEDICARE, BC ==
[2021-09-26 13:33] LABS: African American GFR (CKD) >90 (>60 ml/min/1.73 sqM); Blood Urea Nitrogen 24 mg/dL (7-17); Non-African American GFR(CKD) 89 (>60 ml/min/1.73 sqM)
--- NOTE | 2021-09-26 14:49 | CT ---
EXAMINATION TYPE: CT abdomen w con DATE OF EXAM: 09/26/2021 HISTORY: Lesion LT anterior kidney CT DLP: 691.50mGycm Automated Exposure Control for Dose Reduction was Utilized. CONTRAST: CT scan of the abdomen is performed with IV Contrast, patient injected with 100 mL of Isovue 300. COMPARISON: Prior CT abdomen and pelvis May 07, 2019 FINDINGS: LUNG BASES: Coronary artery calcification and/or stent in the RCA distribution redemonstrated. LIVER/GB: There are 2 Subcentimeter hypodense lesions in the liver axial image 24 and 27 that are sta ble presumed benign. PANCREAS: No significant abnormality is seen. SPLEEN: No significant abnormality is seen. ADRENALS: No significant abnormality is seen. KIDNEYS: Symmetric cervical medullary uptake and excretion without hydronephrosis seen bilaterally. N o suspicious solid or cystic mass in either kidney. BOWEL: Oral contrast does not reach colonic level. No suspicious small or large bowel dilatation is s een. LYMPH NODES: No new greater than 1cm abdominal lymph nodes are appreciated. OSSEOUS STRUCTURES: Underlying dextroconvex scoliosis centered at L3 level is redemonstrated. There i s grade 1 retrolisthesis L3 on L4. There is moderate to severe disc space narrowing with spurring and sclerosis left L3-L4 level redemonstrated. OTHER: Moderate calcified plaque in the ectatic abdominal aorta is present. IMPRESSION: No concerning solid or cystic renal mass. No significant change from 2019 CT.
== END ==
LOC: RADCTMAIN 12:24
PROVIDERS: ATTEND Internal Medicine Geriatric Medicine
DX: N28.89 Other specified disorders of kidney and ureter (principal)
CPT/HCPCS: 82565; 84520; 74160; 36415; Q9967

== ENCOUNTER → 2023-06-23 | Outpatient (CLI) | payer MEDICARE, BC ==
--- NOTE | 2023-06-23 13:39 | XR ---
EXAM TYPE: LUMBAR SPINE X RAY SERIES COMPARISON: CT scan 09/26/2021 HISTORY: Pain TECHNIQUE: 4 views are submitted. FINDINGS: Alignment is anatomic. The pedicles are intact. The transverse processes are intact. There is diff use osteopenia with scoliotic curve to the spine and multilevel degenerative disc disease. Severe troy nges L2-3 and L3-L4. There is a superior endplate compression deformity of L3. There is progressed fr om prior exam of 2020. Multilevel facet arthropathy and additional [id number] degenerative pratt ge. There are numerous vascular calcifications. IMPRESSION: 1. Scoliosis with multilevel severe degenerative disc disease and facet arthropathy. Multilevel mt inal encroachment. 2. There is a age indeterminate superior endplate mild compression fracture L3 which is new from prio r CT scan. Approximate 10-15% loss of vertebral body height. Correlate for history of recent trauma. A Yellow level critical message alert has been initiated for Cedric Mccormack MD via the [employer] Critical Results System on 06/23/2023 1:37 PM. This message alert has been sent to Cedric Mccormack MD via the preferences provided by the clinician for the receipt of Radiology Critical Findings. Message ID [id number].
== END | disposition home or self-care (01) ==
LOC: RADXRMAIN 12:52
PROVIDERS: ATTEND Internal Medicine Geriatric Medicine
DX: M51.36 Other intervertebral disc degeneration, lumbar region (principal); M47.816 Spondylosis without myelopathy or radiculopathy, lumbar region; M48.56XA Collapsed vertebra, not elsewhere classified, lumbar region, initial encounter for fracture; M41.86 Other forms of scoliosis, lumbar region
CPT/HCPCS: 72100

== ENCOUNTER → 2025-01-02 | Outpatient (CLI) | payer OTHER ==
[2025-01-03 02:48] LABS: Basophils # (A) 0.03 X 10*3/uL (0.00-0.10); Basophils % (A) 0.5 %; Eosinophils # (A) 0.04 X 10*3/uL (0.04-0.35); Eosinophils % (A) 0.7 %; HCT 41.2 % (37.2-46.3); HGB 12.9 g/dL (12.0-15.0); Lymphocytes # (A) 1.82 X 10*3/uL (0.90-5.00); Lymphocytes % (A) 32.7 %; MCH 31.9 pg (27.0-32.0); MCHC 31.3 g/dL (32.0-37.0); MCV 101.7 FL (80.0-97.0); Mean Platelet Volume 10.4 FL (9.5-12.2); Monocytes # (A) 0.65 X 10*3/uL (0.20-1.00); Monocytes % (A) 11.7 %; NRBC Per 100 WBC 0 X 10*3/uL (0.00-0.01); Neutrophils # (A) 3.01 X 10*3/uL (1.80-7.70); Neutrophils % (A) 54.2 %; Platelet Count 303 X 10*3/uL (140-440); RBC 4.05 X 10*6/uL (4.10-5.20); RDW 12.3 % (11.5-14.5); WBC 5.56 X 10*3/uL (4.50-10.00)
[2025-01-03 03:13] LABS: Blood Urea Nitrogen 21.6 mg/dL (9.0-27.0); Calcium 9.9 mg/dL (8.7-10.3); Carbon Dioxide 25.9 mmol/L (21.6-31.8); Chloride 104 mmol/L (96-109); Glucose 93 mg/dL (70-110); Potassium 4.1 mmol/L (3.5-5.5); Sodium 142 mmol/L (135-145)
== END | disposition home or self-care (01) ==
LOC: RADCTMAIN 15:01
PROVIDERS: ATTEND Orthopaedic Surgery
DX: M16.12 Unilateral primary osteoarthritis, left hip (principal)
CPT/HCPCS: 80048; 85025; 85730

== ENCOUNTER 2025-01-16 09:15 | Day surgery (SDC) | payer MEDICARE, BC ==
[~2025-01-16 09:15] MED LIST: ALPRAZolam 0.25 MG TAB PO PRN; ALPRAZolam 0.5 MG TAB PO PRN; NITROGLYCERIN SL TABS 0.4 MG TAB SUBLINGUAL PRN
[2025-01-16] MEDS: SODIUM CHLORIDE 0.9% 1,000 ML in EMPTY BAG 1 BAG IV SCH (09:43)
[2025-01-16] MEDS: ASPIRIN 325 MG TAB PO STA (09:43)
[2025-01-16] MEDS: IV FLUID CONTINUATION 1,000 ML IV ONE ×2 (09:44→16:39)
[2025-01-16] MEDS: ONDANSETRON 4 MG/2 ML VIAL IVP ONE (10:52)
[2025-01-16] MEDS: HEPARIN SODIUM,PORCINE (1 ML) 2,500 UNIT in SODIUM CHLORIDE 0.9% 250 ML IRRIGATION PRN (10:53)
[2025-01-16] MEDS: HEPARIN SODIUM,PORCINE 10,000 UNIT in SODIUM CHLORIDE 0.9% 1,000 ML IRRIGATION PRN (10:53)
[2025-01-16] MEDS: MIDAZOLAM 2 MG/2 ML VIAL IVP ONE (10:59)
[2025-01-16] MEDS: LIDOCAINE 1% INJ 10MG/ML (20 ML MDV) SQ ONE (11:01)
[2025-01-16] MEDS: VERAPAMIL SYRINGE (5 MG/10 ML) INTRAARTER ONE (11:03)
[2025-01-16] MEDS: HEPARIN SODIUM 1,000 UN/ML (10ML VL) IVP ONE (11:13)
[2025-01-16] MEDS: NITROGLYCERIN 1000MCG/10ML SYRINGE INTRACORON ONE (11:25)
[2025-01-16] MEDS: CLOPIDOGREL 75 MG TAB PO ONE (12:16)
[2025-01-16] MEDS: IOPAMIDOL-370 100ML BTL INJ ONE (13:05)
[2025-01-16] MEDS: ACETAMINOPHEN TAB 500 MG TAB PO STA (13:30)
--- NOTE | 2025-01-16 14:02 | CC ---
CARDIAC CATHETERIZATION REPORT PROCEDURES PERFORMED: 1. Left heart catheterization and coronary angiography. 2. Percutaneous transluminal coronary angioplasty and. 3. stenting of in-stent restenosis within mid left anterior descending, a new stent in proximal left anterior descending and also in mid/distal left anterior descending. All drug-eluting stents were used. 4. Intravascular ultrasound of left anterior descending. PERFORMED BY: Dr. Lisa Pop. Date: 01/16/25 ANESTHESIA: Moderate conscious sedation time was 2 hours and 4 minutes. The patient was administered Versed. Oxygen saturation, hemodynamics, and EKG were monitored closely. CLINICAL INFORMATION: Ms. Pena is an 84-year-old lady with a history of CAD, bronchial asthma, hypertension, hyperlipidemia, paroxysmal atrial fibrillation, and degenerative joint disease. She underwent stenting of LAD and circumflex performed in 2013 and RCA was stented in 2019. She has been having symptoms of angina and in preparation for her left elective hip arthroplasty, I performed a Lexiscan stress test, which revealed ischemia in the LAD distribution and she was brought in for the procedure after due discussion regarding risks, benefits, and options. PROCEDURE NOTE: Under local anesthesia and strict aseptic precautions with the help of ultrasound, I gained access into the right radial artery. There was some spasm in the brachial artery and I had to give additional verapamil and also used a glidewire. With this, I was able to advance the catheters without much of a problem. Using a JR4 and JL3.5 catheters, I performed coronary angiography and the same right catheter was used to check LV pressure, but LV-gram was not performed. Following the diagnostic procedure, I went on to perform intervention of the LAD and following the intervention, the sheath was taken out and a TR band applied as per protocol with saturation of the fingers of the right hand of 92%. The patient tolerated the procedure well. She received 600 mg of Plavix and she will take aspirin and Plavix without interruption at least for 6 months and will then consider elective hip surgery. CARDIAC CATHETERIZATION FINDINGS: The left ventricular end-diastolic pressure was about 14 mmHg without any gradient across the aortic valve. CORONARY ANGIOGRAPHY FINDINGS: Right coronary artery: This is a dominant vessel, was stented in the past, has about a 30% to 40% proximal narrowing. Stented segment is widely patent with good flow. Distally bifurcates into a larger PDA, a smaller PLV, both of which have minor irregularities. No significant restenosis in the RCA, which has no more than 35% to 40% narrowing with good flow. Left main coronary artery: Short patent vessel. No significant disease. Bifurcates into LAD and circumflex. Left anterior descending coronary artery: Fair caliber vessel, has a previous stent and within the midportion of the stent, there is an eccentric 99% stenosis with sluggish flow. Beyond it, the vessel has diffuse disease all the way throughout to the middle 1/3rd. The vessel therefore has a 95% to 99% stenosis within the previous stent and beyond the stent, the entire vessel is diffusely diseased. Proximal to the stent also there is a 50% narrowing. Left posterior circumflex coronary artery: Nondominant vessel, has previous circumflex stent that is widely patent, but proximally the circumflex vessel which is nondominant, has an eccentric 70% to 80% stenosis beyond which the caliber improves. The stented segment is patent. The circumflex therefore has a new 70% narrowing which is significant. Left ventriculogram was not performed. FINAL IMPRESSION: This patient has a right-dominant system, acceptable filling pressures, no gradient. Dominant RCA that was stented is widely patent. No significant disease. Left main is free of significant disease. LAD has a 99% mid lesion within the previously placed stent with diffuse disease beyond that. Circumflex has a 70% narrowing and the circumflex stent distal to the narrowing is widely patent with good flow. RECOMMENDATIONS: I recommended intervention of the LAD that was performed in the same setting. PCI PROCEDURE NOTE: The existing 6-Hebrew introducer was used to perform the procedure. I used a 3.5 CLS guide catheter to cannulate the left coronary artery. I used a Whisper wire and a Corsair catheter. With this combination, the wire was advanced distally. I used a 2.5 balloon to dilate the stented area. There was modest improvement, but beyond the stented area, there was a significant lesion. After performing a dilatation with a noncompliant 2.5 balloon, I advanced and deployed a 2.25 caliber 23 mm long Xience stent immediately distal to the previous stent. And then following that, I deployed an additional 2.25 caliber 8 mm long Xience to telescope this. All the stented area was then dilated with a 3.0 balloon. I deployed a new 3.0 mm 15 mm long Xience stent within the previously placed LAD stent. The same balloon was used to dilate the entire area. I then took a 3.25 caliber NC Trek balloon of 15 mm length and dilated the previously placed stent and also dilated part of the Xience stent in a small caliber area of 2.25 as well. The entire area was stented with a 3.25 caliber NC Trek. The entire stented area was then dilated with a 3.25 caliber NC Trek balloon. I tried to advance an IVUS catheter. I noted there was a lesion proximal to the stent. This was addressed with a 3.0 balloon and then I deployed a 3.5 caliber 12 mm long Xience stent. Excellent angiographic result was achieved. I then performed intravascular ultrasound and noted that there was 1 area of underexpansion also noted on angiogram and this was addressed with a 3.5 NC trek 8 mm long and dilated that area. The final intravascular ultrasound revealed full expansion with good apposition, although there was extensive calcification, especially in the mid segment. Excellent angiographic result was achieved. The sheath was then taken out and TR band applied as per protocol with saturation in the fingers of 92%. The patient received 600 mg of Plavix. Results were discussed with the patient and family. She will be discharged tomorrow if she remains stable and I will address the circumflex at a later time. MMODL / IJN: [id number] / MTDD
[2025-01-16] MEDS: METOPROLOL TARTRATE 25 MG TAB PO SCH (19:34)
[2025-01-16] MEDS: ATORVASTATIN 80 MG TAB PO SCH (19:34)
[2025-01-16] MEDS: SODIUM CHLORIDE 0.9% 1,000 ML IV SCH (19:35)
[2025-01-16] MEDS ORDERED: ONDANSETRON 4 MG/2 ML VIAL IVP PRN (20:21)
[2025-01-16] MEDS: ACETAMINOPHEN TAB 325 MG TAB PO PRN (21:00)
[2025-01-16] MEDS: FLUTICASONE 110 MCG INHALER INHALATION SCH (23:00)
[2025-01-17] MEDS: PANTOPRAZOLE 40 MG TABLET PO SCH (06:10)
[2025-01-17 06:49] LABS: Basophils % (A) 0 %; Eosinophils # (A) 0.1 k/uL (0-0.7); Eosinophils % (A) 1 %; HCT 36.5 % (34.0-46.0); Hypochromasia Slight; Lymphocytes # (A) 1.4 k/uL (1.0-4.8); Lymphocytes % (A) 23 %; MCH 30.6 pg (25.0-35.0); MCHC 30.1 g/dL (31.0-37.0); MCV 101.6 fL (80.0-100.0); Mean Platelet Volume 7.1; Monocytes # (A) 0.8 k/uL (0-1.0); Monocytes % (A) 13 %; Neutrophils # (A) 3.7 k/uL (1.3-7.7); Neutrophils % (A) 60 %; Platelet Count 237 k/uL (150-450); RBC 3.59 m/uL (3.80-5.40); RDW 12.3 % (11.5-15.5); WBC 6.2 k/uL (3.8-10.6)
[2025-01-17 07:09] LABS: African American GFR (CKD) >90 (>60 ml/min/1.73 sqM); Anion Gap 4 mmol/L; Blood Urea Nitrogen 7 mg/dL (7-17); Calcium 8.7 mg/dL (8.4-10.2); Carbon Dioxide 27 mmol/L (22-30); Chloride 107 mmol/L (98-107); Glucose 91 mg/dL (74-99); Non-African American GFR(CKD) >90 (>60 ml/min/1.73 sqM); Potassium 3.3 mmol/L (3.5-5.1); Sodium 138 mmol/L (137-145)
[2025-01-17] MEDS: CLOPIDOGREL 75 MG TAB PO SCH (08:52)
[2025-01-17] MEDS: ASPIRIN 81 MG PO SCH (08:52)
[2025-01-17] MEDS: EZETIMIBE 10 MG TAB PO SCH (08:52)
[2025-01-17] MEDS: POTASSIUM CHLORIDE ER 20 MEQ TAB.ER PO SCH (08:52)
[2025-01-17] MEDS: MONTELUKAST 10 MG TAB PO SCH (08:52)
[2025-01-17] MEDS: LOSARTAN 50 MG TAB PO SCH (08:52)
[2025-01-17] MEDS: METOPROLOL TARTRATE 50 MG TAB PO SCH (08:52)
[2025-01-17 11:25] VITALS: BP 134/81; PULSE 72; RESP 18; TEMP 97.9
--- NOTE | 2025-01-17 22:51 | DS ---
DISCHARGE SUMMARY DIAGNOSES: 1. Unstable angina. 2. Bronchial asthma. 3. Known triple-vessel coronary artery disease with prior percutaneous coronary intervention. 4. Hypertension. 5. Hyperlipidemia. PROCEDURES PERFORMED: PTCA and stenting of LAD in multiple areas with intravascular ultrasound. This patient was admitted for elective cardiac cath given an abnormal stress test prior to elective hip operation. Cardiac cath revealed significant restenotic lesions in the LAD, which was a heavily calcified vessel with diffuse disease. Multiple stents were deployed. Excellent angiographic result was achieved. Procedure was performed from right radial approach. She also has a disease in circumflex, which will be addressed later. RCA that was stented in 2019 was widely patent. Postprocedure course was uneventful. PHYSICAL EXAMINATION: VITAL SIGNS: The patient's blood pressure is 150/80, pulse rate is about 70 per minute. NECK: No JVD. CARDIAC: S1, S2 heard normally. Short systolic murmur. LUNGS: Revealed decent air entry. Right radial pulse is good and site has some ecchymosis, but pulse is good. Plan is to increase activity, discharge her today and she will be seen in the office on the . Discharge instructions given. She will take Eliquis 2.5 mg b.i.d. from this evening, aspirin 81 mg daily and Plavix 75 mg daily. After I see her in a week, I will discontinue the aspirin and continue Eliquis and Plavix combination. Discussed this with the patient at length. She will be discharged later on today. Her medications were called to her pharmacy today including sublingual nitroglycerin, losartan 50 mg daily and Plavix 75 mg daily. MMODL / IJN: [id number] /
== END 2025-01-17 13:04 | disposition home or self-care (01) ==
LOC: CATHCVL 09:15 → 6NMEDSUR 13:02 → 3SCARD 13:02 → CATHCVL 01-17 13:04
PROVIDERS: ATTEND Internal Medicine Interventional Cardiology
DX: T82.855A Stenosis of coronary artery stent, initial encounter (principal); I25.110 Atherosclerotic heart disease of native coronary artery with unstable angina pectoris; I25.2 Old myocardial infarction; I48.0 Paroxysmal atrial fibrillation; I10 Essential (primary) hypertension; E78.00 Pure hypercholesterolemia, unspecified; J45.909 Unspecified asthma, uncomplicated; Z79.51 Long term (current) use of inhaled steroids; Z79.01 Long term (current) use of anticoagulants; Z79.899 Other long term (current) drug therapy; Z88.5 Allergy status to narcotic agent; Z91.09 Other allergy status, other than to drugs and biological substances
CPT/HCPCS: 94640; 92978; 93458; 80048; 85025; C1769 ×4; C9600; C1887 ×2; C1894; C1753; C1874 ×4; C1751; C1725 ×3; J2250; J1644 ×3; J2405; J2003; Q9967; J2305

== ENCOUNTER 2025-02-08 10:11 | Day surgery (SDC) | payer MEDICARE, BC ==
[2025-02-06 12:53] VITALS: BMI 21.9
[2025-02-08] MEDS: SODIUM CHLORIDE 0.9% 1,000 ML in EMPTY BAG 1 BAG IV SCH ×2 (10:38→14:36)
[2025-02-08] MEDS: IV FLUID CONTINUATION 1,000 ML IV ONE (10:42)
[2025-02-08] MEDS: MIDAZOLAM 2 MG/2 ML VIAL IVP ONE (12:29)
[2025-02-08] MEDS: LIDOCAINE 1% INJ 10MG/ML (20 ML MDV) SQ ONE ×2 (12:30→12:49)
[2025-02-08] MEDS: VERAPAMIL SYRINGE (5 MG/10 ML) INTRAARTER ONE (12:35)
[2025-02-08] MEDS: HEPARIN SODIUM,PORCINE 10,000 UNIT in SODIUM CHLORIDE 0.9% 1,000 ML IRRIGATION PRN (12:50)
[2025-02-08] MEDS: HEPARIN SODIUM,PORCINE (1 ML) 2,500 UNIT in SODIUM CHLORIDE 0.9% 250 ML IRRIGATION PRN (12:50)
[2025-02-08] MEDS: HEPARIN SODIUM 1,000 UN/ML (10ML VL) IVP ONE (12:57)
[2025-02-08] MEDS: HYDROmorphone 0.5 MG/0.5 ML SYRINGE IVP ONE (13:15)
[2025-02-08] MEDS: NITROGLYCERIN 1000MCG/10ML SYRINGE INTRACORON ONE (13:17)
[2025-02-08] MEDS: IOPAMIDOL-370 100ML BTL INJ ONE (13:28)
[2025-02-08] MEDS ORDERED: ATROPINE SULFATE 0.1 MG/ML 10ML SYRINGE IV PRN (13:39)
[2025-02-08] MEDS ORDERED: ZOLPIDEM 5 MG TAB PO PRN (13:39)
[2025-02-08] MEDS ORDERED: MAG HYDROX/AL HYDROX/SIMETH 30 ML CUP PO PRN (13:39)
[2025-02-08] MEDS ORDERED: RX INFO: IV CONTRAST WAS GIVEN 1 EACH MISC MISCELLANE PRN (13:39)
[2025-02-08] MEDS: CLOPIDOGREL 75 MG TAB PO ONE (13:53)
--- NOTE | 2025-02-08 14:06 | P.PCN ---
Date of Procedure: 02/08/25 Description of Procedure: Date of Service February 08, 2025 PTCA and stenting of proximal circumflex coronary artery. Indication for procedure unstable angina Proceedure #1 coronary angiography #2 intravascular ultrasound of left posterior circumflex coronary artery #3 PTCA and stenting of proximal left circumflex coronary artery with a drug-eluting stent Moderate conscious sedation time was 54 minutes. Patient was administered Versed oxygen saturation hemodynamics and EKG were monitored closely Performed by: Dr. Elidia Pop Clinical Information this is a 84-year-old lady with a known history of multivessel PCI, hypertension hyperlipidemia who underwent stenting of a complex LAD lesion on January 16 of this year 3 weeks ago. She also had a previous stenting of the right coronary artery and circumflex in the past. Following the stenting of LAD which was a long procedure she received a lot of contrast and was advised to come in for elective PCI of circumflex which had a 90% lesion in the proximal portion before the previously placed stent which was further distal but patent. RCA that was stented before was patent. All risks benefits options rationale were explained and patient was brought in for the procedure. She understood all details and wished to proceed. Procedure note: Under strict aseptic precautions and local anesthesia I gained access into the right radial artery. I advanced the sheath and as I was taking the wire out the wire got stuck and then I tried to take the sheath and the wire to get her out and then secured hemostasis but I noted that a small piece of wire was actually left in the radial artery. The sheath was already out and therefore applied a TR band secured good hemostasis with saturation the fingers of 95% I advised the patient that I will try to snare this wire hopefully tomorrow and we will heparinize her after the procedure. I switched over to the right femoral approach and under strict aseptic precautions and local anesthesia using micropuncture needle technique placed a 6 Kinyarwanda introducer. A 3.5 curved left Jv guide catheter was used to cannulate the left coronary artery and I performed an injection and noted that the LAD that was stented 3 weeks ago was widely patent with excellent flow. I then turned my attention to the circumflex. I used a run-through short wire and crossed the lesion. I performed intravascular ultrasound the guide support was insufficient. I performed the ultrasound and noted that the caliber of the vessel was between 3.2 and 3.5. I predilated the lesion with a 3.0 caliber 12 mm long NC trek balloon at 12 frankie and then deployed a 3.25 caliber 15 mm long stent at 14 frankie. I performed repeat intravascular ultrasound and noted that the stent was fully expanded and good apposition was noted. Angiographic and ultrasound appearance was excellent. Patient received a total of 4500 units of heparin and she weighs only 62 kg. However the ACT machine was inadequate and we had issues with it. At the end of the procedure ACT was 214 and an additional 1000 units was given. Patient was already on Plavix and Eliquis. I gave her additional 300 mg of Plavix. An Angio-Seal device was used to secure hemostasis and she was sent to the room in a stable condition. I will address the right radial micropuncture wire snaring tomorrow at 9 AM and will heparinize her through the night. I discussed this in detail with the patient as well as her daughter. Patient will be on Plavix and Eliquis combination for 1 year. For the first [address] her on Plavix 75 mg, aspirin 81 mg and Eliquis 2.5 mg twice daily. Then I will discontinue aspirin. Equipment used JL 3.5 guide catheter not very supportive. A run-through wire. Intravascular ultrasound. 3.25 caliber 15 mm long Xience stent. Result excellent angiographic result was achieved. Ultrasound revealed full expansion and good apposition. Results discussed with patient and daughter. She has a small micropuncture wire in the right radial artery that broke off which will be snared tomorrow. Will place her on a heparin drip
[2025-02-08] MEDS: HEPARIN SOD,PORK IN 0.45% NACL 25,000 UNIT in 0.45% NACL 1 250ML.BAG IV SCH (14:33)
[2025-02-08] MEDS: ATORVASTATIN 80 MG TAB PO STA (14:36)
[2025-02-08] MEDS: ASPIRIN 325 MG TAB PO STA (14:36)
[2025-02-08] MEDS: ACETAMINOPHEN TAB 325 MG TAB PO STA (15:12)
[2025-02-08] MEDS: ONDANSETRON ODT 4 MG TAB PO STA (18:02)
[2025-02-08] MEDS: METOPROLOL TARTRATE 50 MG TAB PO SCH (20:35)
[2025-02-08] MEDS: ATORVASTATIN 80 MG TAB PO SCH (20:35)
[2025-02-08] MEDS: MONTELUKAST 10 MG TAB PO SCH (20:35)
[2025-02-08] MEDS: FLUTICASONE 110 MCG INHALER INHALATION SCH (21:16)
[2025-02-08] MEDS: ACETAMINOPHEN TAB 325 MG TAB PO PRN (23:51)
[2025-02-09 04:51] LABS: Basophils % (A) 0 %; Eosinophils # (A) 0.1 k/uL (0-0.7); Eosinophils % (A) 2 %; HCT 33.1 % (34.0-46.0); HGB 10.5 gm/dL (11.4-16.0); Hypochromasia Moderate; Lymphocytes # (A) 1.6 k/uL (1.0-4.8); Lymphocytes % (A) 33 %; MCHC 31.7 g/dL (31.0-37.0); MCV 100.9 fL (80.0-100.0); Mean Platelet Volume 7.4; Monocytes # (A) 0.4 k/uL (0-1.0); Monocytes % (A) 7 %; Neutrophils # (A) 2.6 k/uL (1.3-7.7); Neutrophils % (A) 55 %; Platelet Count 233 k/uL (150-450); RBC 3.28 m/uL (3.80-5.40); RDW 12.8 % (11.5-15.5); WBC 4.8 k/uL (3.8-10.6)
[2025-02-09 05:22] VITALS: PULSE 70
[2025-02-09 05:29] LABS: ALT 12 U/L (4-34); AST 32 U/L (14-36); African American GFR (CKD) >90 (>60 ml/min/1.73 sqM); Alkaline Phosphatase 46 U/L (38-126); Anion Gap 7 mmol/L; Blood Urea Nitrogen 8 mg/dL (7-17); Calcium 8.8 mg/dL (8.4-10.2); Carbon Dioxide 24 mmol/L (22-30); Chloride 107 mmol/L (98-107); Glucose 80 mg/dL (74-99); Non-African American GFR(CKD) >90 (>60 ml/min/1.73 sqM); Potassium 3.2 mmol/L (3.5-5.1); Sodium 138 mmol/L (137-145); Total Bilirubin 0.5 mg/dL (0.2-1.3); Total Protein 5.3 g/dL (6.3-8.2)
[2025-02-09] MEDS: LOSARTAN 50 MG TAB PO SCH (06:31)
[2025-02-09] MEDS: CLOPIDOGREL 75 MG TAB PO SCH (06:31)
[2025-02-09] MEDS: ASPIRIN 81 MG PO SCH (06:31)
[2025-02-09] MEDS: PANTOPRAZOLE 40 MG TABLET PO SCH (06:31)
[2025-02-09] MEDS: ONDANSETRON 4 MG/2 ML VIAL IVP ONE (08:05)
[2025-02-09] MEDS: fentaNYL (PF) 50 MCG/1 ML VIAL IVP ONE (08:17)
[2025-02-09] MEDS: VERAPAMIL SYRINGE (5 MG/10 ML) INTRAARTER ONE (08:17)
[2025-02-09] MEDS: LIDOCAINE 1% INJ 10MG/ML (10 ML MDV) SQ ONE (08:17)
[2025-02-09] MEDS: SODIUM CHLORIDE 0.9% 1,000 ML IV ONE (08:25)
--- NOTE | 2025-02-09 08:33 | P.PCN ---
Date of Procedure: 02/09/25 Operative Findings: Percutaneous peripheral arterial procedure Performing physician MD Lisa Caceres MD Procedure performed Removal of micropuncture wire from the right radial artery Ultrasound-guided access of the right radial artery Complication None Level of sedation Moderate with sedation length of 10 minutes Procedure description After obtaining informed consent the patient was brought to the cardiac [employer] Service Manager with right radial artery was cannulated using micropuncture technique under ultrasound guidance a micropuncture wire passed easily then I placed a 6 Sudanese 11 cm sheath at the right radial artery. At that point anticoagulation was initiated using heparin and the patient was given 2 mg of verapamil intra- arterial. Subsequently under fluoroscopy guidance we were able to snare the micropuncture wire using a small snare. The procedure was completed with no complication. Postprocedure management Sheath removal Follow-up with the patient
[2025-02-09] MEDS: HEPARIN SODIUM 1,000 UN/ML (10ML VL) IVP ONE (08:37)
[2025-02-09 09:24] VITALS: TEMP 98.2
[2025-02-09 10:11] VITALS: RESP 18
--- NOTE | 2025-02-09 13:08 | DS ---
DISCHARGE SUMMARY DIAGNOSIS: Unstable angina. PROCEDURES PERFORMED: 1. Percutaneous transluminal coronary angioplasty. 2. and stenting of circumflex coronary artery. 3. Retrieval of a micropuncture guidewire from the right radial artery. This patient was brought in for elective PCI of circumflex coronary artery. I attempted the approach from right radial. There was a small piece of wire that was stuck to the sheath and when I took the sheath out, the wire did not come out. I applied pressure and TR band and performed the procedure of PCI of circumflex from the right femoral approach uneventfully. Postprocedure course was uneventful. This morning, Dr. Shah was able to go back, place a 6-Mosotho introducer in the right radial artery and he retrieved the piece of wire with a snare uneventfully. This information was described in detail to the patient and her daughter. She is doing well. She will be discharged later on this afternoon once the TR band comes out. Discharge instructions regarding activity, diet, and medications were given. She has an appointment to see me on the of this month at 1:45 p.m. Vitals are stable. No JVD. S1, S2 with a short systolic murmur is audible. Lungs are clear. Abdomen is soft, nontender. Lower extremities reveal palpable pulses. No edema. Central nervous system is normal. Right radial site has a lot of ecchymosis, but pulse is good. MMODL / IJN: [id number] /
[2025-02-09 14:49] VITALS: BP 110/71
== END 2025-02-09 16:24 | disposition home or self-care (01) ==
LOC: CATHCVL 10:11 → 3SCARD 13:23 → CATHCVL 13:23 → 6NMEDSUR 13:23 → CATHCVL 02-09 16:24
PROVIDERS: ATTEND Internal Medicine Interventional Cardiology
DX: I25.110 Atherosclerotic heart disease of native coronary artery with unstable angina pectoris (principal); I10 Essential (primary) hypertension; E78.00 Pure hypercholesterolemia, unspecified; Z88.5 Allergy status to narcotic agent; Z88.8 Allergy status to other drugs, medicaments and biological substances; Z79.899 Other long term (current) drug therapy
CPT/HCPCS: 92978; 80053; 84132; 85025; 85730 ×2; 99152; 99153; C9600; C1760; C1894 ×2; C1769 ×2; C1753; C1725; J2250; J1644 ×5; J2405; J2003 ×2; J1171; Q9967; J3010; J2305